=== PATIENT | female | born 1955 | race Caucasian/White ===

== ENCOUNTER 2019-06-05 13:35 | Emergency (ER) | payer MEDICARE, MEDICAID, SELFPAY ==
[2019-06-05 13:38] VITALS: BP 158/82; PULSE 100; RESP 24; TEMP 37; O2SAT 98; BMI 36.8
[2019-06-05 15:20] VITALS: BP 154/77; PULSE 87; RESP 22; O2SAT 96
--- NOTE | 2019-06-05 15:27 | W.ED.NAVMDI ---
Documented by User: Miranda Vernon 06/05/19 16:44 HPI - Nausea/Vomiting/Diarrhea General: Chief complaint: Nausea/Vomiting/Diarrhea Stated complaint: sob Time Seen by Provider: 06/05/19 15:16 Source: patient Mode of arrival: ambulatory History of Present Illness: HPI Narrative: Pt states that she has been unable to eat for 3 weeks due to nausea and vomiting. She states once she is able to swallow anything it immediately comes back up in a projectile vomit. She has had some diarrhea but only a few episodes. She is feeling weak from inability to eat. Notes a constant fullness. MD elicited complaint: nausea, vomiting, diarrhea and abdominal pain Associated nausea: Yes Location of pain: Epigastric Quality: cramping and stabbing Associated symtoms: Reports nausea Review of Systems General: Reports: 10 or more systems reviewed and unremarkable except in HPI and below Const: Reports: change in appetite Resp: Reports: shortness of breath GI: Reports: abdominal pain, nausea, vomiting, difficulty swallowing and feeling full early PFS ED PFSH: Social History Smoking and tobacco status: current every day smoker Physical Exam Const: COMMON NORMALS: no apparent distress, oriented x3, no limitations and alert GENERAL APPEARANCE: cooperative and comfortable ORIENTATION/CONSCIOUSNESS: Yes awake, Yes oriented to person, Yes oriented to place and Yes oriented to time HENMT: COMMON NORMALS: normocephalic, head/scalp atraumatic, external ears normal, EAC's normal, TM's normal bilaterally and external nose normal HEAD & SCALP: normal to inspection, normocephalic and atraumatic FACE & SINUS: normal facial exam, sinuses nontender and face symmetric NOSE: external nose normal, nares normal and no nasal discharge EXTERNAL EAR: Yes external ears normal EXTERNAL AUDITORY CANAL: EAC's normal TYMPANIC MEMBRANE: TM's normal bilaterally MOUTH: oral and palatal mucosa normal, lip normal and tongue normal THROAT: posterior oropharynx normal, tonsils normal and uvula midline Eye: COMMON NORMALS: PERRL, EOMs intact bilaterally and conjunctivae normal GENERAL EYE: normal appearance of both eyes and normal light reflex EYELID: eyelids normal CONJUNCTIVA: Yes conjunctivae normal PUPIL: Yes PERRL EOM: Yes EOM abnormal DIRECT OPHTHALMOSCOPY: Yes normal light reflex Neck/C-Spine: COMMON NORMALS: full ROM, no lymphadenopathy, supple, no meningeal signs, no JVD and thyroid normal GENERAL: Yes normal visual inspection THYROID: thyroid normal CERVICAL SPINE: Yes cervical ROM normal and Yes normal cervical lordosis Lymph: LYMPHATIC: no lymphadenopathy noted Chest: COMMONS NORMALS: inspection of chest normal and palpation of chest normal Resp: COMMON NORMALS: normal respiratory effort, no retractions and clear to auscultation bilaterally AUSCULTATION: clear to auscultation bilaterally Cardio: COMMON NORMALS: no JVD, regular rate, regular rhythm, S1 normal heart sound, S2 normal heart sound, no gallops, no clicks, no murmurs, no rub and peripheral pulses 2+ throughout RATE: regular rate RHYTHM: regular rhythm HEART SOUNDS: S1 normal and S2 normal PERIPHERAL PULSES: pulses 2+ throughout GI: COMMON NORMALS: normal to inspection, nondistended, normoactive bowel sounds INSPECTION: Yes normal to inspection PALPATION: Yes firm, Yes tender and Yes guarding : COMMON NORMALS: No no CVA tenderness and Yes external appearance normal BLADDER/KIDNEY EXAM: No no CVA tenderness Back/Pelvis: COMMON NORMALS: negative for no CVA tenderness Extremity: COMMON NORMALS: normal to inspection, full ROM, normal capillary refill, no joint enlargement, no clubbing, cyanosis or edema, no calf tenderness and no pedal edema GENERAL: Yes normal exam except as noted Neuro: COMMON NORMALS: oriented x3, moves all extremities, no focal motor deficits, no sensory deficits noted and gait normal SENSORIUM/ORIENTATION: Yes alert, Yes oriented to person, Yes oriented to place and Yes oriented to time MENINGEAL SIGNS: Yes no meningeal signs Psych: COMMON NORMALS: mental status grossly normal, thought process normal, cooperative, affect normal, speech normal and activity/motor behavior normal SPEECH: Yes normal speech THOUGHT PROCESS: normal thought process Skin: COMMON NORMALS: no rashes or lesions noted, no wounds and skin turgor normal GENERAL SKIN EXAM: no rashes or lesions noted and turgor normal Course ED course: Pt appears uncomfortable during examination but not toxic. Her abdomen is notably distended and is guarding of the epigastric region. Labs, IV meds, and imaging ordered. Awaiting results. Vital Signs: Vital signs: Vital Signs Temperature 98.6 F 06/05/19 13:38 Pulse Rate 94 06/05/19 18:21 Respiratory Rate 17 06/05/19 18:21 Blood Pressure 120/85 06/05/19 18:21 Pulse Oximetry 95 06/05/19 18:21 MDM - Nausea/Vomiting/Diarrhea Lab Data: Labs: Lab Results 06/05/19 06/05/19 06/05/19 Range/Units 15:22 15:22 17:34 WBC 7.4 (4.0-10.0) 10^3/ uL RBC 3.92 L (4.1-5.3) 10^6/u L Hgb 12.0 (11.5-15.3) g/dL Hct 36.2 L (37.0-47.0) % MCV 92.3 (81-99) fL MCH 30.6 (28.0-34.0) pg MCHC 33.1 (30.0-36.0) g/dL RDW 14.4 (12.1-15.1) % Plt Count 341 (130-400) 10^3/c mm MPV 9.0 (7.4-10.4) fL Neut % (Auto) 63.9 % Lymph % (Auto) 24.7 % [place] % (Auto) 10.2 % Eos % (Auto) 0.4 % Baso % (Auto) 0.4 % Neut # (Auto) 4.7 (1.8-7.7) 10^3/u L Lymph # (Auto) 1.8 (0.8-4.8) 10^3/u L [place] # (Auto) 0.8 (0.2-0.9) 10^3/u L Eos # (Auto) 0.0 (0.0-0.8) 10^3/u L Baso # (Auto) 0.0 (0.0-0.1) 10^3/u L Nucleated RBC % (a uto) 0 % Nucleated RBCs # 0.0 /100WBC Sodium 134 L (136-145) mmol/L Potassium 3.6 (3.5-5.1) mmol/L Chloride 97 L (98-107) mmol/L Carbon Dioxide 23 (22-29) mmol/L Anion Gap 17.6 (5-19) BUN 14 (8-23) mg/dL Creatinine 1.1 H (0.5-0.9) mg/dL GFR Calculation 49.8 L (90-130) mL/min Glucose 109 (65-115) mg/dL Calculated Osmolal ity 275 L (285-295) mOsm/k g Calcium 8.8 (8.5-10.5) mg/dL Total Bilirubin 0.4 (0.15-1.2) mg/dL AST 17 (0-32) U/L ALT 7 (0-33) U/L Alkaline Phosphata se 78 (35-105) IU/L Total Protein 6.3 L (6.6-8.7) g/dL Albumin 3.3 L (3.5-5.2) g/dL Globulin 3.0 (1.3-4.6) g/dL Urine Color Yellow (Yellow) Urine Appearance Clear (CLEAR) Urine pH 7 (5-7) Ur Specific Gravit y 1.000 L (1.005-1.030) Urine Protein Neg (Negative) Urine Glucose (UA) Norm (Normal) Urine Ketones Negative (Negative) Urine Blood 2+ H (Negative) Urine Nitrate Negative (Negative) Urine Bilirubin Neg (NEGATIVE) Urine Urobilinogen Norm (Negative) mg/dL Ur Leukocyte Kaylee ase Negative (Negative) Urine RBC 0-4 H (0-2) /hpf Urine WBC None (0-5) /hpf Ur Squamous Epith Cells 0-4 H (0-5) Urine Bacteria Trace (NONE) Discharge Plan Discharge Patient Disposition: Home, Self-Care Clinical Impression: Acid reflux Qualifiers: Esophagitis presence: with esophagitis Qualified Code(s): K21.0 - Gastro-esophageal reflux disease with esophagitis Condition: Stable Prescriptions: New Zofran 4 mg tablet 4 mg PO Q6H PRN (Reason: nausea and vomiting) Qty: 14 RF: 0 Zantac 150 mg tablet 150 mg PO DAILY Qty: 30 RF: 0 Protonix 40 mg tablet,delayed release (DR/EC) 40 mg PO DAILY 28 Days RF: 0 No Action tizanidine 4 mg tablet 2 - 4 mg PO BID RF: 0 Keflex 250 mg Capsule 500 mg PO TID RF: 0 hydrocodone-acetaminophen 10-325 mg tablet See Rx Instructions .ROUTE .COMPLEX RF: 0 Sola-York Original 325-1,916-1,000 mg Tablet, Effervescent 1 tab PO TID PRN (Reason: unknown) RF: 0 Silver Biotics 5 ml PO BID RF: 0 aspirin 325 mg Tablet 325 mg PO DAILY PRN (Reason: unknown) RF: 0 Discharge Orders: Discharge Order (Routine); Ordered 06/05/19 Ordered By: July Esquivel Referrals: Kashmir Lebron DO [Family Provider] - Discharge Diet: Clear Liquid Discharge Activity: Resume usual activity Activity Restrictions/Additional Instructions: Please follow up with Dr. Lebron to see if he would like you to follow up with GI. Depending on your insurance, you may be able to call to [facility] and schedule an appointment without a referral. Discharge Date/Time: 06/05/19 18:21 Sign Out Sign Out Data: Patient Sign Out occurred on 06/05/19 at 17:18. Patient's care was discussed, and care was transferred from to ELISEO Hartmann. Coding Level of Care Code ED Electronic Integrated Systems Mechanic for Chg Fwd Exam Comprehensive Documented by User: ELISEO Hartmann 06/05/19 22:06 HPI - Nausea/Vomiting/Diarrhea General: Chief complaint: Nausea/Vomiting/Diarrhea Stated complaint: sob Time Seen by Provider: 06/05/19 15:16 [facility] ED PFSH: Social History Smoking and tobacco status: current every day smoker Course Vital Signs: Vital signs: Vital Signs Temperature 98.6 F 06/05/19 13:38 Pulse Rate 94 06/05/19 18:21 Respiratory Rate 17 06/05/19 18:21 Blood Pressure 120/85 06/05/19 18:21 Pulse Oximetry 95 06/05/19 18:21 MDM - Nausea/Vomiting/Diarrhea MDM Narrative: Medical decision making narrative: Care assumed from CARL Villegas pending results of her CT scan. CT scan is unremarkable at this time. Note states that she is not able to eat or drink anything for 3 weeks however patient is able to hold down liquids and soft foods. Patient tells me she does have a longstanding history of GERD. She at one point was taking Zantac however due to the recall of this medication states she is no longer taking it and feels like her symptoms started after she stopped this medication. Ultimately based on her symptoms it sounds like she would benefit from a GI consultation/possible EGD. Patient states she is not a candidate for EGD as she was told she has some type of diverticuli in her esophagus that make scoping her impossible. Recommend she follow-up with Dr. Lebron for GI referral or based on her insurance may be able to call up to [facility] and get this referral on her own. I believe some manufacturers are still producing Zantac that has not been recalled so we will go ahead and write her prescription for this in hopes that pharmacy can fill it. We will also place her on Protonix and Zofran. Return to ED precautions given. Lab Data: Labs: Lab Results 06/05/19 06/05/19 06/05/19 Range/Units 15:22 15:22 17:34 WBC 7.4 (4.0-10.0) 10^3/ uL RBC 3.92 L (4.1-5.3) 10^6/u L Hgb 12.0 (11.5-15.3) g/dL Hct 36.2 L (37.0-47.0) % MCV 92.3 (81-99) fL MCH 30.6 (28.0-34.0) pg MCHC 33.1 (30.0-36.0) g/dL RDW 14.4 (12.1-15.1) % Plt Count 341 (130-400) 10^3/c mm MPV 9.0 (7.4-10.4) fL Neut % (Auto) 63.9 % Lymph % (Auto) 24.7 % [place] % (Auto) 10.2 % Eos % (Auto) 0.4 % Baso % (Auto) 0.4 % Neut # (Auto) 4.7 (1.8-7.7) 10^3/u L Lymph # (Auto) 1.8 (0.8-4.8) 10^3/u L [place] # (Auto) 0.8 (0.2-0.9) 10^3/u L Eos # (Auto) 0.0 (0.0-0.8) 10^3/u L Baso # (Auto) 0.0 (0.0-0.1) 10^3/u L Nucleated RBC % (a uto) 0 % Nucleated RBCs # 0.0 /100WBC Sodium 134 L (136-145) mmol/L Potassium 3.6 (3.5-5.1) mmol/L Chloride 97 L (98-107) mmol/L Carbon Dioxide 23 (22-29) mmol/L Anion Gap 17.6 (5-19) BUN 14 (8-23) mg/dL Creatinine 1.1 H (0.5-0.9) mg/dL GFR Calculation 49.8 L (90-130) mL/min Glucose 109 (65-115) mg/dL Calculated Osmolal ity 275 L (285-295) mOsm/k g Calcium 8.8 (8.5-10.5) mg/dL Total Bilirubin 0.4 (0.15-1.2) mg/dL AST 17 (0-32) U/L ALT 7 (0-33) U/L Alkaline Phosphata se 78 (35-105) IU/L Total Protein 6.3 L (6.6-8.7) g/dL Albumin 3.3 L (3.5-5.2) g/dL Globulin 3.0 (1.3-4.6) g/dL Urine Color Yellow (Yellow) Urine Appearance Clear (CLEAR) Urine pH 7 (5-7) Ur Specific Gravit y 1.000 L (1.005-1.030) Urine Protein Neg (Negative) Urine Glucose (UA) Norm (Normal) Urine Ketones Negative (Negative) Urine Blood 2+ H (Negative) Urine Nitrate Negative (Negative) Urine Bilirubin Neg (NEGATIVE) Urine Urobilinogen Norm (Negative) mg/dL Ur Leukocyte Kaylee ase Negative (Negative) Urine RBC 0-4 H (0-2) /hpf Urine WBC None (0-5) /hpf Ur Squamous Epith Cells 0-4 H (0-5) Urine Bacteria Trace (NONE) Imaging Data^: CT Abd/Pel: Radiologist's impression: [address] [address] [address] Scan Report Signed Patient: Marele Vanessa Unit #: [id number] : 1955 [id number] Age/Sex: 63 / F ADM Date: 06/05/19 Loc: ER Room/Bed: Attending Dr: Ordering Provider/Ordering MD: Miranda Vernon NP Date of Service: 06/05/19 Procedure(s): CT abdomen pelvis w con* [id number] Accession Number(s): [id number] Report Number: [id number] PROCEDURE INFORMATION: Exam: CT Abdomen And Pelvis With Contrast Exam date and time: 06/05/2019 4:31 PM Age: 63 years old Clinical indication: Abdominal pain; Epigastric; Prior surgery; Surgery type: Gb, appy, tubal, hysto; Additional info: Nv/epigastric pain TECHNIQUE: Imaging protocol: Computed tomography of the abdomen and pelvis with intravenous contrast. Total DLP: 1806.03 mGy-cm Radiation optimization: All CT scans at this facility use at least one of these dose optimization techniques: automated exposure control; mA and/or kV adjustment per patient size (includes targeted exams where dose is matched to clinical indication); or iterative reconstruction. Contrast material: VISI 320; Contrast volume: 95 ml; Contrast route: IV; COMPARISON: No relevant prior studies available. FINDINGS: Lungs: Limited assessment lung bases without visible evidence of active cardiopulmonary process. Liver: Mild hepatomegaly. Gallbladder and bile ducts: Status post cholecystectomy. Maximum diameter of the common bile duct lumen 10 mm. No visible significant intra or extrahepatic biliary ectasia. No visible choledocholithiasis. Pancreas: Pancreas unremarkable. No pancreatic ductal ectasia visible. Spleen: Spleen unremarkable. No splenomegaly. Adrenals: Adrenal glands unremarkable. Kidneys and ureters: Tiny nonobstructing calyceal nephrolithiasis foci inferior pole left kidney measuring 3 mm. No hydronephrosis or perinephric fluid. No visible ureterolithiasis. No visible bladder stone. Stomach and bowel: Mild diverticulosis coli without evidence for diverticulitis. No evidence for adynamic or reactive ileus. Appendix: Status post appendectomy. Intraperitoneal space: See Reproductive finding. Vasculature: The abdominal aorta is nonaneurysmal. Mild arterial sclerotic disease. Lymph nodes: No visible evidence of mesenteritis/panniculitis or mesenteric lymphadenitis/lymphadenopathy. Bladder: See Kidneys and ureters finding. Reproductive: Status post hysterectomy. No free fluid the pelvis identified. Bones/joints: Early degenerative disease and degenerative disc disease L5/S1 with early vacuum disc phenomenon. Facet arthrosis. Soft tissues: Heavy body habitus. CT/CT abdomen pelvis w con* [id number] IMPRESSION: 1. Currently no visible evidence for acute abdominal or pelvic pathologic process. 2. Tiny nonobstructing calyceal nephrolithiasis foci inferior pole left kidney approximately 3 mm. 3. Nonurgent/nonemergent, chronic, and postoperative findings discussed in text above. Radiation Dose CTDIVOL = (mGy): DLP = 1806.03 (mGy-cm) Dictated By: Manpreet Gonzalez Signed By: Manpreet Gonzalez Signed Date/Time: 06/05/191733 DD/ 32 Discharge Plan Discharge Patient Disposition: Home, Self-Care Clinical Impression: Acid reflux Qualifiers: Esophagitis presence: with esophagitis Qualified Code(s): K21.0 - Gastro-esophageal reflux disease with esophagitis Condition: Stable Prescriptions: New Zofran 4 mg tablet 4 mg PO Q6H PRN (Reason: nausea and vomiting) Qty: 14 RF: 0 Zantac 150 mg tablet 150 mg PO DAILY Qty: 30 RF: 0 Protonix 40 mg tablet,delayed release (DR/EC) 40 mg PO DAILY 28 Days RF: 0 No Action tizanidine 4 mg tablet 2 - 4 mg PO BID RF: 0 Keflex 250 mg Capsule 500 mg PO TID RF: 0 hydrocodone-acetaminophen 10-325 mg tablet See Rx Instructions .ROUTE .COMPLEX RF: 0 Sola-[place] Original 325-1,916-1,000 mg Tablet, Effervescent 1 tab PO TID PRN (Reason: unknown) RF: 0 Silver Biotics 5 ml PO BID RF: 0 aspirin 325 mg Tablet 325 mg PO DAILY PRN (Reason: unknown) RF: 0 Discharge Orders: Discharge Order (Routine); Ordered 06/05/19 Ordered By: July Esquivel Referrals: Kashmir Lebron DO [Family Provider] - Discharge Diet: Clear Liquid Discharge Activity: Resume usual activity Activity Restrictions/Additional Instructions: Please follow up with Dr. Lebron to see if he would like you to follow up with GI. Depending on your insurance, you may be able to call to [facility] and schedule an appointment without a referral. Discharge Date/Time: 06/05/19 18:21 Sign Out Sign Out Data: Patient Sign Out occurred on 06/05/19 at 17:18. Patient's care was discussed, and care was transferred from to ELISEO Hartmann. Coding Level of Care Code ED Electronic Integrated Systems Mechanic for Chg Fwd Exam Comprehensive
--- NOTE | 2019-06-05 15:56 | CTR_ITS ---
PROCEDURE INFORMATION: Exam: CT Abdomen And Pelvis With Contrast Exam date and time: 06/05/2019 4:31 PM Age: 63 years old Clinical indication: Abdominal pain; Epigastric; Prior surgery; Surgery type: Gb, appy, tubal, hysto; Additional info: Nv/epigastric pain TECHNIQUE: Imaging protocol: Computed tomography of the abdomen and pelvis with intravenous contrast. Total DLP: 1806.03 mGy-cm Radiation optimization: All CT scans at this facility use at least one of these dose optimization techniques: automated exposure control; mA and/or kV adjustment per patient size (includes targeted exams where dose is matched to clinical indication); or iterative reconstruction. Contrast material: VISI 320; Contrast volume: 95 ml; Contrast route: IV; COMPARISON: No relevant prior studies available. FINDINGS: Lungs: Limited assessment lung bases without visible evidence of active cardiopulmonary process. Liver: Mild hepatomegaly. Gallbladder and bile ducts: Status post cholecystectomy. Maximum diameter of the common bile duct lumen 10 mm. No visible significant intra or extrahepatic biliary ectasia. No visible choledocholithiasis. Pancreas: Pancreas unremarkable. No pancreatic ductal ectasia visible. Spleen: Spleen unremarkable. No splenomegaly. Adrenals: Adrenal glands unremarkable. Kidneys and ureters: Tiny nonobstructing calyceal nephrolithiasis foci inferior pole left kidney measuring 3 mm. No hydronephrosis or perinephric fluid. No visible ureterolithiasis. No visible bladder stone. Stomach and bowel: Mild diverticulosis coli without evidence for diverticulitis. No evidence for adynamic or reactive ileus. Appendix: Status post appendectomy. Intraperitoneal space: See Reproductive finding. Vasculature: The abdominal aorta is nonaneurysmal. Mild arterial sclerotic disease. Lymph nodes: No visible evidence of mesenteritis/panniculitis or mesenteric lymphadenitis/lymphadenopathy. Bladder: See Kidneys and ureters finding. Reproductive: Status post hysterectomy. No free fluid the pelvis identified. Bones/joints: Early degenerative disease and degenerative disc disease L5/S1 with early vacuum disc phenomenon. Facet arthrosis. Soft tissues: Heavy body habitus. CT/CT abdomen pelvis w con* [id number] IMPRESSION: 1. Currently no visible evidence for acute abdominal or pelvic pathologic process. 2. Tiny nonobstructing calyceal nephrolithiasis foci inferior pole left kidney approximately 3 mm. 3. Nonurgent/nonemergent, chronic, and postoperative findings discussed in text above. Radiation Dose CTDIVOL = (mGy): DLP = 1806.03 (mGy-cm)
[2019-06-05 16:07] LABS: Basophils % 0.4 %; Eosinophils % 0.4 %; Hematocrit 36.2 % (37.0-47.0); Lymphocytes # 1.8 10^3/uL (0.8-4.8); Lymphocytes % 24.7 %; Mean Corpuscular HGB Conc 33.1 g/dL (30.0-36.0); Mean Corpuscular Hemoglobin 30.6 pg (28.0-34.0); Mean Corpuscular Volume 92.3 fL (81-99); Monocytes # 0.8 10^3/uL (0.2-0.9); Monocytes % 10.2 %; Neutrophils # 4.7 10^3/uL (1.8-7.7); Neutrophils % 63.9 %; Nucleated Red Blood Cells % 0 %; Platelet Count 341 10^3/cmm (130-400); Red Blood Count 3.92 10^6/uL (4.1-5.3); Red Cell Distribution Width 14.4 % (12.1-15.1); White Blood Count 7.4 10^3/uL (4.0-10.0)
[2019-06-05] MEDS: sodium chloride 0.9% 500 ML 999 ML IV (16:08)
[2019-06-05] MEDS: pantoprazole 40 mg SDV IVP (16:08)
[2019-06-05] MEDS: ondansetron 2 mg/ML SDV 2 mL 4 MG IVP (16:09)
[2019-06-05 16:17] LABS: Alanine Aminotransferase 7 U/L (0-33); Albumin Level 3.3 g/dL (3.5-5.2); Alkaline Phosphatase 78 IU/L (35-105); Anion Gap 17.6 (5-19); Aspartate Amino Transferase 17 U/L (0-32); Blood Urea Nitrogen 14 mg/dL (8-23); Calcium 8.8 mg/dL (8.5-10.5); Carbon Dioxide 23 mmol/L (22-29); Chloride 97 mmol/L (98-107); Glomerular Filtration Rate 49.8 mL/min (90-130); Glucose 109 mg/dL (65-115); Osmolality Calculated 275 mOsm/kg (285-295); Potassium 3.6 mmol/L (3.5-5.1); Sodium 134 mmol/L (136-145); Total Bilirubin 0.4 mg/dL (0.15-1.2); Total Protein 6.3 g/dL (6.6-8.7)
[2019-06-05] MEDS: iodixanol 320 mg/mL 100mL Btl IV (16:50)
[2019-06-05 18:02] LABS: Add Urine Microscopic? YES; Bilirubin Urine Neg (NEGATIVE); Blood Urine 2+ (Negative); Glucose Urine UA Norm (Normal); Ketones Urine Negative (Negative); Leukocyte Esterase Urine Negative (Negative); Nitrate Urine Negative (Negative); Protein Urine Neg (Negative); Urine Appearance Clear (CLEAR); Urine Color Yellow (Yellow); Urobilinogen Urine Norm (Negative); pH Urine 7 (5-7)
[2019-06-05 18:08] LABS: Add Urine Culture? No; Bacteria Urine TRACE; RBC Urine 0-4 /hpf (0-2); Squamous Epithelial Cell Urine 0-4 (0-5)
[2019-06-05 18:21] VITALS: BP 120/85; PULSE 94; RESP 17; O2SAT 95
== END 2019-06-05 18:21 | disposition home or self-care (01) ==
PROVIDERS: Nurse Practitioner Family; Emergency Provider Physician Assistant; Family Provider Internal Medicine
DX: K21.0 Gastro-esophageal reflux disease with esophagitis (principal); F17.210 Nicotine dependence, cigarettes, uncomplicated; N20.0 Calculus of kidney
CPT/HCPCS: 12345; 74177; 80053; 81001; 85025; 96360; 96361; 96374; 96375; 99282; 99283; C9113; J2405; J7040; Q9967

== ENCOUNTER 2019-06-12 13:38 | Inpatient (IN) | payer MEDICARE, MEDICAID, SELFPAY ==
[2019-06-12 13:43] VITALS: BP 162/122; PULSE 94; RESP 18; TEMP 37.1; O2SAT 96; BMI 34.3
--- NOTE | 2019-06-12 13:51 | ED_ITS ---
Entered by Antonia Atwood, acting as scribe for Sixto Bowling DO HPI - SOB/Dyspnea General: Chief Complaint: Shortness of Breath/Dyspnea Stated Complaint: SOB Time Seen by Provider: 06/12/19 13:47 Source: patient Mode of arrival: ambulatory Limitations: no limitations History of Present Illness: MD elicited complaint: shortness of breath and cough (last night) Onset (ago): week(s) (3 weeks ago) Context: recent illness Timing: constant and progressively worsening Severity: moderate Exacerbating factors: exertion, coughing and deep breaths Relieving factors: nothing Associated symptoms: Reports cough Treatment prior to arrival: none PFSH ED PFSH: Medical History History of TIA (transient ischemic attack) HTN (hypertension) Social History Smoking and tobacco status: current every day smoker Physical Exam Const: COMMON NORMALS: no apparent distress, average body habitus, oriented x3, no limitations, healthy appearing, alert and well nourished HENMT: COMMON NORMALS: normocephalic, head/scalp atraumatic, hearing grossly normal bilaterally, external ears normal, EAC's normal, TM's normal bilaterally, external nose normal, nasal mucous membranes and turbinates normal, moist oral mucous membranes, oropharynx normal, dentition normal and gingiva normal HEAD & SCALP: normocephalic and atraumatic NOSE: external nose normal and nasal mucous membranes and turbinates normal EXTERNAL EAR: Yes external ears normal EXTERNAL AUDITORY CANAL: EAC's normal TYMPANIC MEMBRANE: TM's normal bilaterally Eye: COMMON NORMALS: PERRL, EOMs intact bilaterally, conjunctivae normal, no scleral icterus, no papilledema, normal visual benitez by confrontation and fundi normal bilaterally CONJUNCTIVA: Yes conjunctivae normal PUPIL: Yes PERRL DIRECT OPHTHALMOSCOPY: Yes no papilledema and Yes fundi normal bilaterally Neck/C-Spine: COMMON NORMALS: full ROM, no lymphadenopathy, supple, no meningeal signs, no JVD, thyroid normal and no carotid bruits THYROID: thyroid normal Chest: COMMONS NORMALS: inspection of chest normal and palpation of chest normal Cardio: COMMON NORMALS: no JVD, regular rate, regular rhythm, S1 normal heart sound, S2 normal heart sound, no gallops, no clicks, no murmurs, no rub and peripheral pulses 2+ throughout RATE: regular rate RHYTHM: regular rhythm HEART SOUNDS: S1 normal and S2 normal PERIPHERAL PULSES: pulses 2+ throughout GI: COMMON NORMALS: normal to inspection, nondistended, normoactive bowel sounds, soft to palpation, non-tender, no hepatosplenomegaly, no masses and no bruits PALPATION: Yes soft and Yes no hepatosplenomegaly : COMMON NORMALS: Yes no CVA tenderness and Yes external appearance normal BLADDER/KIDNEY EXAM: Yes no CVA tenderness Back/Pelvis: COMMON NORMALS: no CVA tenderness, thoracic and lumbar spine normal to inspection, no thoracic nor lumbar tenderness, thoraco-lumbar ROM normal and straight leg raise negative bilaterally Extremity: COMMON NORMALS: normal to inspection, full ROM, normal capillary refill, no joint enlargement, no clubbing, cyanosis or edema, no calf tenderness and no pedal edema Neuro: COMMON NORMALS: oriented x3 SENSORIUM/ORIENTATION: Yes alert MENINGEAL SIGNS: Yes no meningeal signs Skin: COMMON NORMALS: no rashes or lesions noted, no wounds, skin turgor normal, no jaundice, no petechiae and no mottling GENERAL SKIN EXAM: no rashes or lesions noted and turgor normal Course Vital Signs: Vital signs: Vital Signs Temperature 98.7 F 06/12/19 13:43 Pulse Rate 94 06/12/19 13:43 Respiratory Rate 18 06/12/19 13:43 Blood Pressure 162/122 06/12/19 13:43 Pulse Oximetry 96 06/12/19 13:43 MDM - SOB/Dyspnea Lab Data: Labs: Lab Results 06/12/19 06/12/19 06/12/19 Range/Units 14:25 14:25 14:43 WBC 7.9 (4.0-10.0) 10^3/ uL RBC 3.47 L (4.1-5.3) 10^6/u L Hgb 10.5 L (11.5-15.3) g/dL Hct 33.4 L (37.0-47.0) % MCV 96.3 (81-99) fL MCH 30.3 (28.0-34.0) pg MCHC 31.4 (30.0-36.0) g/dL RDW 15.5 H (12.1-15.1) % Plt Count 287 (130-400) 10^3/c mm MPV 9.1 (7.4-10.4) fL Neut % (Auto) 74.7 % Lymph % (Auto) 15.2 % Letcher % (Auto) 8.5 % Eos % (Auto) 0.9 % Baso % (Auto) 0.3 % Neut # (Auto) 5.9 (1.8-7.7) 10^3/u L Lymph # (Auto) 1.2 (0.8-4.8) 10^3/u L Letcher # (Auto) 0.7 (0.2-0.9) 10^3/u L Eos # (Auto) 0.1 (0.0-0.8) 10^3/u L Baso # (Auto) 0.0 (0.0-0.1) 10^3/u L Nucleated RBC % (a uto) 0 % Nucleated RBCs # 0.0 /100WBC Sodium 136 (136-145) mmol/L Potassium 4.4 (3.5-5.1) mmol/L Chloride 102 (98-107) mmol/L Carbon Dioxide 21 L (22-29) mmol/L Anion Gap 17.4 (5-19) BUN 11 (8-23) mg/dL Creatinine 0.9 (0.5-0.9) mg/dL GFR Calculation 62.8 L (90-130) mL/min Glucose 99 (65-115) mg/dL Calculated Osmolal ity 278 L (285-295) mOsm/k g Calcium 9.1 (8.5-10.5) mg/dL Total Bilirubin 0.5 (0.15-1.2) mg/dL AST 18 (0-32) U/L ALT 9 (0-33) U/L Alkaline Phosphata se 86 (35-105) IU/L NT-Pro-B Natriuret Pep 2251 H (0-125) pg/mL Total Protein 6.7 (6.6-8.7) g/dL Albumin 4.0 (3.5-5.2) g/dL Globulin 2.7 (1.3-4.6) g/dL Influenza Type A A g Negative (Negative) POC Influenza B Ag Negative (Negative) Discharge Plan Discharge Patient Disposition: Admitted As Inpatient Clinical Impression: Congestive heart failure Qualifiers: Heart failure type: unspecified Heart failure chronicity: acute on chronic Qualified Code(s): I50.9 - Heart failure, unspecified Condition: Fair Referrals: Kashmir Lebron DO [Family Provider] - Coding Level of Care Code ED Employment Director for Chg Fwd Exam Comprehensive The documentation recorded by the Rai castrejon Bridget Annette, accurately reflects the service I personally performed and the decisions made by Dash rios Donald P, DO Jun 12, 2019 13:38
--- NOTE | 2019-06-12 13:57 | XR_ITS ---
WS: [id number] Portable AP upright chest, 06/12/2019 Clinical Data: dyspnea Comparison: PA and lateral chest, 08/02/2018. Findings: The heart is enlarged and the pulmonary vascularity is increased. There may be small bilate ral effusions. The aortic arch and descending aorta are tortuous. No pneumonia or pneumothorax is see n. XR/XR chest 1V portable [id number] Impression: Moderate congestive heart failure.
[2019-06-12 15:03] LABS: Alanine Aminotransferase 9 U/L (0-33); Alkaline Phosphatase 86 IU/L (35-105); Anion Gap 17.4 (5-19); Aspartate Amino Transferase 18 U/L (0-32); Blood Urea Nitrogen 11 mg/dL (8-23); Calcium 9.1 mg/dL (8.5-10.5); Carbon Dioxide 21 mmol/L (22-29); Chloride 102 mmol/L (98-107); Globulin 2.7 g/dL (1.3-4.6); Glomerular Filtration Rate 62.8 mL/min (90-130); Glucose 99 mg/dL (65-115); NT Pro B Type Natriuretic Pept 2251 pg/mL (0-125); Osmolality Calculated 278 mOsm/kg (285-295); Potassium 4.4 mmol/L (3.5-5.1); Sodium 136 mmol/L (136-145); Total Bilirubin 0.5 mg/dL (0.15-1.2); Total Protein 6.7 g/dL (6.6-8.7)
[2019-06-12 15:17] LABS: Influenza A by IFA Negative (Negative); Influenza B by IFA Negative (Negative)
[2019-06-12 15:23] LABS: Basophils % 0.3 %; Eosinophils # 0.1 10^3/uL (0.0-0.8); Eosinophils % 0.9 %; Hematocrit 33.4 % (37.0-47.0); Hemoglobin 10.5 g/dL (11.5-15.3); Lymphocytes # 1.2 10^3/uL (0.8-4.8); Lymphocytes % 15.2 %; Mean Corpuscular HGB Conc 31.4 g/dL (30.0-36.0); Mean Corpuscular Hemoglobin 30.3 pg (28.0-34.0); Mean Corpuscular Volume 96.3 fL (81-99); Mean Platelet Volume 9.1 fL (7.4-10.4); Monocytes # 0.7 10^3/uL (0.2-0.9); Monocytes % 8.5 %; Neutrophils # 5.9 10^3/uL (1.8-7.7); Neutrophils % 74.7 %; Nucleated Red Blood Cells % 0 %; Platelet Count 287 10^3/cmm (130-400); Red Blood Count 3.47 10^6/uL (4.1-5.3); Red Cell Distribution Width 15.5 % (12.1-15.1); White Blood Count 7.9 10^3/uL (4.0-10.0)
[2019-06-12] MEDS: FUROsemide 10 mg/mL SDV 10mL 80 MG IVP (16:01)
[2019-06-12 16:33] LABS: Bilirubin Urine Neg (NEGATIVE); Blood Urine Neg (Negative); Glucose Urine UA Norm (Normal); Ketones Urine Negative (Negative); Leukocyte Esterase Urine Negative (Negative); Nitrate Urine Negative (Negative); Protein Urine Neg (Negative); Specific Gravity, Urine 1.015 (1.005-1.030); Sulfosalicylic Acid Urine Negative; Urine Appearance Clear (CLEAR); Urine Color Straw (Yellow)
[2019-06-12 16:34] LABS: Urobilinogen Urine Norm (Negative)
[2019-06-12] MEDS: ipratropium-albuterol 3 mL Neb INHALATION (16:36)
[2019-06-12 16:39] VITALS: PULSE 108; RESP 24; O2SAT 98
[2019-06-12 16:43] VITALS: PULSE 108; RESP 24; O2SAT 98
--- NOTE | 2019-06-12 17:31 | P.HP_ITS ---
Providers/Chief Complaint Admitting Physician: Renae Wong MD Primary Care Provider: Dr. Lebron Chief Complaint: Worsening SOB History of Present Illness Marlee Vanessa is a 63 year old female with PMHx of Chronic back pain, GERD, Chronic diastolic CHF (not aware of diagnosis previously), Chronic smoker, presents from home for evaluation of worsening shortness of breath over the past several days. She reports a recent GI related illness, had an ER visit on 06/04, was diagnosed with esophagitis and prescribed Protonix which patient states has been very helpful in managing her symptoms. She has had ongoing issues with shortness of breath particularly with exertion though she has noticed that she is having increased shortness of breath with minimal exertion which includes going to the bathroom, inability to lay down, some lower extremity swelling. She has anxiety at baseline and whenever she has an episode of worsening shortness of breath this increases her anxiety and further worsens her shortness of breath. She is not oxygen dependent at baseline and is not actually aware of her history of CHF. There is an echo that was done in July 2018 which is an ejection fraction of 65% with grade 1 diastolic dysfunction. She is not on any diuretics chronically. She has been a long-term smoker for over 40 years. Denies any fever/chills, chest pain though has had chest tightness, syncope or presyncope, recent travel, sick contacts. Influenza screen is negative, white c ount is normal at 7.9, hemoglobin is 10.5, chemistry is within normal limits, BNP is 2251, chest x-ray shows findings consistent with fluid overload. She has received an 80 mg dose of IV Lasix in addition to IV steroids and nebulizer treatment. She is being admitted for further diuresis and close monitoring of her hemodynamic and respiratory status. Review of Systems Const: Reports: change in appetite (decreased appetite) and fatigue; Denies: fever or chills Eyes: Denies: change in vision ENMT: Reports: other (ongoing dysphagia) Card: Reports: edema (bilateral UEs, LEs), swelling of feet/ankles, pre- syncope, shortness of breath on exertion, shortness of breath when lying down and other (chest tightness); Denies: chest pain or lightheadedness Resp: Denies: shortness of breath, productive cough or non-productive cough GI: Reports: bloating; Denies: abdominal pain, nausea, vomiting, vomiting blood or blood in stool : Denies: difficulty urinating, painful urination or urinary frequency Musc: Reports: back pain (chronic) Skin/Breast: Denies: rash Neuro: Denies: numbness in extremities or weakness in extremities Psych: Reports: anxiety Medications/Allergies Allergies Allergy/AdvReac Type Severity Reaction Status Date / Time Penicillins Allergy ALGY-Hives Verified 06/05/19 13:45 PFSH Acute PFSH: Medical History CKD (chronic kidney disease) stage 2, GFR 60-89 ml/min History of TIA (transient ischemic attack) HTN (hypertension) Surgical History H/O: hysterectomy History of cholecystectomy Family History (Updated 06/12/19 @ 19:31 by Renae Wong MD) Mother CAD (coronary artery disease) Social History (Updated 06/12/19 @ 19:32 by Renae Wong MD) Smoking and tobacco status: current every day smoker cigarettes Packs smoked per day: 1 Years cigarettes smoked: 40 Alcohol intake: never Substance/Drug Use: never Lives independently: Yes Vitals/I&O/Wt Last Vital Signs Temp 98.7 F 06/12/19 13:43 Pulse 108 H 06/12/19 16:43 Resp 24 H 06/12/19 16:43 BP 162/122 06/12/19 13:43 Pulse Ox 98 06/12/19 16:43 Weight last 48 hrs Weight 90.718 kg Physical Exam Const: COMMON NORMALS: no apparent distress and oriented x3 GENERAL APPEARANCE: cooperative and anxious; not in distress NUTRITIONAL APPEARANCE: obese morbidly obese ORIENTA TION/CONSCIOUSNESS: Yes awake HENMT: COMMON NORMALS: normocephalic, head/scalp atraumatic, hearing grossly normal bilaterally and moist oral mucous membranes HEAD & SCALP: normocephal ic and atraumatic Eye: COMMON NORMALS: PERRL, EOMs intact bilaterally and conjunctivae normal CONJUNCTIVA: Yes conjunctivae normal PUPIL: Yes PERRL Neck/C-Spine: COMMON NORMALS: full ROM GENERAL: Yes normal visual inspection and Yes trachea midline Resp: COMMON NORMALS: normal respiratory effort, no retractions and no use of accessory muscles EFFORT & INSPECTION: Yes able to speak in complete sentences, Yes symmetric chest movement and No tachypneic AUSCULTATION: crackles and diminished lung sounds OTHER: -on 3 L NC, 95% Cardio: COMMON NORMALS: regular rate, regular rhythm, S1 normal heart sound, S2 normal heart sound and no murmurs RATE: regular rate RHYTHM: regular rh ythm HEART SOUNDS: S1 normal and S2 normal GI: COMMON NORMALS: normal to inspection, nondistended, normoactive bowel so unds, soft to palpation and non-tender INSPECTION: Yes central obesity PALPATION: Yes soft Extremity: COMMON NORMALS: normal to inspection and full ROM; negative for no pedal edema NARRATIVE EXTREMITY EXAM: -1+ pitting edema of bilateral LEs Neuro: COMMON NORMALS: oriented x3, moves all extremities, no focal motor deficits, no sensory deficits noted and gait normal Psych: COMMON NORMALS: mental status grossly normal, thought process normal, cooperative and speech normal SPEECH: Yes normal speech MOOD & AFFECT: Yes anxious THOUGHT PROCESS: normal thought process Skin: COMMON NORMALS: no rashes or lesions noted, no jaundice, no petechiae and no mottling GENERAL SKIN EXAM: no rashes or lesions noted Data : 06/12/19 14:25 06/12/19 14:25 Micro: Microbiology 06/12/19 14:25 Blood Culture - Preliminary Blood SPECIMEN COLLECTED 06/12/19 14:10 Blood Culture - Preliminary Blood SPECIMEN COLLECTED A&P Assessment and plan (1) Congestive heart failure: -acute exacerbation of chronic diastolic CHF as evidenced by worsening SOB, LE edema, BNP elevation (2251), evidence of fluid overload on imaging -received 80 mg of IV lasix in ED, continue IV diuresis -telemetry monitoring -monitor vital signs -daily weights, monitor Is & Os -monitor renal function, lytes -Echo (07/2018): EF=65%, G1DD, no RWMA; negative nuclear stress testing in 12/2016 Status: Acute Qualifiers: Heart failure chronicity: acute on chronic Heart failure type: diastolic Qualified Code(s): I50.33 - Acute on chronic diastolic (congestive) heart failure Code(s): I50.9 - Heart failure, unspecified (2) CKD (chronic kidney disease) stage 2, GFR 60-89 ml/min: -baseline Cr wnl -monitor renal function with diuresis Status: Acute Code(s): N18.2 - Chronic kidney disease, stage 2 (mild) Additional A&P Information -Chronic smoker; nicotine replacement therapy -Morbid obesity: BMI-35 kg/m2 -GERD, reported hx of Zenker's diverticulum, chronic dysphagia -Acute macrocytic anemia; monitor H/H -Chronic back pain; on opiates -Anxiety; Ativan PRN -GI ppx with PPI -DVT ppx with Lovenox -Dispo: home -Code status: FULL code Attestations Medical Necessity Statement*: Marlee Vanessa's hospital stay will require greater than 2 midnights for management of acute CHF exacerbation, needs IV diuresis. Time Spent in Patient Care: Greater than 35 minutes (>than 50% of time spent in counselling and/or direct pt care on unit) . Coding Level of Care Code Acute Drivers' Cash Clerk for Adama Rosado Diagnoses Congestive heart failure I50.33 Heart failure chronicity: acute on chronic Heart failure type: diastolic CKD (chronic kidney disease) stage 2, GFR 60-89 ml/min N18.2
[2019-06-12 17:41] LABS: Add Urine Culture? No; Bacteria Urine TRACE; Squamous Epithelial Cell Urine 0-4 (0-5); WBC Urine 0-4 /hpf (0-5)
[2019-06-12 18:54] VITALS: BP 180/83; PULSE 78; RESP 16; O2SAT 95
[2019-06-12 20:15] VITALS: BP 156/84; PULSE 92; RESP 20; TEMP 37.4; O2SAT 90
[2019-06-12] MEDS: nicotine 14 mg Patch 1 PATCH TRANSDERMA (20:49)
[2019-06-12] MEDS: enoxaparin 40 mg/0.4 mL Syringe SUBCUT (20:51)
[2019-06-12] MEDS: metoprolol tartrate 25 mg Tablet PO (20:54)
[2019-06-12] MEDS: FUROsemide 10 mg/mL SDV 4mL 40 MG IVP (20:58)
[2019-06-12 22:59] VITALS: PULSE 78; RESP 20; O2SAT 91
[2019-06-13] VITALS (7 sets, daily range): BP systolic 106–182; BP diastolic 45–80; PULSE 64–91; RESP 17–20; TEMP 36.9–37.2; O2SAT 91–97
[2019-06-13] MEDS: HYDROcodone-acetaminophen 5-325 mg Tablet 1 TAB PO ×2 (03:56→12:14)
[2019-06-13 05:53] LABS: Hematocrit 31.6 % (37.0-47.0); Hemoglobin 10.2 g/dL (11.5-15.3); Lymphocytes % 16.4 %; Mean Corpuscular HGB Conc 32.3 g/dL (30.0-36.0); Mean Corpuscular Hemoglobin 30.6 pg (28.0-34.0); Mean Corpuscular Volume 94.9 fL (81-99); Mean Platelet Volume 8.7 fL (7.4-10.4); Monocytes # 0.2 10^3/uL (0.2-0.9); Monocytes % 4.2 %; Neutrophils # 4.6 10^3/uL (1.8-7.7); Neutrophils % 78.9 %; Nucleated Red Blood Cells % 0 %; Platelet Count 294 10^3/cmm (130-400); Red Blood Count 3.33 10^6/uL (4.1-5.3); Red Cell Distribution Width 15.1 % (12.1-15.1); White Blood Count 5.8 10^3/uL (4.0-10.0)
[2019-06-13 06:06] LABS: Anion Gap 18.3 (5-19); Blood Urea Nitrogen 16 mg/dL (8-23); Calcium 9.4 mg/dL (8.5-10.5); Carbon Dioxide 23 mmol/L (22-29); Chloride 97 mmol/L (98-107); Glomerular Filtration Rate 45.1 mL/min (90-130); Glucose 138 mg/dL (65-115); Magnesium 2.6 mg/dL (1.7-2.3); Osmolality Calculated 277 mOsm/kg (285-295); Potassium 4.3 mmol/L (3.5-5.1); Sodium 134 mmol/L (136-145)
[2019-06-13 06:18] LABS: Thyroid Stimulating Hormone 3.08 uIU/mL (0.27-4.20)
[2019-06-13 06:40] LABS: Estmated Average Glucose 105; Hemoglobin A1C 5.3 % (4.0-6.0)
[2019-06-13] MEDS: pantoprazole DR 40 mg Tablet PO (09:09)
[2019-06-13] MEDS: aspirin 81 mg EC Tablet PO (09:10)
[2019-06-13] MEDS: nicotine 14 mg Patch 1 PATCH TRANSDERMA (09:10)
[2019-06-13] MEDS: FUROsemide 10 mg/mL SDV 4mL 40 MG IVP (09:10)
[2019-06-13] MEDS: metoprolol tartrate 25 mg Tablet PO (09:10)
--- NOTE | 2019-06-13 10:00 | PC.CHAP ---
Pastoral Care Encounter/Spiritual Assessment Type of Contact [] Declined night assistant visit [] Patient/Family/Request visit [] Outpatient visit [] Follow-up visit [] Physician referral [] Code/Alert [x] Routine visit [] Staff referral [] Actively dying [] Patient sleeping [] Family support [] [] Out of room [] Palliative care [] [] Receiving care in room [] Pre-surgical visit [] Trauma [] Long length of stay [] ICU visit [] Other: Relational/Emotional Strength [x] Patient feels connected with others/family/visitors/staff [] Distress [] Loneliness/isolation [] Abandonment Spirituality of Patient [x] Person of [place] [x] Attends Christianity of their [place] [] Believes in Prayer [] Reads Bible or Muslim materials [] There are Spiritual issues to be addressed Auto Dismantler Interventions [x] Prayer [] Active listening [] Non-anxious presence [] Spiritual/emotional support [] Crisis/trauma care [] Spiritual counseling [] Bereavement support [] Provided bereavement packet [] Provided Bible/devotional materials [] Provided toy/stuffed animal, coloring book to patient or family member [] Provided Communion [] Anointing/[place] [] Salvation [] Completed spiritual assessment [] Other: Impact on Illness or Injury [] Angry [] Fearful [] Anxious [] Often cries [] Exhaustion [] Unable to work [] Unable to attend anabaptist [] Unable to walk/stand [] Unable to read [] Unable to drive [] Unable to eat/drink [] Unable to sleep [] Unable to be with family [] Patient intubated [] Other: Summary patient wants to go home Time spent with patient 10 min
--- NOTE | 2019-06-13 11:08 | PC.RESP ---
Patient given Smoking Cessation information.
--- NOTE | 2019-06-13 15:08 | P.DS_ITS ---
Discharge Providers Date of Admission: 06/12/19 17:30 Date of Discharge: June 13, 2019 Attending Provider at Admission: Renae Wong MD Attending Provider at Discharge: Renae Wong MD Diagnoses at Discharge Discharge Diagnosis (1) Congestive heart failure: Status: Acute Problem details: -acute exacerbation of chronic diastolic CHF as evidenced by worsening SOB, LE edema, BNP elevation (2251), evidence of fluid overload on imaging -received 80 mg of IV lasix in ED, continue IV diuresis -telemetry monitoring -monitor vital signs -daily weights, monitor Is & Os -monitor renal function, lytes -Echo (07/2018): EF=65%, G1DD, no RWMA; negative nuclear stress testing in 12/2016 Qualifiers: Heart failure chronicity: acute on chronic Heart failure type: diastolic Qualified Code(s): I50.33 - Acute on chronic diastolic (congestive) heart failure (2) CKD (chronic kidney disease) stage 2, GFR 60-89 ml/min: Status: Chronic Problem details: -baseline Cr wnl -monitor renal function with diuresis Other Information Additional DC diagnoses/information: -Chronic smoker; nicotine replacement therapy -Morbid obesity: BMI-35 kg/m2 -GERD, reported hx of Zenker's diverticulum, chronic dysphagia -Acute macrocytic anemia; monitor H/H -Chronic back pain; on opiates -Anxiety; Ativan PRN Reason for Visit Reason for Visit: Reason For Visit: Worsening SOB Hospital Course Hospital Course: Patient was admitted to the medical surgical floor and started on IV diuresis for treatment of acute CHF exacerbation. She had had an echo done in July 2018 showing an ejection fraction of 65% with grade 1 diastolic dysfunction. She responded very well to diuretics and is clinically compensated currently. She has had intermittent hypertension which she states is her baseline but has otherwise been hemodynamically stable and has not required oxygen since yesterday. She has been ambulating with no dyspnea noted, has been voiding independently without difficulty. She would like to go home today and is counseled on need to continue to be compliant on her medications which will include oral Lasix. She will need to follow-up with her primary care physician within 1 week. She reports having been on oral antihypertensives but due to tendency towards hypotension and was taken off of these. She is unsure what she was on in the past. She has been tolerating oral intake without difficulty. She is counseled on need to seek medical attention immediately should her symptoms recur. On initial assessment in the ER given degree of her symptoms, impression was that she would require inpatient admission but as she has improved much faster than anticipated she will be discharged home today. We discussed need for smoking cessation which patient states she is currently in the process of cutting down on. Discharge Summary: -Patient to follow-up with her primary care physician within 1 week Physical Exam Const: COMMON NORMALS: no apparent distress, oriented x3 and alert GENERAL APPEARANCE: cooperative and comfortable; not in distress NUTRITIONAL APPEARANCE: obese morbidly obese ORIENTATION/CONSCIOUSNESS: Yes awake HENMT: COMMON NORMALS: normocephalic, head/scalp atraumatic, hearing grossly normal bilaterally and moist oral mucous membranes HEAD & SCALP: normocephalic and atraumatic Eye: COMMON NORMALS: PERRL, EOMs intact bilaterally and conjunctivae normal CONJUNCTIVA: Yes conjunctivae normal PUPIL: Yes PERRL Neck/C-Spine: COMMON NORMALS: full ROM GENERAL: Yes normal visual inspection and Yes trachea midline Resp: COMMON NORMALS: normal respiratory effort, no retractions and no use of accessory muscles EFFORT & INSPECTION: Yes able to speak in complete sentences, Yes symmetric chest movement and No tachypneic AUSCULTATION: diminished lung sounds OTHER: -on RA Cardio: COMMON NORMALS: regular rate, regular rhythm, S1 normal heart sound, S2 normal heart sound and no murmurs RATE: regular rate RHYTHM: regular rhythm HEART SOUNDS: S1 normal and S2 normal GI: COMMON NORMALS: normal to inspection, nondistended, normoactive bowel sounds, soft to palpation and non-tender INSPECTION: Yes central obesity PALPATION: Yes soft Extremity: COMMON NORMALS: normal to inspection and full ROM; negative for no pedal edema NARRATIVE EXTREMITY EXAM: -trace pitting edema of bilateral LEs Neuro: COMMON NORMALS: oriented x3, moves all extremities, no focal motor deficits, no sensory deficits noted and gait normal SENSORIUM/ORIENTATION: Yes alert Psych: COMMON NORMALS: mental status grossly normal, thought process normal, cooperative, affect normal and speech normal SPEECH: Yes normal speech THOUGHT PROCESS: normal thought process Skin: COMMON NORMALS: no rashes or lesions noted, no jaundice, no petechiae and no mottling GENERAL SKIN EXAM: no rashes or lesions noted Discharge Data Data Completed and Pending: Completed Studies During Hospitalization Category Date Time Status XR chest 1V carmine ble [id number] Urgent Exams 06/12/19 13:57 Completed Pending at discharge Category Date Time Status Blood Culture Sta t Lab 06/12/19 14:25 Results Sputum Culture an d Gram Stain Stat Lab 06/12/19 13:58 Uncollected Labs from last 24 hours 06/13/19 06/13/19 06/13/19 05:30 05:30 05:30 WBC RBC Hgb Hct MCV MCH MCHC RDW Plt Count MPV Neut % (Auto) Lymph % (Auto) [place] % (Auto) Eos % (Auto) Baso % (Auto) Neut # (Auto) Lymph # (Auto) [place] # (Auto) Eos # (Auto) Baso # (Auto) Nucleated RBC % (a uto) Nucleated RBCs # Sodium 134 L Potassium 4.3 Chloride 97 L Carbon Dioxide 23 Anion Gap 18.3 BUN 16 Creatinine 1.2 H GFR Calculation 45.1 L Glucose 138 H Estimat Average Gl ucose 105 Hemoglobin A1c 5.3 Calculated Osmolal ity 277 L Calcium 9.4 Magnesium 2.6 H TSH 3.08 Urine Color Urine Appearance Urine pH Ur Specific Gravit y Urine Protein Urine Glucose (UA) Urine Ketones Urine Blood Urine Nitrate Urine Bilirubin Prot Sulfosalicyli c Acd Urine Urobilinogen Ur Leukocyte Kaylee ase Urine RBC Urine WBC Ur Squamous Epith Cells Urine Bacteria Influenza Type A A g POC Influenza B Ag 06/13/19 06/12/19 06/12/19 05:30 15:36 14:43 WBC 5.8 RBC 3.33 L Hgb 10.2 L Hct 31.6 L MCV 94.9 MCH 30.6 MCHC 32.3 RDW 15.1 Plt Count 294 MPV 8.7 Neut % (Auto) 78.9 Lymph % (Auto) 16.4 [place] % (Auto) 4.2 Eos % (Auto) 0.0 Baso % (Auto) 0.0 Neut # (Auto) 4.6 Lymph # (Auto) 1.0 [place] # (Auto) 0.2 Eos # (Auto) 0.0 Baso # (Auto) 0.0 Nucleated RBC % (a uto) 0 Nucleated RBCs # 0.0 Sodium Potassium Chloride Carbon Dioxide Anion Gap BUN Creatinine GFR Calculation Glucose Estimat Average Gl ucose Hemoglobin A1c Calculated Osmolal ity Calcium Magnesium TSH Urine Color Straw Urine Appearance Clear Urine pH 8.0 H Ur Specific Gravit y 1.015 Urine Protein Neg Urine Glucose (UA) Norm Urine Ketones Negative Urine Blood Neg Urine Nitrate Negative Urine Bilirubin Neg Prot Sulfosalicyli c Acd Negative Urine Urobilinogen Norm Ur Leukocyte Kaylee ase Negative Urine RBC None Urine WBC 0-4 H Ur Squamous Epith Cells 0-4 H Urine Bacteria Trace Influenza Type A A g Negative POC Influenza B Ag Negative 06/12/19 14:25 WBC 7.9 RBC 3.47 L Hgb 10.5 L Hct 33.4 L MCV 96.3 MCH 30.3 MCHC 31.4 RDW 15.5 H Plt Count 287 MPV 9.1 Neut % (Auto) 74.7 Lymph % (Auto) 15.2 [place] % (Auto) 8.5 Eos % (Auto) 0.9 Baso % (Auto) 0.3 Neut # (Auto) 5.9 Lymph # (Auto) 1.2 [place] # (Auto) 0.7 Eos # (Auto) 0.1 Baso # (Auto) 0.0 Nucleated RBC % (a uto) 0 Nucleated RBCs # 0.0 Sodium Potassium Chloride Carbon Dioxide Anion Gap BUN Creatinine GFR Calculation Glucose Estimat Average Gl ucose Hemoglobin A1c Calculated Osmolal ity Calcium Magnesium TSH Urine Color Urine Appearance Urine pH Ur Specific Gravit y Urine Protein Urine Glucose (UA) Urine Ketones Urine Blood Urine Nitrate Urine Bilirubin Prot Sulfosalicyli c Acd Urine Urobilinogen Ur Leukocyte Kaylee ase Urine RBC Urine WBC Ur Squamous Epith Cells Urine Bacteria Influenza Type A A g POC Influenza B Ag Vitals: Last Vital Signs Temp 98.8 F 06/13/19 11:48 Pulse 84 06/13/19 11:48 Resp 18 06/13/19 11:48 BP 170/76 06/13/19 11:48 Pulse Ox 94 06/13/19 11:48 Discharge Plan Discharge Patient Disposition: Home, Self-Care Condition: Fair Prescriptions: New metoprolol tartrate 25 mg Tablet 25 mg PO BID 30 Days Qty: 60 RF: 0 furosemide 40 mg tablet 40 mg PO DAILY 30 Days Qty: 30 RF: 0 Continued tizanidine 4 mg tablet 2 - 4 mg PO BID RF: 0 hydrocodone-acetaminophen 10-325 mg tablet See Rx Instructions .ROUTE .COMPLEX RF: 0 [place] Original 325-1,916-1,000 mg Tablet, Effervescent 1 tab PO TID PRN (Reason: unknown) RF: 0 aspirin 325 mg Tablet 325 mg PO DAILY PRN (Reason: unknown) RF: 0 pantoprazole [Protonix] 40 mg tablet,delayed release (DR/EC) 40 mg PO DAILY 28 Days RF: 0 Discontinued ranitidine HCl [Zantac] 150 mg tablet 150 mg PO DAILY Qty: 30 RF: 0 Discharge Orders: Discharge Order (Routine); Ordered 06/13/19 Ordered By: Renae Wong Referrals: Kashmir Lebron DO [Family Provider] - 4-7 days (Post hospital discharge follow up. Noted to have acute diastolic CHF exacerbation, on Lasix. ) Discharge Diet: Cardiac Discharge Activity: Resume usual activity Discharge Attestations Time Spent in Discharge Care*: greater than 30 min Specific Discharge Activities: Specific discharge activities: educating patient, discussing with employment case manager/social workers/dc planners and evaluating patient/reviewing data Status at Discharge: Cognitive status at discharge: cognitively intact , Functional status at discharge: independent ambulation Overall status at discharge: patient is back to baseline Quality Metrics Clinical Quality Measures During this hospital stay, did patient experience: None Coding Level of Care Code Acute Security Controls Assessor for Adama Rosado Diagnoses Congestive heart failure I50.33 Heart failure chronicity: acute on chronic Heart failure type: diastolic CKD (chronic kidney disease) stage 2, GFR 60-89 ml/min N18.2
[2019-06-13] MEDS: amlodipine 5 mg Tablet 2.5 MG PO (15:48)
== END 2019-06-13 16:25 | disposition home or self-care (01) | DRG 291 ==
LOC: ER 15:43 → MEDSURG 18:19
PROVIDERS: Admitting Provider Family Medicine; Emergency Provider Family Medicine; Family Provider Internal Medicine; Visit Provider Family Medicine
DX: I13.0 Hypertensive heart and chronic kidney disease with heart failure and stage 1 through stage 4 chronic kidney disease, or unspecified chronic kidney disease (principal); I50.33 Acute on chronic diastolic (congestive) heart failure; N18.2 Chronic kidney disease, stage 2 (mild); E66.01 Morbid (severe) obesity due to excess calories; F41.9 Anxiety disorder, unspecified; M54.9 Dorsalgia, unspecified; G89.29 Other chronic pain; F45.42 Pain disorder with related psychological factors; K21.9 Gastro-esophageal reflux disease without esophagitis; F17.210 Nicotine dependence, cigarettes, uncomplicated; Z68.35 Body mass index [BMI] 35.0-35.9, adult; Z79.84 Long term (current) use of oral hypoglycemic drugs; Z79.83 Long term (current) use of bisphosphonates; Z79.899 Other long term (current) drug therapy
CPT/HCPCS: 12345; 36415; 71045; 80048; 80053; 81001; 83036; 83735; 83880; 84443; 85025; 87040; 87804; 94640; 96372; 96374; 96375; 99283; J1650; J1940; J2930

== ENCOUNTER 2020-05-20 13:26 | Emergency (ER) | payer MEDICARE, MEDICAID, SELFPAY ==
[2020-05-20] VITALS (7 sets, daily range): BP systolic 88–110; BP diastolic 55–64; PULSE 69–88; RESP 15–20; TEMP 36.6; O2SAT 96–99; BMI 28.5
--- NOTE | 2020-05-20 15:15 | XRR_ITS ---
PROCEDURE INFORMATION: Exam: XR Chest Exam date and time: 05/20/2020 3:21 PM Age: 64 years old Clinical indication: Cough and dyspnea; Additional info: Dyspnea/cough TECHNIQUE: Imaging protocol: XR of the chest Views: 1 view. Total images: 1 COMPARISON: CR XR chest 1V portable [id number] 06/12/2019 2:50 PM FINDINGS: Lungs: No visible active interstitial or alveolar airspace disease. Pleural spaces: Unremarkable. No pleural effusion. No pneumothorax. Heart/Mediastinum: Cardiac structures and configuration with mild arteriosclerosis. Bones/joints: Unremarkable for age. XR/XR chest 1V portable [id number] IMPRESSION: Nonacute.
--- NOTE | 2020-05-20 15:18 | W.ED.GENADLT ---
Documented by User: Nic Wolfe DO 05/24/20 06:58 HPI - General Adult General: Chief complaint: Weakness Stated complaint: NAUSEA, HEART PALPITATIONS Time Seen by Provider: 05/20/20 14:59 History of Present Illness: HPI narrative: 64-year-old female presents emergency room with complaint of generally not feeling well week difficulty swallowing. She has had this intermittently for the last year she has had trouble with some anchors diverticulum as well. No fever sweats or chills. Her primary complaint is feeling weak sores in the mouth. She a lot of reflux as well was thought to be due to her congestive heart failure primary care doctor and started on Zofran and Protonix for this. she is still taking her lasi but has not been taking her metorpolol per the daughter. Onset (ago): day(s) Associated symptoms: Reports decreased appetite, weakness and other (dysphagia); Deny chest pain, confusion, cough, diaphoresis, dyspnea, fevers/chills, headache(s), malaise, nausea, rash, palpitations, seizures, short of breath, syncope or vomiting Treatments prior to arrival: none Review of Systems Const: Denies: malaise or diaphoresis ENMT: Denies: ear or mastoid pain, nasal discharge or nasal congestion Card: Denies: chest pain, palpitations or syncope Resp: Denies: dyspnea GI: Denies: nausea or vomiting : Denies: flank pain, difficulty voiding, dysuria, urinary frequency or urinary urgency Skin/Breast: Denies: rash Neuro: Denies: headache(s) or confusion PFS ED PFSH: Medical History CKD (chronic kidney disease) stage 2, GFR 60-89 ml/min -baseline Cr wnl -monitor renal function with diuresis History of TIA (transient ischemic attack) HTN (hypertension) Surgical History H/O: hysterectomy History of cholecystectomy Family History Mother CAD (coronary artery disease) Social History Smoking and tobacco status: current every day smoker cigarettes Packs smoked per day: 1 Years cigarettes smoked: 40 Alcohol intake: never Lives independently: Yes Physical Exam Const: GENERAL APPEARANCE: cooperative and comfortable ORIENTATION/CONSCIOUSNESS: Yes awake, Yes oriented to person, Yes oriented to place and Yes oriented to time HENMT: COMMON NORMALS: normocephalic, atraumatic and hearing grossly normal bilaterally HEAD & SCALP: normocephalic and atraumatic Eye: COMMON NORMALS: Equal, round and reactive pupils present, EOMs intact bilaterally, conjunctivae normal and no scleral icterus CONJUNCTIVA: Yes conjunctivae normal PUPIL: Yes Equal, round and reactive pupils present Neck/C-Spine: COMMON NORMALS: no JVD Resp: COMMON NORMALS: normal respiratory effort, No retractions, No use of accessory muscles and clear to auscultation bilaterally AUSCULTATION: clear to auscultation bilaterally Cardio: COMMON NORMALS: no JVD, regular rate, regular rhythm and No murmurs present (Cardio) RATE: regular rate RHYTHM: regular rhythm GI: COMMON NORMALS: Soft to palpation and No hepatosplenomegaly present AUSCULTATION: Yes normoactive bowel sounds PALPATION: Yes Soft to palpation, No Tenderness to palpation present (GI), No Guarding due to palpation present (GI) and Yes No hepatosplenomegaly present Neuro: SENSORIUM/ORIENTATION: Yes oriented to person, Yes oriented to place and Yes oriented to time Course Vital Signs: Vital signs: Vital Signs Temperature 97.9 F 05/20/20 13:44 Pulse Rate 76 05/20/20 20:11 Respiratory Rate 18 05/20/20 20:11 Blood Pressure 102/64 05/20/20 20:11 Pulse Oximetry 98 05/20/20 20:11 MDM - General Adult MDM Narrative: Medical decision making narrative: Patient states she is feeling much better. Her blood pressures been low but she does have a MAP of greater than 65. We had discussed going home with her after getting magnesium and potassium supplements. Her daughter came in and was quite concerned reevaluate her and her going to head CT as well as a CT of the neck and give her 500 cc bolus. Reviewed with her that her hemoglobin hematocrit were fine her BUN and creatinine were in the normal ranges her BUN is actually low there is no sign of any dehydration. Care turned over to Dr. Lemus at change of shift. Lab Data: Labs: Lab Results 05/20/20 05/20/20 05/20/20 Range/Units 15:10 15:10 15:55 WBC Cancelled 11.6 H Corrected WBC Cancelled RBC Cancelled 3.66 L Hgb Cancelled 11.7 Hct Cancelled 35.5 L MCV Cancelled 97.0 MCH Cancelled 32.0 MCHC Cancelled 33.0 RDW Cancelled 15.7 H Plt Count Cancelled 291 MPV Cancelled 9.6 Gran % Cancelled Neut % (Auto) Cancelled 63.3 Lymph % (Auto) Cancelled 28.6 [place] % (Auto) Cancelled 7.2 Eos % (Auto) Cancelled 0.4 Baso % (Auto) Cancelled 0.3 Neut # (Auto) Cancelled 7.35 Lymph # (Auto) Cancelled 3.3 [place] # (Auto) Cancelled 0.8 Eos # (Auto) Cancelled 0.1 Baso # (Auto) Cancelled 0.0 Absolute Gran (aut o) Cancelled Nucleated RBC % (a uto) Cancelled 0 Nucleated RBCs # Cancelled 0.0 Sodium 136 (136-145) mmol/L Potassium 3.1 L (3.5-5.1) mmol/L Chloride 89 L (98-107) mmol/L Carbon Dioxide 30 H (22-29) mmol/L Anion Gap 20.1 H (5-19) BUN 10 (8-23) mg/dL Creatinine 1.2 H (0.5-0.9) mg/dL GFR Calculation 44.9 L (90-130) mL/min Glucose 91 (65-115) mg/dL Calculated Osmolal ity 281 L (285-295) mOsm/k g Calcium 7.9 L (8.5-10.5) mg/dL Magnesium 1.4 L (1.7-2.3) mg/dL Total Bilirubin 0.6 (0.15-1.2) mg/dL AST 38 H (0-32) U/L ALT 15 (0-33) U/L Alkaline Phosphata se 110 H (35-105) IU/L Creatine Kinase 87 (26-192) U/L NT-Pro-B Natriuret Pep 1125 H (0-125) pg/mL Total Protein 6.4 L (6.6-8.7) g/dL Albumin 2.8 L (3.5-5.2) g/dL Globulin 3.6 (1.3-4.6) g/dL Lipase 5 L (13-60) U/L Urine Color (Yellow) Urine Appearance (CLEAR) Urine pH (5-7) Ur Specific Gravit y (1.005-1.030) Urine Protein (Negative) Urine Glucose (UA) (Normal) Urine Ketones (Negative) Urine Blood (Negative) Urine Nitrate (Negative) Urine Bilirubin (Negative) Urine Urobilinogen (Negative) mg/dL Ur Leukocyte Kaylee ase (Negative) Urine RBC (0-2) /hpf Urine WBC (0-5) /hpf Ur Squamous Epith Cells (0-5) /hpf Amorphous Sediment Urine Bacteria (NONE) /hpf Hyaline Casts /lpf Urine Mucus /hpf 05/20/20 Range/Units 16:40 WBC Corrected WBC RBC Hgb Hct MCV MCH MCHC RDW Plt Count MPV Gran % Neut % (Auto) Lymph % (Auto) [place] % (Auto) Eos % (Auto) Baso % (Auto) Neut # (Auto) Lymph # (Auto) [place] # (Auto) Eos # (Auto) Baso # (Auto) Absolute Gran (aut o) Nucleated RBC % (a uto) Nucleated RBCs # Sodium (136-145) mmol/L Potassium (3.5-5.1) mmol/L Chloride (98-107) mmol/L Carbon Dioxide (22-29) mmol/L Anion Gap (5-19) BUN (8-23) mg/dL Creatinine (0.5-0.9) mg/dL GFR Calculation (90-130) mL/min Glucose (65-115) mg/dL Calculated Osmolal ity (285-295) mOsm/k g Calcium (8.5-10.5) mg/dL Magnesium (1.7-2.3) mg/dL Total Bilirubin (0.15-1.2) mg/dL AST (0-32) U/L ALT (0-33) U/L Alkaline Phosphata se (35-105) IU/L Creatine Kinase (26-192) U/L NT-Pro-B Natriuret Pep (0-125) pg/mL Total Protein (6.6-8.7) g/dL Albumin (3.5-5.2) g/dL Globulin (1.3-4.6) g/dL Lipase (13-60) U/L Urine Color Dark yellow (Yellow) Urine Appearance Sl hazy (CLEAR) Urine pH 5 (5-7) Ur Specific Gravit y 1.020 (1.005-1.030) Urine Protein Neg (Negative) Urine Glucose (UA) Norm (Normal) Urine Ketones Negative (Negative) Urine Blood Neg (Negative) Urine Nitrate Negative (Negative) Urine Bilirubin 1+ H (Negative) Urine Urobilinogen 4 H (Negative) mg/dL Ur Leukocyte Kaylee ase Negative (Negative) Urine RBC None (0-2) /hpf Urine WBC 0-4 H (0-5) /hpf Ur Squamous Epith Cells 0-4 H (0-5) /hpf Amorphous Sediment Not Reportable Urine Bacteria 1+ H (NONE) /hpf Hyaline Casts 5-10 H /lpf Urine Mucus 4+ /hpf Discharge Plan Discharge Patient Disposition: Home Clinical Impression: CHF (congestive heart failure), Hypokalemia, Hypomagnesemia, Zenker diverticulum Condition: Stable Prescriptions: New nystatin 100,000 unit/mL suspension 4 ml buccal QID 7 Days Qty: 112 RF: 0 No Action furosemide 40 mg tablet 40 mg PO DAILY RF: 0 ondansetron HCl 4 mg tablet 4 mg PO Q6H PRN (Reason: Nausea And Vomiting) RF: 0 pantoprazole 40 mg tablet,delayed release (DR/EC) 40 mg PO BID@08,16 RF: 0 Benadryl 25 mg Capsule 50 - 75 mg PO BEDTIME RF: 0 metoprolol succinate 25 mg tablet extended release 24 hr 25 mg PO DAILY PRN (Reason: HASNT TAKEN IN 7-10 DAYS- PT STATES DOENST NEED IT) RF: 0 ProAir HFA 90 mcg/actuation Hfa Aerosol Inhaler 2 puff INHALATION QID PRN (Reason: Shortness Of Breath) RF: 0 potassium gluconate 595 mg (99 mg) Tablet 595 mg PO DAILY PRN (Reason: UNKNOWN) RF: 0 Acidophilus Probiotic 100 million cell-10 mg Capsule 1 cap PO TID RF: 0 Narcan 4 mg/actuation spray,non-aerosol See Rx Instructions .ROUTE .COMPLEX RF: 0 tizanidine 4 mg tablet 2 - 4 mg PO BID RF: 0 hydrocodone-acetaminophen 10-325 mg tablet See Rx Instructions .ROUTE .COMPLEX RF: 0 Sola-Valentines Original 325-1,916-1,000 mg Tablet, Effervescent 1 tab PO PRN RF: 0 aspirin 325 mg Tablet 325 mg PO BEDTIME RF: 0 Discharge Orders: Discharge ED (Routine); Ordered 05/20/20 Ordered By: Geni Lemus Referrals: Kenrick العراقي MD [Physician] - 1-3 days Kashmir Lebron DO [Primary Care Provider] - Discharge Diet: Advance as tolerated Discharge Activity: Resume usual activity Patient Instructions: Weakness (ED) Coding Level of Care Code ED Track Inspector for Chg Fwd Exam Detailed Documented by User: Geni Lemus MD 05/20/20 20:25 HPI - General Adult General: Chief complaint: Weakness Stated complaint: NAUSEA, HEART PALPITATIONS Time Seen by Provider: 05/20/20 14:59 PFSH ED PFSH: Medical History CKD (chronic kidney disease) stage 2, GFR 60-89 ml/min -baseline Cr wnl -monitor renal function with diuresis History of TIA (transient ischemic attack) HTN (hypertension) Surgical History H/O: hysterectomy History of cholecystectomy Family History Mother CAD (coronary artery disease) Social History Smoking and tobacco status: current every day smoker cigarettes Packs smoked per day: 1 Years cigarettes smoked: 40 Alcohol intake: never Lives independently: Yes Course Vital Signs: Vital signs: Vital Signs Temperature 97.9 F 05/20/20 13:44 Pulse Rate 76 05/20/20 20:11 Respiratory Rate 18 05/20/20 20:11 Blood Pressure 102/64 05/20/20 20:11 Pulse Oximetry 98 05/20/20 20:11 MDM - General Adult MDM Narrative: Medical decision making narrative: Patient presents here with difficulty swallowing likely from her chronic Zenker's diverticulum. Patient otherwise is well-appearing here. I did inform her of her stenosis seen on her CT as well. We will get her follow-up with ENT. I did offer her admission but she states she feels improved and would like to go home. Her vital signs here are normal and she is stable for discharge. Lab Data: Labs: Lab Results 05/20/20 05/20/20 05/20/20 Range/Units 15:10 15:10 15:55 WBC Cancelled 11.6 H Corrected WBC Cancelled RBC Cancelled 3.66 L Hgb Cancelled 11.7 Hct Cancelled 35.5 L MCV Cancelled 97.0 MCH Cancelled 32.0 MCHC Cancelled 33.0 RDW Cancelled 15.7 H Plt Count Cancelled 291 MPV Cancelled 9.6 Gran % Cancelled Neut % (Auto) Cancelled 63.3 Lymph % (Auto) Cancelled 28.6 [place] % (Auto) Cancelled 7.2 Eos % (Auto) Cancelled 0.4 Baso % (Auto) Cancelled 0.3 Neut # (Auto) Cancelled 7.35 Lymph # (Auto) Cancelled 3.3 [place] # (Auto) Cancelled 0.8 Eos # (Auto) Cancelled 0.1 Baso # (Auto) Cancelled 0.0 Absolute Gran (aut o) Cancelled Nucleated RBC % (a uto) Cancelled 0 Nucleated RBCs # Cancelled 0.0 Sodium 136 (136-145) mmol/L Potassium 3.1 L (3.5-5.1) mmol/L Chloride 89 L (98-107) mmol/L Carbon Dioxide 30 H (22-29) mmol/L Anion Gap 20.1 H (5-19) BUN 10 (8-23) mg/dL Creatinine 1.2 H (0.5-0.9) mg/dL GFR Calculation 44.9 L (90-130) mL/min Glucose 91 (65-115) mg/dL Calculated Osmolal ity 281 L (285-295) mOsm/k g Calcium 7.9 L (8.5-10.5) mg/dL Magnesium 1.4 L (1.7-2.3) mg/dL Total Bilirubin 0.6 (0.15-1.2) mg/dL AST 38 H (0-32) U/L ALT 15 (0-33) U/L Alkaline Phosphata se 110 H (35-105) IU/L Creatine Kinase 87 (26-192) U/L NT-Pro-B Natriuret Pep 1125 H (0-125) pg/mL Total Protein 6.4 L (6.6-8.7) g/dL Albumin 2.8 L (3.5-5.2) g/dL Globulin 3.6 (1.3-4.6) g/dL Lipase 5 L (13-60) U/L Urine Color (Yellow) Urine Appearance (CLEAR) Urine pH (5-7) Ur Specific Gravit y (1.005-1.030) Urine Protein (Negative) Urine Glucose (UA) (Normal) Urine Ketones (Negative) Urine Blood (Negative) Urine Nitrate (Negative) Urine Bilirubin (Negative) Urine Urobilinogen (Negative) mg/dL Ur Leukocyte Kaylee ase (Negative) Urine RBC (0-2) /hpf Urine WBC (0-5) /hpf Ur Squamous Epith Cells (0-5) /hpf Amorphous Sediment Urine Bacteria (NONE) /hpf Hyaline Casts /lpf Urine Mucus /hpf 05/20/20 Range/Units 16:40 WBC Corrected WBC RBC Hgb Hct MCV MCH MCHC RDW Plt Count MPV Gran % Neut % (Auto) Lymph % (Auto) [place] % (Auto) Eos % (Auto) Baso % (Auto) Neut # (Auto) Lymph # (Auto) [place] # (Auto) Eos # (Auto) Baso # (Auto) Absolute Gran (aut o) Nucleated RBC % (a uto) Nucleated RBCs # Sodium (136-145) mmol/L Potassium (3.5-5.1) mmol/L Chloride (98-107) mmol/L Carbon Dioxide (22-29) mmol/L Anion Gap (5-19) BUN (8-23) mg/dL Creatinine (0.5-0.9) mg/dL GFR Calculation (90-130) mL/min Glucose (65-115) mg/dL Calculated Osmolal ity (285-295) mOsm/k g Calcium (8.5-10.5) mg/dL Magnesium (1.7-2.3) mg/dL Total Bilirubin (0.15-1.2) mg/dL AST (0-32) U/L ALT (0-33) U/L Alkaline Phosphata se (35-105) IU/L Creatine Kinase (26-192) U/L NT-Pro-B Natriuret Pep (0-125) pg/mL Total Protein (6.6-8.7) g/dL Albumin (3.5-5.2) g/dL Globulin (1.3-4.6) g/dL Lipase (13-60) U/L Urine Color Dark yellow (Yellow) Urine Appearance Sl hazy (CLEAR) Urine pH 5 (5-7) Ur Specific Gravit y 1.020 (1.005-1.030) Urine Protein Neg (Negative) Urine Glucose (UA) Norm (Normal) Urine Ketones Negative (Negative) Urine Blood Neg (Negative) Urine Nitrate Negative (Negative) Urine Bilirubin 1+ H (Negative) Urine Urobilinogen 4 H (Negative) mg/dL Ur Leukocyte Kaylee ase Negative (Negative) Urine RBC None (0-2) /hpf Urine WBC 0-4 H (0-5) /hpf Ur Squamous Epith Cells 0-4 H (0-5) /hpf Amorphous Sediment Not Reportable Urine Bacteria 1+ H (NONE) /hpf Hyaline Casts 5-10 H /lpf Urine Mucus 4+ /hpf Imaging Data^: CT Head: Radiologist's impression: [address] [place], [place] [address], [place] [address] CT Scan Report Signed Patient: Marlee Vanessa Unit #: [id number] : 1955 Age/Sex: 64 / F ADM Date: 05/20/20 Loc: ER Room/Bed: Attending Dr: Ordering Provider/Ordering MD: Nic Wolfe DO Date of Service: 05/20/20 Procedure(s): CT head wo con* [id number] Accession Number(s): [id number] Report Number: [id number] PROCEDURE INFORMATION: Exam: CT Head Without Contrast Exam date and time: 05/20/2020 6:31 PM Age: 64 years old Clinical indication: Dizziness; Additional info: Dysphagia TECHNIQUE: Imaging protocol: Computed tomography of the head without contrast. Total images: 187 Radiation optimization: All CT scans at this facility use at least one of these dose optimization techniques: automated exposure control; mA and/or kV adjustment per patient size (includes targeted exams where dose is matched to clinical indication); or iterative reconstruction. COMPARISON: CT head wo con* [id number] 08/02/2018 1:02 PM RADIATION DOSE METRICS: Total DLP (mGy-cm): 743.55 FINDINGS: Brain: No evidence of active or acute intracranial pathologic process, hemorrhage, or trauma. Mild small vessel ischemic disease with senile periventricular leukomalacia. No mass effect. No midline shift. No significant interval change. Cerebral ventricles: No ventriculomegaly. Bones/joints: Unremarkable. No acute fracture. Paranasal sinuses: Visualized sinuses are unremarkable. No fluid levels. Mastoid air cells: Visualized mastoid air cells are well aerated. Soft tissues: Unremarkable. CT/CT head wo con* [id number] IMPRESSION: No evidence of active or acute intracranial pathologic process, hemorrhage, or trauma. Other CT: Radiologist's impression: [facility] [address] [address] Scan Report Signed with Addenda Patient: Marlee Vanessa Unit #: [id number] : 1955 Age/Sex: 64 / F ADM Date: 05/20/20 Loc: ER Room/Bed: Attending Dr: Ordering Provider/Ordering MD: Nic Wolfe DO Date of Service: 05/20/20 Procedure(s): CT neck w con* [id number] Accession Number(s): [id number] Report Number: [id number]/CT neck w con* [id number] THIS REPORT CONTAINS FINDINGS THAT MAY BE CRITICAL TO PATIENT CARE. The findings were verbally communicated via telephone conference with Dr. Lemus at 7:15 PM HYDROMETEOROLOGICAL TECHNICIAN on 05/20/2020. The findings were acknowledged and understood. Radiation Dose CTDIVOL = (mGy): DLP = 645.23 (mGy-cm) Addendum Dictated By: Manpreet Gonzalez Addendum Signed By: Manpreet Gonzalez Signed Date/Time: 05/20/20 192 6 Addendum Cosigned By: PROCEDURE INFORMATION: Exam: CT Neck With Contrast Exam date and time: 05/20/2020 6:31 PM Age: 64 years old Clinical indication: Dysphagia / difficulty swallowing; Additional info: Dyspahgia/hx zenkers diverticuli TECHNIQUE: Imaging protocol: Computed tomography images of the neck with intravenous contrast. Total images: 344 Radiation optimization: All CT scans at this facility use at least one of these dose optimization techniques: automated exposure control; mA and/or kV adjustment per patient size (includes targeted exams where dose is matched to clinical indication); or iterative reconstruction. Contrast material: VISI 320; Contrast volume: 95 ml; Contrast route: INTRAVENOUS (IV); COMPARISON: US ROR carotid duplex BI 08/04/2018 10:30 AM RADIATION DOSE METRICS: Total DLP (mGy-cm): 645.23 FINDINGS: Nasopharynx: Unremarkable. Oropharynx: Unremarkable. No significant tonsillar enlargement. Hypopharynx: Unremarkable. Larynx: Unremarkable. Normal epiglottis. Retropharyngeal space: Unremarkable. Submandibular/Parotid glands: Normal. Glands are normal in size. Thyroid: Normal. No enlarged or calcified nodules. Lymph nodes: Marginally prominent middle mediastinal lymph nodes within the field of view. Doubt of clinical significance. Trachea: Visualized trachea is unremarkable. Lungs: Calcified granulomas of antecedent disease. No visible active interstitial or alveolar airspace disease within the field of view. Bones/joints: No visible acute osseous abnormality. Degenerative disease and degenerative disc disease C5/C6 with spondylosis deformans. Facet arthrosis. Mild scoliotic curvature. Osteopenia. Vasculature: Examination reveals a short-segment critical stenosis of between 80 and 90% proximal right internal carotid artery. Bovine aortic arch which is a normal anatomical variant. Soft tissues: Unremarkable for age. No significant soft tissue swelling. Other findings: Large Zenker's diverticulum measuring approximately 35 mm x 23 mm x 33 mm. The diverticulum contains ingested material as well very dense material potential barium. CT/CT neck w con* [id number] IMPRESSION: 1. Large Zenker's diverticulum measuring approximately 35 mm x 23 mm x 33 mm. The diverticulum contains ingested material as well very dense material potential barium. 2. Examination reveals a short-segment critical stenosis of between 80 and 90% proximal right internal carotid artery. Discharge Plan Discharge Patient Disposition: Home Clinical Impression: CHF (congestive heart failure), Hypokalemia, Hypomagnesemia, Zenker diverticulum Condition: Stable Prescriptions: New nystatin 100,000 unit/mL suspension 4 ml buccal QID 7 Days Qty: 112 RF: 0 No Action furosemide 40 mg tablet 40 mg PO DAILY RF: 0 ondansetron HCl 4 mg tablet 4 mg PO Q6H PRN (Reason: Nausea And Vomiting) RF: 0 pantoprazole 40 mg tablet,delayed release (DR/EC) 40 mg PO BID@08,16 RF: 0 Benadryl 25 mg Capsule 50 - 75 mg PO BEDTIME RF: 0 metoprolol succinate 25 mg tablet extended release 24 hr 25 mg PO DAILY PRN (Reason: HASNT TAKEN IN 7-10 DAYS- PT STATES DOENST NEED IT) RF: 0 ProAir HFA 90 mcg/actuation Hfa Aerosol Inhaler 2 puff INHALATION QID PRN (Reason: Shortness Of Breath) RF: 0 potassium gluconate 595 mg (99 mg) Tablet 595 mg PO DAILY PRN (Reason: UNKNOWN) RF: 0 Acidophilus Probiotic 100 million cell-10 mg Capsule 1 cap PO TID RF: 0 Narcan 4 mg/actuation spray,non-aerosol See Rx Instructions .ROUTE .COMPLEX RF: 0 tizanidine 4 mg tablet 2 - 4 mg PO BID RF: 0 hydrocodone-acetaminophen 10-325 mg tablet See Rx Instructions .ROUTE .COMPLEX RF: 0 Sola-Valentines Original 325-1,916-1,000 mg Tablet, Effervescent 1 tab PO PRN RF: 0 aspirin 325 mg Tablet 325 mg PO BEDTIME RF: 0 Discharge Orders: Discharge ED (Routine); Ordered 05/20/20 Ordered By: Geni Lemus Referrals: Kenrick العراقي MD [Physician] - 1-3 days Kashmir Lebron DO [Primary Care Provider] - Discharge Diet: Advance as tolerated Discharge Activity: Resume usual activity Patient Instructions: Weakness (ED) Coding Level of Care Code ED Track Inspector for g Fwd Exam Detailed
[2020-05-20 15:53] LABS: Alanine Aminotransferase 15 U/L (0-33); Albumin Level 2.8 g/dL (3.5-5.2); Alkaline Phosphatase 110 IU/L (35-105); Blood Urea Nitrogen 10 mg/dL (8-23); Calcium 7.9 mg/dL (8.5-10.5); Carbon Dioxide 30 mmol/L (22-29); Chloride 89 mmol/L (98-107); Creatine Phosphokinase 87 U/L (26-192); Globulin 3.6 g/dL (1.3-4.6); Glomerular Filtration Rate 44.9 mL/min (90-130); Glucose 91 mg/dL (65-115); Lipase 5 U/L (13-60); Magnesium 1.4 mg/dL (1.7-2.3); NT Pro B Type Natriuretic Pept 1125 pg/mL (0-125); Osmolality Calculated 281 mOsm/kg (285-295); Sodium 136 mmol/L (136-145); Total Bilirubin 0.6 mg/dL (0.15-1.2); Total Protein 6.4 g/dL (6.6-8.7)
[2020-05-20 16:00] LABS: Basophils % 0.3 %; Eosinophils # 0.1 10^3/uL (0.0-0.8); Eosinophils % 0.4 %; Hematocrit 35.5 % (37.0-47.0); Hemoglobin 11.7 g/dL (11.5-15.3); Lymphocytes # 3.3 10^3/uL (0.8-4.8); Lymphocytes % 28.6 %; Mean Platelet Volume 9.6 fL (7.4-10.4); Monocytes # 0.8 10^3/uL (0.2-0.9); Monocytes % 7.2 %; Neutrophils # 7.35 10^3/uL (1.8-7.7); Neutrophils % 63.3 %; Nucleated Red Blood Cells % 0 %; Platelet Count 291 10^3/cmm (130-400); Red Blood Count 3.66 10^6/uL (4.1-5.3); Red Cell Distribution Width 15.7 % (12.1-15.1); White Blood Count 11.6 10^3/uL (4.0-10.0)
[2020-05-20 16:05] LABS: Anion Gap 20.1 (5-19); Aspartate Amino Transferase 38 U/L (0-32); Potassium 3.1 mmol/L (3.5-5.1)
[2020-05-20 17:14] LABS: Add Urine Microscopic? YES; Bilirubin Urine 1+ (Negative); Blood Urine Neg (Negative); Glucose Urine UA Norm (Normal); Ketones Urine Negative (Negative); Leukocyte Esterase Urine Negative (Negative); Nitrate Urine Negative (Negative); Protein Urine Neg (Negative); Urine Appearance SL Hazy (CLEAR); Urine Color Dark Yellow (Yellow); Urobilinogen Urine 4 mg/dL (Negative); pH Urine 5 (5-7)
[2020-05-20 17:20] LABS: Add Urine Culture? No; Bacteria Urine 1+ /hpf; Mucus Urine 4+ /hpf; Squamous Epithelial Cell Urine 0-4 /hpf (0-5); WBC Urine 0-4 /hpf (0-5)
[2020-05-20] MEDS: magnesium sulfate premix 2 GM/50 ML PIGGYBACK IV (17:48)
--- NOTE | 2020-05-20 17:54 | CTR_ITS ---
PROCEDURE INFORMATION: Exam: CT Neck With Contrast Exam date and time: 05/20/2020 6:31 PM Age: 64 years old Clinical indication: Dysphagia / difficulty swallowing; Additional info: Dyspahgia/hx zenkers diverticuli TECHNIQUE: Imaging protocol: Computed tomography images of the neck with intravenous contrast. Total images: 344 Radiation optimization: All CT scans at this facility use at least one of these dose optimization techniques: automated exposure control; mA and/or kV adjustment per patient size (includes targeted exams where dose is matched to clinical indication); or iterative reconstruction. Contrast material: VISI 320; Contrast volume: 95 ml; Contrast route: INTRAVENOUS (IV); COMPARISON: US ROR carotid duplex BI 08/04/2018 10:30 AM RADIATION DOSE METRICS: Total DLP (mGy-cm): 645.23 FINDINGS: Nasopharynx: Unremarkable. Oropharynx: Unremarkable. No significant tonsillar enlargement. Hypopharynx: Unremarkable. Larynx: Unremarkable. Normal epiglottis. Retropharyngeal space: Unremarkable. Submandibular/Parotid glands: Normal. Glands are normal in size. Thyroid: Normal. No enlarged or calcified nodules. Lymph nodes: Marginally prominent middle mediastinal lymph nodes within the field of view. Doubt of clinical significance. Trachea: Visualized trachea is unremarkable. Lungs: Calcified granulomas of antecedent disease. No visible active interstitial or alveolar airspace disease within the field of view. Bones/joints: No visible acute osseous abnormality. Degenerative disease and degenerative disc disease C5/C6 with spondylosis deformans. Facet arthrosis. Mild scoliotic curvature. Osteopenia. Vasculature: Examination reveals a short-segment critical stenosis of between 80 and 90% proximal right internal carotid artery. Bovine aortic arch which is a normal anatomical variant. Soft tissues: Unremarkable for age. No significant soft tissue swelling. Other findings: Large Zenker's diverticulum measuring approximately 35 mm x 23 mm x 33 mm. The diverticulum contains ingested material as well very dense material potential barium. CT/CT neck w con* [id number] IMPRESSION: 1. Large Zenker's diverticulum measuring approximately 35 mm x 23 mm x 33 mm. The diverticulum contains ingested material as well very dense material potential barium. 2. Examination reveals a short-segment critical stenosis of between 80 and 90% proximal right internal carotid artery. Radiation Dose CTDIVOL = (mGy): DLP = 645.23 (mGy-cm)
--- NOTE | 2020-05-20 17:54 | CTR_ITS ---
PROCEDURE INFORMATION: Exam: CT Head Without Contrast Exam date and time: 05/20/2020 6:31 PM Age: 64 years old Clinical indication: Dizziness; Additional info: Dysphagia TECHNIQUE: Imaging protocol: Computed tomography of the head without contrast. Total images: 187 Radiation optimization: All CT scans at this facility use at least one of these dose optimization techniques: automated exposure control; mA and/or kV adjustment per patient size (includes targeted exams where dose is matched to clinical indication); or iterative reconstruction. COMPARISON: CT head wo con* [id number] 08/02/2018 1:02 PM RADIATION DOSE METRICS: Total DLP (mGy-cm): 743.55 FINDINGS: Brain: No evidence of active or acute intracranial pathologic process, hemorrhage, or trauma. Mild small vessel ischemic disease with senile periventricular leukomalacia. No mass effect. No midline shift. No significant interval change. Cerebral ventricles: No ventriculomegaly. Bones/joints: Unremarkable. No acute fracture. Paranasal sinuses: Visualized sinuses are unremarkable. No fluid levels. Mastoid air cells: Visualized mastoid air cells are well aerated. Soft tissues: Unremarkable. CT/CT head wo con* [id number] IMPRESSION: No evidence of active or acute intracranial pathologic process, hemorrhage, or trauma. Radiation Dose CTDIVOL = (mGy): DLP = 743.55 (mGy-cm)
[2020-05-20] MEDS: potassium chloride oral liq 20 mEq/15 mL UDC 40 MEQ PO (18:04)
[2020-05-20] MEDS: iodixanol 320 mg/mL 100mL Btl IV (18:34)
[2020-05-20] MEDS: sodium chloride 0.9% 500 ML 999 ML IV (19:10)
--- NOTE | 2020-05-21 12:10 | DCPLANNER ---
care transition manager had message to schedule a follow up appointment for patient with ENT at [facility]. Case manger emailed patients information to both Julissa and Sonia at [facility]. Patients information will be printed and reviewed. Clinic will call patient with appointment information.
--- NOTE | 2020-05-22 12:45 | DCPLANNER ---
Patient has a follow up appointment scheduled for Saturday, May 23, 2020 at 1:[address] العراقي. Clinic will call patient with appointment information.
--- NOTE | 2020-06-05 14:14 | DCPLANNER ---
Patient had a follow up appointment scheduled for 05.23.[address] Jaramillo at [facility] E[facility] clinic - patient did attend appointment.
== END 2020-05-20 20:13 | disposition home or self-care (01) ==
PROVIDERS: Family Medicine; Emergency Provider Emergency Medicine; PCP Internal Medicine
DX: I12.9 Hypertensive chronic kidney disease with stage 1 through stage 4 chronic kidney disease, or unspecified chronic kidney disease (principal); N18.2 Chronic kidney disease, stage 2 (mild); Z86.73 Personal history of transient ischemic attack (TIA), and cerebral infarction without residual deficits; F17.210 Nicotine dependence, cigarettes, uncomplicated
CPT/HCPCS: 70450; 70491; 71045; 80053; 81001; 82550; 83690; 83735; 83880; 85025; 87210; 96365; 99284; J3475; J7040; Q9967

== ENCOUNTER → 2020-05-27 14:34 | Outpatient (BNVA) | payer MEDICARE, MEDICAID, SELFPAY | PROVIDERS: PCP Internal Medicine; Visit Provider Internal Medicine Cardiovascular Disease | DX: I11.0 Hypertensive heart disease with heart failure; I50.32 Chronic diastolic (congestive) heart failure; E86.0 Dehydration; F17.200 Nicotine dependence, unspecified, uncomplicated | CPT/HCPCS: 80048 ==

== ENCOUNTER 2020-05-29 18:29 | Inpatient (IN) | payer MEDICARE, MEDICAID, SELFPAY ==
[2020-05-29 18:36] VITALS: BP 98/58; PULSE 64; RESP 16; TEMP 36.6; O2SAT 94; BMI 28.5
--- NOTE | 2020-05-29 19:27 | PC.NURSE ---
Nurse at bedside obtaining IV and labs. Patient blood glucose is 112, nurse was informed.
[2020-05-29 19:29] LABS: Glucose Point of Care 112 mg/dL (70-110)
[2020-05-29 19:36] VITALS: BP 108/52; PULSE 64; RESP 22; O2SAT 96
--- NOTE | 2020-05-29 19:43 | PC.PHAR ---
PT STATES SHE TAKES CARE OF HER OWN MEDICATIONS-PT STATES DR.KHAN PEARSON LASIX AND METOPROLOL -PT STATES SHE HAD ALREADY STOP TAKING THE METOPROLOL BEFORE THE DR PEARSON-PT STATES SHE HASNT STARTED THE RX WRITTEN ON 05/28/20 FOR HER KCL 40MEQ ON DAY ONE AND 20 MEQ ON DAY 2 REPEAT LABS IN 4 DAYS-PT STATES SHE TOOK 2 TABS OF THE KCL OTC ON 05/28/20
--- NOTE | 2020-05-29 19:53 | W.ED.GENADLT ---
HPI - General Adult General: Chief complaint: General Medical Stated complaint: weakness Time Seen by Provider: 05/29/20 19:29 Source: patient and old records reviewed Mode of arrival: ambulatory History of Present Illness: HPI narrative: 64-year-old female with progressive weakness, difficulty ambulating, and decreased p.o. intake over the past 2 weeks. She has had a Zenker's diverticulum for many years, but recently it has gotten worse and is interfering with her ability to eat and drink. She says she is only able to drink small amounts of liquids at a time, is not able to eat solids or even soft foods. She went to see ENT last week, and was referred to [facility] in [place] for further evaluation and treatment. She was seen by her tax adjuster 2 days ago for orthostatic dizziness and presyncopal symptoms. She was found to be hypotensive, so her diuretic and beta-luana were discontinued. She still has dizziness and weakness on standing, but it is slightly improved. She describes paresthesias in her legs and hands, inability to stand on her legs due to generalized weakness. No bowel or bladder incontinence. No nausea, vomiting or diarrhea. No fever. No cough or shortness of breath. No chest pain. occasionally gets sharp pains in her epigastrium and right upper quadrant. Onset (ago): day(s) Associated symptoms: Reports malaise; Deny chest pain, dyspnea, nausea, rash or vomiting Review of Systems General: Reports: 10 or more systems reviewed and unremarkable except in HPI and below Const: Reports: fatigue and malaise; Denies: fever(s) or chills Eyes: Denies: change in vision, blurry vision or blind spots ENMT: Denies: hoarseness Card: Denies: chest pain, palpitations or irregular heart rhythm Resp: Denies: dyspnea, productive cough, non-productive cough, wheezing or stridor GI: Reports: abdominal pain and bloating; Denies: nausea, vomiting, hematemesis or constipation : Denies: difficulty voiding, dysuria or urinary frequency Musc: Reports: back pain Skin/Breast: Denies: rash or pruritus [facility] ED PFSH: Medical History CKD (chronic kidney disease) stage 2, GFR 60-89 ml/min -baseline Cr wnl -monitor renal function with diuresis History of TIA (transient ischemic attack) HTN (hypertension) Surgical History H/O: hysterectomy History of cholecystectomy Family History (Updated 05/30/20 @ 00:34 by Jairon Scott MD) Mother CAD (coronary artery disease) Mother Diabetes Father Diabetes Social History Smoking and tobacco status: current every day smoker cigarettes Packs smoked per day: 1 Years cigarettes smoked: 40 Alcohol intake: never Lives independently: Yes Physical Exam Const: COMMON NORMALS: patient oriented x3 GENERAL APPEARANCE: cooperative, lethargic, ill appearing and frail appearing; not in distress and not diaphoretic ORIENTATION/CONSCIOUSNESS: Yes lethargic HENMT: COMMON NORMALS: normocephalic and atraumatic HEAD & SCALP: normocephalic and atraumatic MOUTH: moist mucous membranes abnormal Details: cracked and parched Eye: COMMON NORMALS: Equal, round and reactive pupils present, EOMs intact bilaterally, conjunctivae normal and no scleral icterus ALIGNMENT: Yes alignment normal PERIORBITAL: periorbital findings normal CONJUNCTIVA: Yes conjunctivae normal PUPIL: Yes Equal, round and reactive pupils present Neck/C-Spine: COMMON NORMALS: full ROM and no lymphadenopathy Chest: COMMONS NORMALS: normal inspection of the chest and normal palpation of entire chest wall CHEST: Yes abnormal inspection of the chest Resp: COMMON NORMALS: normal respiratory effort, No use of accessory muscles and clear to auscultation bilaterally EFFORT & INSPECTION: Yes able to speak in complete sentences, No tachypneic and No respiratory distress AUSCULTATION: clear to auscultation bilaterally Cardio: COMMON NORMALS: regular rate, regular rhythm, S1 normal heart sound present and S2 normal heart sound present RATE: regular rate RHYTHM: regular rhythm HEART SOUNDS: S1 normal heart sound present and S2 normal heart sound present GI: COMMON NORMALS: Soft to palpation PALPATION: Yes Soft to palpation and Yes Tenderness to palpation present (GI) Details: LUQ and RUQ Neuro: COMMON NORMALS: patient oriented x3 SENSORIUM/ORIENTATION: Yes lethargic SPEECH: speech normal GAIT: Yes Unable to assess gait MOTOR EXAM: Other motor observations present (generalized weakness ) Skin: COMMON NORMALS: no rashes or lesions noted and no wounds GENERAL SKIN EXAM: no rashes or lesions noted and turgor decreased Course Vital Signs: Vital signs: Vital Signs Temperature 97.9 F 05/29/20 18:36 Pulse Rate 80 05/30/20 00:30 Respiratory Rate 23 H 05/30/20 00:30 Blood Pressure 101/56 05/30/20 00:30 Pulse Oximetry 100 05/30/20 00:30 MDM - General Adult MDM Narrative: Medical decision making narrative: 64-year-old female with Zenker's diverticulum, acutely dehydrated and malnourished due to difficulty eating and drinking over the past few weeks. Has been referred to Dr. Carrillo at [facility] in [place], waiting for outpatient appointment. She is lethargic and dehydrated, with generalized weakness. No focal neurologic deficits. Critical hypokalemia,K 2.4. EKG; sinus rhythm, rate 64, NJ 158, QRS 90, QTc 48. Flattened T waves, positive U waves in V1-V5, consistent with severe hypokalemia. Mag normal. IV fluid resuscitation, IV and p.o. potassium replacement. Blood pressure responded to fluid bolus. Spoke with Dr. Scott, ENT at [facility] in [place]. He recommended fluid and electrolyte resuscitation, and follow-up in clinic with Dr. Carrillo at the [facility] to schedule repair. Emergent repair is rarely indicated in the situations, he did not recommend placing an NG tube unless there was a particular need for enteric route. Lactic acid 5.5, with diffuse abdominal tenderness: CT abdomen pelvis; no acute process. CT chest to visualize the entire diverticulum and evaluate for compression of the adjacent esophagus: UA - acute urinary tract infection; Rocephin 1 g IV started. Discussed the case with , hospitalist, who will come see the patient in the ED. The patient has had a referral placed by her PCP to Dr. Carrillo, and can call [phone] first thing tomorrow morning to request next available appointment. Repeat EKG at 0026 ; partial resolution of T wave abnormalities and V1 - V5 compared to initial EKG. Differential Diagnosis: Differential Diagnosis: SHAILESH, hypokalemia, sepsis, myopathy, myositis, starvation, dehydration, ARF Medical Records: Attestation: I reviewed the patient's medical records. Lab Data: Labs: Lab Results 05/29/20 05/29/20 05/29/20 Range/Units 19:26 21:12 21:12 WBC 8.4 (4.0-10.0) 10^3/ uL RBC 3.39 L (4.1-5.3) 10^6/u L Hgb 11.0 L (11.5-15.3) g/dL Hct 33.1 L (37.0-47.0) % MCV 97.6 (81-99) fL MCH 32.4 (28.0-34.0) pg MCHC 33.2 (30.0-36.0) g/dL RDW 16.0 H (12.1-15.1) % Plt Count 267 (130-400) 10^3/c mm MPV 9.7 (7.4-10.4) fL Neut % (Auto) 60.5 % Lymph % (Auto) 27.3 % [place] % (Auto) 11.2 % Eos % (Auto) 0.6 % Baso % (Auto) 0.2 % Neut # (Auto) 5.09 (1.8-7.7) 10^3/u L Lymph # (Auto) 2.3 (0.8-4.8) 10^3/u L [place] # (Auto) 0.9 (0.2-0.9) 10^3/u L Eos # (Auto) 0.1 (0.0-0.8) 10^3/u L Baso # (Auto) 0.0 (0.0-0.1) 10^3/u L Nucleated RBC % (a uto) 0.2 % Nucleated RBCs # 0.0 /100WBC PT 16.40 H (12.1-14.9) SECO NDS INR 1.28 H (0.8-1.2) Sodium (136-145) mmol/L Potassium (3.5-5.1) mmol/L Chloride (98-107) mmol/L Carbon Dioxide (22-29) mmol/L Anion Gap (5-19) BUN (8-23) mg/dL Creatinine (0.5-0.9) mg/dL GFR Calculation (90-130) mL/min Glucose (65-115) mg/dL POC Glucose 112 H (70-110) mg/dL Calculated Osmolal ity (285-295) mOsm/k g Lactate (0.5-2.2) mmol/L Calcium (8.5-10.5) mg/dL Magnesium (1.7-2.3) mg/dL Total Bilirubin (0.15-1.2) mg/dL AST (0-32) U/L ALT (0-33) U/L Alkaline Phosphata se (35-105) IU/L Creatine Kinase (26-192) U/L C-Reactive Protein (0.0-4.9) mg/L Total Protein (6.6-8.7) g/dL Albumin (3.5-5.2) g/dL Globulin (1.3-4.6) g/dL Urine Color (Yellow) Urine Appearance (CLEAR) Urine pH (5-7) Ur Specific Gravit y (1.005-1.030) Urine Protein (Negative) Urine Glucose (UA) (Normal) Urine Ketones (Negative) Urine Blood (Negative) Urine Nitrate (Negative) Urine Bilirubin (Negative) Urine Urobilinogen (Negative) mg/dL Ur Leukocyte Kaylee ase (Negative) Urine RBC (0-2) /hpf Urine WBC (0-5) /hpf Ur Squamous Epith Cells (0-5) /hpf Amorphous Sediment Urine Bacteria (NONE) /hpf 05/29/20 05/29/20 05/29/20 Range/Units 21:12 21:12 23:00 WBC (4.0-10.0) 10^3/ uL RBC (4.1-5.3) 10^6/u L Hgb (11.5-15.3) g/dL Hct (37.0-47.0) % MCV (81-99) fL MCH (28.0-34.0) pg MCHC (30.0-36.0) g/dL RDW (12.1-15.1) % Plt Count (130-400) 10^3/c mm MPV (7.4-10.4) fL Neut % (Auto) % Lymph % (Auto) % [place] % (Auto) % Eos % (Auto) % Baso % (Auto) % Neut # (Auto) (1.8-7.7) 10^3/u L Lymph # (Auto) (0.8-4.8) 10^3/u L [place] # (Auto) (0.2-0.9) 10^3/u L Eos # (Auto) (0.0-0.8) 10^3/u L Baso # (Auto) (0.0-0.1) 10^3/u L Nucleated RBC % (a uto) % Nucleated RBCs # /100WBC PT (12.1-14.9) SECO NDS INR (0.8-1.2) Sodium 133 L (136-145) mmol/L Potassium 2.4 L* (3.5-5.1) mmol/L Chloride 95 L (98-107) mmol/L Carbon Dioxide 21 L (22-29) mmol/L Anion Gap 19.4 H (5-19) BUN 18 (8-23) mg/dL Creatinine 1.5 H (0.5-0.9) mg/dL GFR Calculation 34.7 L (90-130) mL/min Glucose 82 (65-115) mg/dL POC Glucose (70-110) mg/dL Calculated Osmolal ity 277 L (285-295) mOsm/k g Lactate 5.5 H* (0.5-2.2) mmol/L Calcium 7.8 L (8.5-10.5) mg/dL Magnesium 1.9 (1.7-2.3) mg/dL Total Bilirubin 0.6 (0.15-1.2) mg/dL AST 34 H (0-32) U/L ALT 17 (0-33) U/L Alkaline Phosphata se 104 (35-105) IU/L Creatine Kinase 73 (26-192) U/L C-Reactive Protein 0.3 (0.0-4.9) mg/L Total Protein 6.5 L (6.6-8.7) g/dL Albumin 2.6 L (3.5-5.2) g/dL Globulin 3.9 (1.3-4.6) g/dL Urine Color Yellow (Yellow) Urine Appearance Clear (CLEAR) Urine pH 5 (5-7) Ur Specific Gravit y 1.000 L (1.005-1.030) Urine Protein Neg (Negative) Urine Glucose (UA) Norm (Normal) Urine Ketones Negative (Negative) Urine Blood Neg (Negative) Urine Nitrate Positive H (Negative) Urine Bilirubin Neg (Negative) Urine Urobilinogen Norm (Negative) mg/dL Ur Leukocyte Kaylee ase 2+ H (Negative) Urine RBC 0-4 H (0-2) /hpf Urine WBC 15-25 H (0-5) /hpf Ur Squamous Epith Cells 0-4 H (0-5) /hpf Amorphous Sediment Not Reportable Urine Bacteria 2+ H (NONE) /hpf Discharge Plan Discharge Patient Disposition: Admitted As Inpatient Clinical Impression: Hypokalemia, inadequate intake, Acute dehydration, Malnutrition compromising bodily function, Muscle weakness (generalized), Acute UTI, Decreased oral intake, Zenker's (hypopharyngeal) diverticulum Condition: Stable Coding Level of Care Code ED Middleware Solutions Architect for Chg Fwd Exam Comprehensive
[2020-05-29 20:00] VITALS: BP 91/45; PULSE 71; RESP 17; O2SAT 99
[2020-05-29 21:17] LABS: Basophils % 0.2 %; Eosinophils # 0.1 10^3/uL (0.0-0.8); Eosinophils % 0.6 %; Hematocrit 33.1 % (37.0-47.0); Lymphocytes # 2.3 10^3/uL (0.8-4.8); Lymphocytes % 27.3 %; Mean Corpuscular HGB Conc 33.2 g/dL (30.0-36.0); Mean Corpuscular Hemoglobin 32.4 pg (28.0-34.0); Mean Corpuscular Volume 97.6 fL (81-99); Mean Platelet Volume 9.7 fL (7.4-10.4); Monocytes # 0.9 10^3/uL (0.2-0.9); Monocytes % 11.2 %; Neutrophils # 5.09 10^3/uL (1.8-7.7); Neutrophils % 60.5 %; Nucleated Red Blood Cells % 0.2 %; Platelet Count 267 10^3/cmm (130-400); Red Blood Count 3.39 10^6/uL (4.1-5.3); White Blood Count 8.4 10^3/uL (4.0-10.0)
[2020-05-29] MEDS: lactated ringers 1,000 ML 999 ML IV (21:20)
[2020-05-29 21:38] LABS: INR 1.28 (0.8-1.2)
[2020-05-29 21:47] LABS: Alanine Aminotransferase 17 U/L (0-33); Albumin Level 2.6 g/dL (3.5-5.2); Alkaline Phosphatase 104 IU/L (35-105); Anion Gap 19.4 (5-19); Aspartate Amino Transferase 34 U/L (0-32); Blood Urea Nitrogen 18 mg/dL (8-23); Calcium 7.8 mg/dL (8.5-10.5); Carbon Dioxide 21 mmol/L (22-29); Chloride 95 mmol/L (98-107); Creatine Phosphokinase 73 U/L (26-192); Globulin 3.9 g/dL (1.3-4.6); Glomerular Filtration Rate 34.7 mL/min (90-130); Glucose 82 mg/dL (65-115); Magnesium 1.9 mg/dL (1.7-2.3); Osmolality Calculated 277 mOsm/kg (285-295); Sodium 133 mmol/L (136-145); Total Bilirubin 0.6 mg/dL (0.15-1.2); Total Protein 6.5 g/dL (6.6-8.7)
[2020-05-29 22:00] VITALS: BP 128/78; PULSE 77; RESP 25; O2SAT 94
[2020-05-29 22:02] LABS: Lactate (Lactic Acid level) 5.5 mmol/L (0.5-2.2)
[2020-05-29 22:03] LABS: Potassium 2.4 mmol/L (3.5-5.1)
--- NOTE | 2020-05-29 22:14 | CTR_ITS ---
PROCEDURE INFORMATION: Exam: CT Abdomen And Pelvis With Contrast Exam date and time: 05/29/2020 10:20 PM Age: 64 years old Clinical indication: Abdominal tenderness and bloating and nausea and vomiting; Abdominal pain; Prior surgery; Surgery type: Hyst, gb, appy, tubal; Additional info: Abdominal pain, lactic acidemia, TECHNIQUE: Imaging protocol: Computed tomography of the abdomen and pelvis with contrast. Radiation optimization: All CT scans at this facility use at least one of these dose optimization techniques: automated exposure control; mA and/or kV adjustment per patient size (includes targeted exams where dose is matched to clinical indication); or iterative reconstruction. Contrast material: VISI 320; Contrast volume: 95 ml; Contrast route: INTRAVENOUS (IV); COMPARISON: CT abdomen pelvis w con* [id number] 06/05/2019 4:48 PM RADIATION DOSE METRICS: Total DLP (mGy-cm): 1573.39 FINDINGS: Lungs: The visualized lung bases are clear. Mediastinal space: Small hiatal hernia. Liver: Hepatomegaly and significant hepatic steatosis. Gallbladder and bile ducts: Status post cholecystectomy. No biliary dilatation. Pancreas: No evidence of mass. No ductal dilation. Spleen: No splenomegaly or mass. Adrenal glands: Normal. Kidneys and ureters: A 2 mm inferior left renal stone. No hydronephrosis. Stomach and bowel: Few sigmoid colon diverticula. No signs of acute diverticulitis. No focal bowel wall thickening or mass. Appendix: Prior appendectomy noted. Intraperitoneal space: No free air. No free fluid or evidence of abscess. Vasculature: No concerning abnormalities. Lymph nodes: No lymphadenopathy. Urinary bladder: Normal CT appearance. Reproductive: Status post hysterectomy. Bones/joints: No acute abnormality. Soft tissues: Within normal limits. CT/CT abdomen pelvis w con* [id number] IMPRESSION: 1. Small hiatal hernia. 2. Small left renal stone. 3. Mild diverticulosis. Radiation Dose CTDIVOL = (mGy): DLP = 1573.39 (mGy-cm)
[2020-05-29] MEDS: iodixanol 320 mg/mL 100mL Btl IV (22:27)
[2020-05-29] MEDS: lidocaine 1% 5 ML in potassium chloride premix 100 ML 25 ML IV (22:39)
[2020-05-29] MEDS: potassium chloride oral liq 20 mEq/15 mL UDC 40 MEQ PO (22:39)
[2020-05-29] MEDS: sodium chloride 0.9% 1,000 ML 999 ML IV (22:39)
--- NOTE | 2020-05-29 22:39 | CTR_ITS ---
PROCEDURE INFORMATION: Exam: CT Chest Without Contrast; Diagnostic Exam date and time: 05/29/2020 10:42 PM Age: 64 years old Clinical indication: Tachypnea; Prior surgery; Surgery type: Gb; Patient HX: Tachycardic; Additional info: Zenker's diverticulum, dysphagia, esophageal obstruction TECHNIQUE: Imaging protocol: Diagnostic computed tomography of the chest without contrast. Radiation optimization: All CT scans at this facility use at least one of these dose optimization techniques: automated exposure control; mA and/or kV adjustment per patient size (includes targeted exams where dose is matched to clinical indication); or iterative reconstruction. COMPARISON: CR XR chest 1V portable [id number] 05/20/2020 3:24 PM RADIATION DOSE METRICS: Total DLP (mGy-cm): 789.61 FINDINGS: Lungs: No acute pulmonary abnormalities. Trace scattered scarring. Pleural spaces: Unremarkable. No pneumothorax. No pleural effusion. Heart: Unremarkable. No cardiomegaly. No pericardial effusion. Aorta: Scattered calcifications. No aortic aneurysm. Lymph nodes: Unremarkable. No enlarged lymph nodes. Liver: Significant hepatic steatosis. Bones/joints: Unremarkable. No acute fracture. Soft tissues: Unremarkable. CT/CT chest con [id number] IMPRESSION: No acute abnormalities identified. Radiation Dose CTDIVOL = (mGy): DLP = 789.61 (mGy-cm)
[2020-05-29 22:52] LABS: C Reactive Protein 0.3 mg/L (0.0-4.9)
[2020-05-29 23:00] VITALS: BP 120/53; PULSE 73; RESP 16; O2SAT 96
[2020-05-29 23:20] LABS: Bilirubin Urine Neg (Negative); Blood Urine Neg (Negative); Glucose Urine UA Norm (Normal); Ketones Urine Negative (Negative); Leukocyte Esterase Urine 2+ (Negative); Nitrate Urine Positive (Negative); Protein Urine Neg (Negative); Urine Appearance Clear (CLEAR); Urine Color Yellow (Yellow); Urobilinogen Urine Norm (Negative); pH Urine 5 (5-7)
[2020-05-29 23:21] LABS: Add Urine Microscopic? YES; Bacteria Urine 2+ /hpf; RBC Urine 0-4 /hpf (0-2); Squamous Epithelial Cell Urine 0-4 /hpf (0-5); WBC Urine 15-25 /hpf (0-5)
[2020-05-29 23:22] LABS: Add Urine Culture? Yes
--- NOTE | 2020-05-29 23:59 | ECG_ITS ---
[facility] Test Date: 2020-05-30 Pat Name: Marlee Vanessa Department: Room: 250 Gender: Female Band Maker: : 1955 Requested By: Tiff Du Order Number: [id number] Reading MD: HATTIE BOND Measurements Intervals [place] Rate: 74 P: 54 PA: 158 QRS: 63 QRSD: 89 T: 66 QT: 416 QTc: 462 Interpretive Statements SINUS RHYTHM NONSPECIFIC T-WAVE ABNORMALITY Compared to ECG 05/29/2020 19:19:07 Possible ischemia no longer present T-wave abnormality still present Electronically Signed On 05-30-2020 19:24:49 DUCT MAKER by HATTIE BOND [email or web address]
[2020-05-30] VITALS (11 sets, daily range): BP systolic 92–121; BP diastolic 54–66; PULSE 68–116; RESP 16–23; TEMP 36.4–37.1; O2SAT 91–100
[2020-05-30] MEDS: cefTRIAXone 1,000 MG in sodium chloride 0.9% (plus) 50 ML 100 MG IV (00:23)
[2020-05-30] MEDS: nicotine 14 mg Patch 1 PATCH TRANSDERMA (00:23)
--- NOTE | 2020-05-30 00:30 | PM.HP ---
Providers/Chief Complaint Primary Care Provider: Kashmir Lebron DO Chief Complaint: STROKE LIKE SYMP. History of Present Illness Marlee Vanessa is a 64 year old female with a past medical history of CVA, TIA, CKD, hypertension, Zenker's diverticulum, diastolic CHF, who presents to [facility] due to complaints of generalized weakness, inability to ambulate due to weakness, lightheadedness, dizziness, malaise, nausea, vomiting. Patient tells me that she is recently been diagnosed with a Zenker's diverticulum, she has been having nausea, vomiting, halitosis, for the last year. Her appetite has been decreasing, she has been having increased generalized fatigue, weakness, dizziness when changing position. She tells me that in the last 2 weeks, she has become wheelchair dependent, no focal neurologic deficits, no facial droop, she tells me that her vision is blurry, her daughter at one point thought she might of had slurring of her speech but it is just because she has a daughter dry mouth she feels, she tells me that she feels weak all over, but primarily in her legs, she actually has to stay in a hotel currently as her house is not wheelchair accessible. She saw ENT, they recommended assessment at [facility] for surgical evaluation for Zenker's diverticulum. Patient appointment has not been made yet. Patient has had a few ER visits for nausea, vomiting, dehydration, has received fluids. She denies any dysuria, any hematuria. No history of nephrolithiasis. Review of Systems Const: Reports: fatigue and malaise; Denies: fever(s) or chills Eyes: Reports: blurry vision; Denies: change in vision ENMT: Denies: nasal congestion Card: Reports: lightheadedness and pre-syncope; Denies: chest pain, palpitations, edema or syncope Resp: Denies: dyspnea, productive cough, non-productive cough or wheezing GI: Reports: nausea and vomiting; Denies: abdominal pain, hematemesis, diarrhea, constipation, hematochezia or melena : Denies: flank pain, dysuria or urinary frequency Musc: Denies: neck pain or back pain Skin/Breast: Denies: rash Neuro: Reports: dizziness; Denies: headache(s) or vertigo Psych: Denies: anxiety or depression Endo: Denies: polyuria or polydipsia Medications/Allergies Home Medications Medication Instructions Recorded Confirmed Last Taken Type Sola-Hurst Original 1 tab PO PRN 06/05/19 05/29/20 06/05/19 History aspirin 325 mg PO BEDTIME 06/05/19 05/29/20 05/28/20 History hydrocodone-acetaminophen See Rx Instructions .ROUTE .COMPLEX 06/05/19 05/29/20 05/29/20 18:00 History tizanidine 2 - 4 mg PO BID 06/05/19 05/29/20 05/20/20 History acidophilus-pectin, citrus 1 cap PO TID 05/20/20 05/29/20 05/27/20 History [Acidophilus Probiotic] albuterol sulfate [ProAir HFA] 2 puff INHALATION QID PRN 05/20/20 05/29/20 Unknown History diphenhydramine HCl [Benadryl] 50 - 75 mg PO BEDTIME 05/20/20 05/29/20 05/28/20 History naloxone [Narcan] See Rx Instructions .ROUTE .COMPLEX 05/20/20 05/29/20 Unknown History ondansetron HCl 4 mg PO Q6H PRN 05/20/20 05/29/20 05/29/20 16:00 History pantoprazole 40 mg PO BID@08,16 05/20/20 05/29/20 05/29/20 History nystatin See Rx Instructions .ROUTE .COMPLEX 05/29/20 05/29/20 05/29/20 16:00 History potassium chloride See Rx Instructions .ROUTE .COMPLEX 05/29/20 05/29/20 05/28/20 History Allergies Allergy/AdvReac Type Severity Reaction Status Date / Time Penicillins Allergy ALGY-Hives Verified 05/29/20 19:43 PFSH Acute PFSH: Medical History CKD (chronic kidney disease) stage 2, GFR 60-89 ml/min -baseline Cr wnl -monitor renal function with diuresis History of TIA (transient ischemic attack) HTN (hypertension) Surgical History H/O: hysterectomy History of cholecystectomy Family History (Updated 05/30/20 @ 00:34 by Jairon Scott MD) Mother CAD (coronary artery disease) Mother Diabetes Father Diabetes Social History Smoking and tobacco status: current every day smoker cigarettes Packs smoked per day: 1 Years cigarettes smoked: 40 Alcohol intake: never Lives independently: Yes Vitals/I&O/Wt Last Vital Signs Temp 97.9 F 05/29/20 18:36 Pulse 73 05/29/20 23:00 Resp 16 05/29/20 23:00 BP 120/53 05/29/20 23:00 Pulse Ox 96 05/29/20 23:00 05/29/20 05/29/20 05/30/20 14:59 22:59 06:59 Intake Total 1000 / 1000 Balance 1000 / 1000 Weight last 48 hrs Weight 73.028 kg Physical Exam Const: COMMON NORMALS: no acute distress and patient oriented x3 GENERAL APPEARANCE: cooperative and comfortable HENMT: COMMON NORMALS: normocephalic HEAD & SCALP: normocephalic Eye: COMMON NORMALS: Equal, round and reactive pupils present and EOMs intact bilaterally GENERAL EYE: appearance normal, both eyes and all related structures PUPIL: Yes Equal, round and reactive pupils present Neck/C-Spine: COMMON NORMALS: full ROM, no lymphadenopathy, no JVD and Thyroid normal THYROID: Thyroid normal Lymph: LYMPHATIC: no lymphadenopathy noted Resp: COMMON NORMALS: normal respiratory effort, No retractions, No use of accessory muscles and clear to auscultation bilaterally AUSCULTATION: clear to auscultation bilaterally Cardio: COMMON NORMALS: no JVD, regular rate, regular rhythm, S1 normal heart sound present, S2 normal heart sound present, No gallops present (Cardio), No clicks present (Cardio) and No murmurs present (Cardio) RATE: regular rate RHYTHM: regular rhythm HEART SOUNDS: S1 normal heart sound present and S2 normal heart sound present GI: COMMON NORMALS: Normal to inspection, nondistended, normoactive bowel sounds present, Soft to palpation, non-tender and No hepatosplenomegaly present PALPATION: Yes Soft to palpation and Yes No hepatosplenomegaly present Extremity: COMMON NORMALS: normal to inspection, full ROM and no pedal edema Neuro: COMMON NORMALS: patient oriented x3, CN's II-XII intact bilaterally, moves all extremities and no focal motor deficits Psych: COMMON NORMALS: mental status grossly normal, Normal thought process present and cooperative THOUGHT PROCESS: Normal thought process present Data : 05/29/20 21:12 05/29/20 21:12 A&P Assessment and plan (1) Dehydration: -Likely secondary to Zenker's diverticulum -With hyponatremia, hypokalemia, hypochloremia, lactic acidosis -Has received 80 mEq of potassium -Continue IV fluids -Encourage p.o. intake, clear liquid diet for now -She has an appointment for ENT evaluation at [facility], they were contacted by ER physician, no urgent need for surgery as rarely is urgent surgery required Status: Acute (2) Stenosis of right internal carotid artery: -Patient has 80 to 90% stenosis of short segment proximal right internal carotid artery -She has had CVAs in the past, TIAs in the past -Is on aspirin, start statin -We will order a carotid artery ultrasound -She will require surgical evaluation for right internal carotid, before proceeding to surgery for the Zenker's diverticulum, would discuss with cardiothoracic surgery tomorrow morning Status: Acute (3) HTN (hypertension): Status: Acute (4) Hypokalemia: Status: Acute (5) Elevated lactic acid level: Secondary to dehydration Status: Acute (6) Acute kidney injury: Receiving IV hydration, monitor creatinine levels Status: Acute (7) Cystitis: Has evidence of UTI, CT of the abdomen does show a 2 mm left kidney stone without obstructive uropathy, no hydronephrosis, continue Rocephin follow urine cultures, blood cultures Status: Acute Attestations Medical Necessity Statement*: Patient requires hospitalization, outpatient with observation, for severe dehydration secondary Zenker's diverticulum, with hyponatremia, hypokalemia, hypochloremia, lactic acidosis, cystitis, right internal carotid artery stenosis Coding Level of Care Code Acute Order Entry Technician for [facility] Fwd Diagnoses Dehydration E86.0 Stenosis of right internal carotid artery I65.21 HTN (hypertension) I10 Hypokalemia E87.6 Elevated lactic acid level R79.89 Acute kidney injury N17.9 Cystitis N30.90
--- NOTE | 2020-05-30 01:32 | USCV_ITS ---
Otf Marlee Age: 64 Gender: F : 1955 Exam Date: 05/30/2020 06:11 Ordering Phys: Jairon Scott MD Technologist: Dipti Pedersen [place] [facility] [place]: CAROTID STENOSIS Risk Factors: Previous Vascular Surgery: Right Brachial BP: / Left Brachial BP: / Right Left Velocity (cm/s) Spectral Plaque Velocity (cm/s) Spectral Plaque Syst/Diast Broadening Syst/Diast Broadening 119.10/22.10 Prox CCA 170.30/ 27.80 104.70/15.40 Mid CCA 125.80/ 23.30 92.60/ 13.20 Distal CCA 95.90 / 15.40 71.50/ 17.90 Prox ICA 67.30 / 19.20 111.70/31.60 Mid ICA 69.50 / 14.30 118.30/30.20 Distal ICA 127.20/ 27.50 180.20 ECA 123.60 0.99 ICA/CCA 0.75 Antegrade Vertebral Antegrade 69.50/ 13.20 cm/s 84.80/ 16.00 cm/s Tri Subclavian Tri 237.0 282.0 0 0 CONCLUSIONS Right ICA stenosis <50%. Left ICA stenosis <50%. Normal antegrade Doppler flow noted in the right vertebral artery. Normal antegrade Doppler flow noted in the left vertebral artery. Dangelo Donis MD (Electronically Signed) Final Date: 30 May 2020 08:51 S
[2020-05-30] MEDS: sodium chlor 0.9% + KCl 20 mEq 20 MEQ/1,000 ML BAG 100 MEQ IV (02:11)
[2020-05-30] MEDS: HYDROcodone-acetaminophen 10-325 mg Tablet PO ×3 (02:11→20:12)
[2020-05-30] MEDS: atorvastatin 40 mg Tablet 80 MG PO (02:12)
[2020-05-30] MEDS: enoxaparin 40 mg/0.4 mL Syringe SUBCUT (02:12)
[2020-05-30 02:30] LABS: INR 1.32 (0.8-1.2)
[2020-05-30 02:45] LABS: Thyroid Stimulating Hormone 16.11 uIU/mL (0.27-4.20)
[2020-05-30] MEDS: ondansetron 2 mg/ML SDV 2 mL 4 MG IVP ×2 (08:08→16:54)
[2020-05-30] MEDS: pantoprazole DR 40 mg Tablet PO (08:08)
[2020-05-30] MEDS: magnesium oxide 400 mg tablet PO ×2 (08:08→17:22)
[2020-05-30] MEDS: potassium chloride ER 20 mEq Tablet PO (08:08)
[2020-05-30] MEDS: sodium chlor 0.9% + KCl 40 mEq 40 MEQ/1,000 ML BAG 75 MEQ IV (12:42)
--- NOTE | 2020-05-30 13:41 | PM.PN ---
Subjective Subjective: Interval history: Patient was seen and examined this morning, patient is able to tolerate liquid diet, she is endorsing vomiting and regurgitation of food to solid diet, she has an appointment with ENT [facility] She has history of TIA CVA 2 days carotid Doppler showing less than 50% stenosis of ICA bilaterally Vitals/I&O/Wt Last Vital Signs Temp 98.2 F 05/30/20 11:28 Pulse 102 H 05/30/20 11:28 Resp 18 05/30/20 11:28 BP 100/63 05/30/20 11:28 Pulse Ox 100 05/30/20 11:28 05/29/20 05/30/20 05/30/20 22:59 06:59 14:59 Intake Total 1000 / 1000 1155 / 2155 1480 / 1480 Output Total 200 / 200 Balance 1000 / 1000 955 / 1955 1480 / 1480 Weight last 48 hrs Weight 73.028 kg Physical Exam Narrative: EXAM NARRATIVE: Very pleasant elderly female Looks dehydrated Was able to tolerate liquid diet S1, S2 sinus rhythm no murmur appreciated No carotid bruit appreciated No active neurological deficits No abdominal tenderness Lower extremity no edema gangrene ulcer Awake alert oriented x3 GCS 15, No acute respiratory distress audible wheezing or rhonchi Saturating well on room air with normal hemodynamics Normal saline with potassium supplementation running at the bedside Data : 05/29/20 21:12 05/29/20 21:12 Micro: Microbiology 05/30/20 01:52 Blood Culture - Preliminary Blood SPECIMEN COLLECTED 05/30/20 01:52 Blood Culture - Preliminary Blood SPECIMEN COLLECTED A&P Assessment and plan (1) Dehydration: Status: Acute (2) Hypokalemia: Status: Acute (3) Acute kidney injury: Status: Acute (4) Cystitis: Status: Acute (5) Dysphagia: Status: Acute Additional A&P Information Severe dehydration secondary to recurrent vomiting Patient has increased diverticulum Has an appointment with ENT surgeon at [facility] They were notified at the time of admission however did not recommend urgent intervention Currently patient is on IV fluids tolerating liquid diet We will monitor lactic acid hydrate her with IV fluids, Zofran will not be very helpful considering her anatomical cause of regurgitation and vomiting Hypokalemia Potassium repleted currently getting potassium supplemented fluid Magnesium 1.9, repleted Cystitis: Continue ceftriaxone she is afebrile no signs of sepsis Carotid stenosis with history of TIA and CVA I would continue her antiplatelet therapy along statins however carotid Doppler revealed less than 50% stenosis of ICA bilaterally I do not believe she will need any urgent intervention for that at this point Full code Clear liquid diet DVT prophylaxis Heparin If her electrolytes are better tomorrow we will plan her discharge Attestations Medical Necessity Statement*: Currently requiring IV fluids for dehydration and severe electrolyte abnormality planning discharge tomorrow Time Spent in Patient Care: (>than 50% of time spent in counselling and/or direct pt care on unit). 30mins Coding Level of Care Code Acute Aerial Photograph Interpreter for Chg Fwd Diagnoses Dehydration E86.0 Hypokalemia E87.6 Acute kidney injury N17.9 Cystitis N30.90 Dysphagia R13.10
--- NOTE | 2020-05-30 14:19 | PC.CHAP ---
Pastoral Care Encounter/Spiritual Assessment Type of Contact [] Declined customer greeter visit [] Patient/Family/Request visit [] Outpatient visit [] Follow-up visit [] Physician referral [] Code/Alert [xx] Routine visit [] Staff referral [] Actively dying [] Patient sleeping [] Family support [] [] Out of room [] Palliative care [] [] Receiving care in room [] Pre-surgical visit [] Trauma [] Long length of stay [] ICU visit [] Other: Relational/Emotional Strength [xx] Patient feels connected with others/family/visitors/staff [] Distress [] Loneliness/isolation [] Abandonment Spirituality of Patient [xx] Person of [place] [xx] Attends Mormon of their [place] [xx] Believes in Prayer [xx] Reads Bible or Yazdanism materials [] There are Spiritual issues to be addressed Triage Nurse Interventions [xx] Prayer [xx] Active listening [xx] Non-anxious presence [] Spiritual/emotional support [] Crisis/trauma care [] Spiritual counseling [] Bereavement support [] Provided bereavement packet [] Provided Bible/devotional materials [] Provided toy/stuffed animal, coloring book to patient or family member [] Provided Communion [] Anointing/[place] [] Salvation [xx] Completed spiritual assessment [] Other: Impact on Illness or Injury [] Angry [] Fearful [] Anxious [] Often cries [] Exhaustion [] Unable to work [] Unable to attend scientology [] Unable to walk/stand [] Unable to read [] Unable to drive [] Unable to eat/drink [] Unable to sleep [] Unable to be with family [] Patient intubated [] Other: Summary Patient concerned about here grandchildren and how they will respond to patient's debilitation. Triage Nurse prayed accordingly. Patient asked customer greeter to get nurse to stop machine's bussing. Triage Nurse complied. Time spent with patient 5 minutes
[2020-05-30] MEDS: aspirin 325 mg Tablet PO (20:07)
[2020-05-31] VITALS (55 sets, daily range): BP systolic 42–138; BP diastolic 33–87; PULSE 104–160; RESP 18–40; TEMP 36.4–36.6; O2SAT 93–100
[2020-05-31] MEDS: HYDROcodone-acetaminophen 10-325 mg Tablet PO (03:18)
[2020-05-31] MEDS: cefTRIAXone 1,000 MG in sodium chloride 0.9% (plus) 50 ML 100 MG IV (03:19)
[2020-05-31] MEDS: enoxaparin 40 mg/0.4 mL Syringe SUBCUT (03:19)
[2020-05-31] MEDS: ondansetron 2 mg/ML SDV 2 mL 4 MG IVP (03:39)
[2020-05-31] MEDS: LORazepam 2 mg/mL INJ 1 mL 1 MG IVP (04:04)
--- NOTE | 2020-05-31 05:14 | CTR_ITS ---
PROCEDURE INFORMATION: Exam: CT Head Without Contrast Exam date and time: 05/31/2020 5:26 AM Age: 64 years old Clinical indication: Injury or trauma; Fall; Blunt trauma (contusions or hematomas); Consciousness not specified TECHNIQUE: Imaging protocol: Computed tomography of the head without contrast. Radiation optimization: All CT scans at this facility use at least one of these dose optimization techniques: automated exposure control; mA and/or kV adjustment per patient size (includes targeted exams where dose is matched to clinical indication); or iterative reconstruction. COMPARISON: CT head wo con* [id number] 05/20/2020 6:45 PM RADIATION DOSE METRICS: Total DLP (mGy-cm): 808.52 FINDINGS: Brain: There is moderate chronic atrophy. The ventricles and sulci are prominent. There is patchy decreased white matter density indicating chronic small vessel white matter ischemia. No intracranial hemorrhage, edema or other acute abnormalities are seen in the brain. Cerebral ventricles: The ventricles are prominent secondary to chronic atrophy. Bones/joints: Unremarkable. No acute fracture. Paranasal sinuses: Visualized sinuses are unremarkable. No fluid levels. Mastoid air cells: Visualized mastoid air cells are well aerated. Soft tissues: Unremarkable. CT/CT head wo con* [id number] IMPRESSION: No acute intracranial abnormality. Radiation Dose CTDIVOL = (mGy): DLP = 808.52 (mGy-cm)
[2020-05-31 05:24] LABS: Arterial Blood Gas Hematocrit 31.8 % (37-47); Base Excess ABG -24.7 mmol/L (-2.0-2.0); Blood Gas Operator Identificat HARKR; Blood Gas Sample Site Brachial, right; Blood Gas Sample Type Arterial; HCO3 ABG 3.4 mmol/L (22-26); Oxygen Device NC
[2020-05-31] MEDS: lactated ringers 1,000 ML 999 ML IV (05:41)
[2020-05-31] MEDS: sodium bicarbonate 8.4% 1 mEq/mL 50mL Syr 100 MEQ IVP (05:42)
--- NOTE | 2020-05-31 06:03 | ECG_ITS ---
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 Measurements Intervals [place] Rate: 123 P: 47 AL: 126 QRS: 50 QRSD: 89 T: 45 QT: 356 QTc: 511 Interpretive Statements SINUS TACHYCARDIA LOW QRS VOLTAGE IN PRECORDIAL LEADS [QRS DEFLECTION < 1.0 mV IN CHEST LEADS] ABNORMAL RHYTHM ECG Compared to ECG 05/30/2020 00:26:03 Low QRS voltage now present Sinus rhythm no longer present T-wave abnormality no longer present Electronically Signed On 05-31-2020 19:37:02 MAINTENANCE OPERATOR by Barbara Villeda M.D. [id number]
[2020-05-31] MEDS: levothyroxine 100 mcg SDV 50 MCG IVP (06:14)
--- NOTE | 2020-05-31 06:29 | PC.NURSE ---
Received patient from 2nd floor with nurse at bedside. Patient noted to be tachypnic, very drowsy responding to pain and does nod head when name called. Customer Success Specialist to room attempting to draw labs. Dr. Scott to room, notified that axillary temp is 94.7 and warm blankets placed on patient. Blood pressure 109/61, Heart rate 125.
--- NOTE | 2020-05-31 06:40 | PM.EVENT ---
Event Note Event Note: At roughly 4:30 AM this morning, patient was complaining of some shortness of breath, and abdominal pain, nurses thought she might have been anxious, so she was given a milligram of Ativan, subsequently after patient was found on the floor, she was brought back to bed, before all this patient was following commands, alert and oriented, now she does not follow commands, she is spontaneously moving the upper and lower extremities, she is normotensive, she has sinus tachycardia, heart rate in the 120s, her respiratory rate is between 20-30, her temp is 97.9, she is saturating in the high 90s on 2 L, pupils are equal round reactive to light, her IV went bad, and nurses had to obtain 2 IVs, she is fairly restless ABG shows a pH of 7, bicarb, 3, PO2 is 117 on 2 L, patient has evidence of metabolic acidosis, etiology is unclear at this point, nurses multiple times have been try to obtain blood work, but it was difficult, eventually we were able to obtain blood work In the meantime I have given her 2 A of bicarb, started her on LR bolus, she has been moved down to the ICU, I have expanded her antibiotic coverage for Primaxin Etiology is lactic acidosis versus diabetic ketoacidosis, her lactic acid level yesterday was 5.5, presumably secondary to dehydration and UTI and sepsis, her blood sugar on admission was 112, her A1c a year ago was 5.3, her anion gap yesterday was as high as 21.5. Her TSH is 16.1, I have repeated this time, started her on levothyroxine 50 mcg daily, will keep an eye on her repeat TSH CPK and further markers for possible myxedema coma Given her fall, and alteration of mentation, she not on any blood thinners except aspirin, she is being taken down to CT right now I reexamined patient had a roughly 630 in the ICU, she does not follow commands, she is spontaneously moving the upper extremities, moving her head, she does not open her eyes to commands, pupils are equal round reactive to light, she does have mottling of the bilateral lower extremities, bluish discoloration of bilateral lower extremities, heart rates in the 120s sinus tachycardia, blood pressures are 120s over 80s, she is found to be hypothermic, she was placed in restraints as she is very agitated, she is being taken over to CT I have ordered extensive blood work including a troponin series, EKGs, will have EM physician evaluate etiology of her acidosis, currently she possibly could be exhibiting [place] respiration, certainly Ativan could be playing a role in her alteration of mentation, but on her ABG her PO2's were quite high, and PCO2 was was low
--- NOTE | 2020-05-31 06:41 | PC.NURSE ---
Patient complained of abd pain at approximately 0330 PRN hydrocodone administered. Patient laying in bed with increased respirations appearing to anxious and restless. Physician notified of current patient status, 1mg of Ativan IVP ordered. Patient at time of administration of Ativan alert and oriented. Approximately 30 minutes after administration of Ativan, patient found in floor with altered mental status with only a bruise to left hip. Physician contacted, ordered ABG, head CT w/o contrast, abdomen/pelvis CT w/o contrast. Physician to floor to see patient. 1L LR bolus ordered. 2 amps of bicarb x1. Stat ekg. placed patient in 4 point soft restraints per physician order due to patient flailing and not following commands. orders received to transfer patient to ICU report called. Patient transferred to ICU 1 with all personal belonging. Family to be contacted.
[2020-05-31 06:43] LABS: Basophils # 0.1 10^3/uL (0.0-0.1); Basophils % 0.3 %; Hematocrit 33.3 % (37.0-47.0); Hemoglobin 9.9 g/dL (11.5-15.3); Lymphocytes # 1.1 10^3/uL (0.8-4.8); Lymphocytes % 5.7 %; Mean Corpuscular HGB Conc 29.7 g/dL (30.0-36.0); Mean Corpuscular Hemoglobin 33.2 pg (28.0-34.0); Mean Corpuscular Volume 111.7 fL (81-99); Mean Platelet Volume 10.4 fL (7.4-10.4); Monocytes # 1.9 10^3/uL (0.2-0.9); Monocytes % 9.8 %; Neutrophils # 16.36 10^3/uL (1.8-7.7); Neutrophils % 82.8 %; Nucleated Red Blood Cells # 0.2 /100WBC; Nucleated Red Blood Cells % 0.9 %; Platelet Count 316 10^3/cmm (130-400); Red Blood Count 2.98 10^6/uL (4.1-5.3); Red Cell Distribution Width 17.3 % (12.1-15.1); White Blood Count 19.8 10^3/uL (4.0-10.0)
--- NOTE | 2020-05-31 06:47 | XRR_ITS ---
PROCEDURE INFORMATION: Exam: XR Chest Exam date and time: 05/31/2020 8:03 AM Age: 64 years old Clinical indication: Shortness of breath; Additional info: AMS TECHNIQUE: Imaging protocol: XR of the chest Views: 1 view. COMPARISON: CT chest con [id number] 05/29/2020 11:18 PM FINDINGS: Lungs: Unremarkable. No consolidation. Pleural spaces: Unremarkable. No pleural effusion. No pneumothorax. Heart/Mediastinum: The cardiac silhouette is enlarged but unchanged. Bones/joints: Unremarkable. XR/XR chest 1V portable [id number] IMPRESSION: Cardiomegaly. No acute abnormality.
--- NOTE | 2020-05-31 06:49 | USCV_ITS ---
Marlee Vanessa Age: 64 Gender: F : 1955 Exam Date: 05/31/2020 12:41 Ordering Phys: Jairon Scott MD Technologist: Deepa Linder [place] [facility] [place]ication: Sinus tachycardia BP: 116 / 74 HR: 109 Rhythm: Sinus tachycardia Technical Quality: Technically difficult study MEASUREMENTS (Male / Female) Normal Values 2D ECHO LV Diastolic Diameter PLAX 3.3 cm 4.2 - 5.9 / 3.9 - 5.3 cm LV Systolic Diameter PLAX 2.7 cm IVS Diastolic Thickness 1.5 cm 0.6 - 1.0 / 0.6 - 0.9 cm IVS Systolic Thickness 1.3 cm LVPW Diastolic Thickness 1.1 cm 0.6 - 1.0 / 0.6 - 0.9 cm LVPW Systolic Thickness 1.2 cm LV Ejection Fraction 2D Teich 36.1 % M-MODE LV Diastolic Diameter MM 6.8 cm 4.2 - 5.9 / 3.9 - 5.3 cm LV Systolic Diameter MM 4.7 cm LV Ejection Fraction MM Teich 55.9 % IVS Diastolic Thickness MM 1.0 cm 0.6 - 1.0 / 0.6 - 0.9 cm IVS Systolic Thickness MM 1.4 cm LVPW Diastolic Thickness MM 1.1 cm 0.6 - 1.0 / 0.6 - 0.9 cm LVPW Systolic Thickness MM 1.0 cm FINDINGS Left Ventricle Possibly normal LV size and ejection fraction. No gross wall motion normalities noted. The patient was found to be tachycardic during the study. Right Ventricle Possibly of normal size and ejection fraction. Right Atrium Possibly of normal size. Left Atrium Mildly increased left atrial size. Mitral Valve Trace mitral valve regurgitation. Aortic Valve No gross abnormalities noted Tricuspid Valve Not visualized well Pulmonic Valve Not visualized well Pericardium No pericardial effusion. Aorta Normal aortic annulus size. CONCLUSIONS Possibly normal LV size and ejection fraction. No gross wall motion normalities noted. The patient was found to be tachycardic during the study. Mildly increased left atrial size. Trace mitral valve regurgitation. There is no pericardial effusion. Technically difficult study because of the poor ultrasonic window. Comparison with the previous study is difficult because of the poor ultrasonic window Dr Barbara Villeda MD FACC (Electronically Signed) Final Date: 31 May 2020 18:41 S
[2020-05-31 06:58] LABS: Ketone (Acetest) Serum Negative (Negative)
[2020-05-31 07:13] LABS: Troponin(5th) Baseline 150 ng/L (0-10)
--- NOTE | 2020-05-31 07:34 | PC.NURSE ---
Patients person to notify was attempted to be reached via listed number post fall, call went straight to voice mail which was full.
[2020-05-31 07:41] LABS: Ammonia 59 umol/L (11-51)
[2020-05-31 07:43] LABS: Lactate (Lactic Acid level) 19.5 mmol/L (0.5-2.2)
[2020-05-31 08:09] LABS: Urine Creatinine 125 mg/dL (28-217); Urine Random Sodium 48 mmol/L
[2020-05-31 08:23] LABS: Glucose Point of Care 158 mg/dL (70-110)
[2020-05-31] MEDS: sodium chlor 0.9% + KCl 40 mEq 40 MEQ/1,000 ML BAG 75 MEQ IV (08:38)
--- NOTE | 2020-05-31 08:39 | ECG_ITS ---
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 Measurements Intervals [place] Rate: 116 P: 59 VT: 168 QRS: 54 QRSD: 90 T: 56 QT: 358 QTc: 498 Interpretive Statements SINUS TACHYCARDIA ABNORMAL RHYTHM ECG Compared to ECG 05/31/2020 06:40:51 No significant changes Electronically Signed On 05-31-2020 19:42:23 SAFETY LAMP KEEPER by Barbara Villeda M.D. [email or web address] [email or web address] – the [id number]
[2020-05-31] MEDS: enoxaparin 30 mg/0.3 mL Syringe SUBCUT (08:44)
[2020-05-31] MEDS: sodium bicarbonate 8.4% 1 mEq/mL 50mL Syr 50 MEQ IVP (08:57)
[2020-05-31] MEDS: sodium chloride 0.9% 1,000 ML 999 ML IV (08:58)
[2020-05-31 09:05] LABS: ABG PCO2 11.7 mmHg (35-45); ABG PH Result 7.07 (7.35-7.45)
[2020-05-31 09:54] LABS: Glucose Point of Care 135 mg/dL (70-110)
[2020-05-31 10:03] LABS: ABG PH Result 7.35 (7.35-7.45); Arterial Blood Gas Hematocrit 32.5 % (37-47); Base Excess ABG -14.6 mmol/L (-2.0-2.0); Blood Gas Allen Test Pos; Blood Gas Sample Site Brachial, right; Blood Gas Sample Type Arterial; HCO3 ABG 8.8 mmol/L (22-26); PO2 ABG 94.8 mmHg (80.0-100.0)
[2020-05-31 10:04] LABS: Oxygen Device ROOM AIR
--- NOTE | 2020-05-31 10:06 | PC.NURSE ---
0755 Reported critical lab results to Dr. Scott. 0820 Dr. Light at bedside. Reported critical lab results. [address] Light for 1L NS bolus, 1 amp of Bicarb, and to hold PO meds. Reviewed vital signs. 0922 Reported increasing wheezing and coarse lung sounds. Clarified order for NS bolus. Ok to give bolus at 250 ml/hr. Clarified oral KCL replacement without current potassium level. Orders to give. [address] Light that patient was unable to wake up enough to safely swallow oral KCL, which was not given. 0935 Spoke to patient's daughter to update her on status. [address] Light that patient's heart rate has been maintaining 140-160 bpm. Orders to check blood sugar. Reported blood sugar results.
--- NOTE | 2020-05-31 10:27 | PC.NURSE ---
0839 Dr. Light at bedside. Observed patient's breathing pattern, states she will be hyperventilating d/t acidosis. Observed mottled and pale skin.
[2020-05-31 10:28] LABS: D Dimer <= 0.27 ug/mIFEU (0-0.59)
--- NOTE | 2020-05-31 10:38 | P.PN_ITS ---
Subjective Subjective: Interval history: Overnight events noted, this morning patient was seen in the ICU, she was tachypneic due to metabolic acidosis, x-ray did not reveal any consolidation or pneumonia, patient was complaining of dysuria yesterday I believe her sepsis is secondary to UTI, she has stayed afebrile, hemoglobin stable Patient is not complaining of active chest pain, she was able to tell me her name, name of city in the hospital Her concentration seemed very poor I had to repeat question 2-3 times to get an answer, her answers were appropriate to my question Then she told me that this morning she started having panic attack when she was trying to get up from bed and she had no strength to get up at all and fell on the ground Vitals/I&O/Wt Last Vital Signs Temp 97.5 F L 05/31/20 07:00 Pulse 143 H 05/31/20 10:30 Resp 31 H 05/31/20 10:30 BP 106/69 05/31/20 10:30 Pulse Ox 100 05/31/20 10:30 05/30/20 05/31/20 05/31/20 22:59 06:59 14:59 Intake Total 1000 / 2480 102.5 / 102.5 Output Total 450 / 450 Balance 1000 / 2480 -347.5 / -347.5 Weight last 48 hrs Weight 73.028 kg Physical Exam Narrative: EXAM NARRATIVE: Patient was in supine position when I saw her tachypneic respirate 33 Extremely dry buccal mucous membranes, I gave her grape juice and then interviewed her She was able to tell me a little bit of above-mentioned interval history Was not complaining of active chest pain, S1, S2 sinus tachycardia heart rate in 130s Extremely dry severely dehydrated S1, S2 sinus tachycardia no signs of heart failure Tachypnea however has rhonchi which are resonating from upper airway No active signs of fluid overload Her complexion is pale today Poor concentration, fluctuant mentation, no active signs of stroke She is edentulous Answers my questions appropriately however requiring repetition No joint swelling No carotid bruit EOMI, PERRL Urinary Catheter Management^: Villegas: Cath Placed During This Visit: yes Urinary Catheter Date of Insertion: 05/31/20 Urinary Catheter Time of Insertion: 07:13 Data : 05/31/20 06:35 05/29/20 21:12 Micro: Microbiology 05/30/20 01:52 Blood Culture - Preliminary Blood NEGATIVE TO DATE 05/30/20 01:52 Blood Culture - Preliminary Blood NEGATIVE TO DATE A&P Assessment and plan (1) Sepsis: Status: Acute (2) Acute kidney injury: Status: Acute (3) Cystitis: Status: Acute (4) Hypokalemia: Status: Acute (5) Dehydration: Status: Acute (6) Dysphagia: Status: Acute (7) High anion gap metabolic acidosis: Status: Acute (8) NSTEMI (non-ST elevated myocardial infarction): Status: Acute Additional A&P Information Sepsis with metabolic encephalopathy Transfer to ICU 05/31/2020 Sepsis secondary to UTI Worsening leukocytosis, lactic acidemia and currently in sinus tachycardia I am giving her 1 L normal saline bolus and keeping her on normal saline with po tassium supplemented fluids Her antibiotics has been escalated to Primaxin her blood cultures are sterile Urine culture report is pending, lab will report 18 to 24 hours after initial sample No signs of consolidation on portable chest No active signs of cellulitis Severe dehydration with lactic acidemia Secondary to recurrent vomiting and poor p.o. intake due to Zenker's diverticulum Continue fluid resuscitation Has an appointment with ENT at [facility] currently she is unstable to be transferred NSTEMI Nonspecific EKG changes however troponin greater than 100 patient is not complaining of active chest pain has history of grade 1 diastolic function Cardiology consulted we will keep her on ACS protocol with aspirin Plavix and therapeutic dose of Lovenox if her creatinine is worsening will switch to heparin Requested echo for any wall motion abnormality High anion gap metabolic acidosis due to lactic acidemia This seems secondary to dehydration and underlying sepsis I will give her another amp of bicarb and replenish her electrolytes For severe hypokalemia she is getting potassium supplemented fluids I will also give her oral liquid 40 mEq to avoid electrolyte imbalance with bicarb usage I repeat ABG showing improvement of pH, patient is compensating well for her metabolic acidosis, closely monitor for impending respiratory failure Full code Clear liquid diet Therapeutic dose of Lovenox for NSTEMI DVT prophylaxis not indicated Once she is stable I will initiate her transfer to [facility] if family is agreeable, will touch base with family today Attestations Medical Necessity Statement*: Continue ICU management for sepsis, NSTEMI, worsening lactic acidemia and metabolic acidosis Time Spent in Patient Care: 35mins Coding Level of Care Code 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
--- NOTE | 2020-05-31 10:48 | PM.CONSULT ---
Providers/Reason For Consult Consulting Physican/Specialty*: Dr. Quintero, cardiothoracic surgery Reason for Consult*: Incidental finding of right internal carotid artery stenosis Attending Physician: Faustino Light MD Primary Care Provider: Kashmir Lebron DO History of Present Illness History of Present Illness Marlee Vanessa is a 64 year old female who was admitted as an inpatient on May 29 at the presenting to the emergency department with complaints of generalized weakness, lightheadedness, dizziness, malaise, along with nausea vomiting. She has a previous known diagnosis of Zenker's diverticulum we noticed her appetite has been decreasing. Because of progressive weakness she is not able to independently ambulate for about 2 weeks but no focal neurologic issues were of concern. 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 An appointment has not been made as of yet. She has had prior ER visits for nausea and vomiting and dehydration issues. She also has a prior history for chronic kidney disease stage II and a prior history for TIA though the specifics of this are unknown. Initial evaluation was consistent for dehydration with noted hyponatremia and hypokalemia and a lactic acidosis. The CT scan of the neck as part of continued evaluation revealed an incidental what was described as a 80 to 90% stenosis of the proximal right ICA. She currently is on aspirin and statins were initiated. Since admission to the floor was felt that she needed more aggressive monitoring hydration therefore she been transferred to the ICU. She remains only modestly conversive, with some tachypnea and tachycardia up to 140 bpm. She is receiving careful hydration presently. She received potassium supplementation. She has no focal neurologic signs but generalized confusion and weakness. I have personally reviewed the CT scan of the neck which was performed with contrast revealing the described stenosis. I have asked our radiology department to perform a 3D reconstruction of this study for further delineation of the carotid pathology. Of note, carotid duplex study was performed yesterday as part of continued evaluation and reveals no substantial segmental velocity increase on the right side which would be consistent with the CTA findings. Therefore, we have just congruent findings of her carotid disease comparing between the CT of the neck and the carotid duplex study. It should be noted that the CT with contrast of the neck was not a formal CTA. Other studies included chest x-ray which revealed cardiomegaly. CT scan of the chest was essentially unremarkable. CT of the abdomen and pelvis noted small hiatal hernia with mild diverticulosis and small left renal stone. CT of the head revealed no acute process. During my visit with her today in the ICU with nursing staff, she is really unable to answer any questions, though does arouse with communication and with physical stimuli. She does move all extremities spontaneously and face appears to be symmetrical. Initial medicine impression is that she has dehydration lactic acidosis. Serum glucose levels were in the low 100 range. She is also noted to have a UTI which we feel is complicating her clinical picture. Review of Systems General: Reports: ROS unobtainable due to medical condition (I have reviewed the ROS from her admission.) Meds/Allergies Home Medications and Allergies Home Medications Medication Instructions Recorded Confirmed Last Taken Type Sola-Jessica Original 1 tab PO PRN 06/05/19 05/29/20 06/05/19 History aspirin 325 mg PO BEDTIME 06/05/19 05/29/20 05/28/20 History hydrocodone-acetaminophen See Rx Instructions .ROUTE .COMPLEX 06/05/19 05/29/20 05/29/20 18:00 History tizanidine 2 - 4 mg PO BID 06/05/19 05/29/20 05/20/20 History acidophilus-pectin, citrus 1 cap PO TID 05/20/20 05/29/20 05/27/20 History [Acidophilus Probiotic] albuterol sulfate [ProAir HFA] 2 puff INHALATION QID PRN 05/20/20 05/29/20 Unknown History diphenhydramine HCl [Benadryl] 50 - 75 mg PO BEDTIME 05/20/20 05/29/20 05/28/20 History naloxone [Narcan] See Rx Instructions .ROUTE .COMPLEX 05/20/20 05/29/20 Unknown History ondansetron HCl 4 mg PO Q6H PRN 05/20/20 05/29/20 05/29/20 16:00 History pantoprazole 40 mg PO BID@08,16 05/20/20 05/29/20 05/29/20 History nystatin See Rx Instructions .ROUTE .COMPLEX 05/29/20 05/29/20 05/29/20 16:00 History potassium chloride See Rx Instructions .ROUTE .COMPLEX 05/29/20 05/29/2021 History Allergies Allergy/AdvReac Type Severity Reaction Status Date / Time Penicillins Allergy ALGY-Hives Verified 05/29/20 19:43 Current Medications Current Medications Generic Name Dose Route Start Last Admin Trade Name Freq PRN Reason Stop Dose Admin Hydrocodone Bitart/Acetaminophen 1 - 2 tab 05/30/20 01:32 05/31/20 03:18 Hydrocodone-Acetaminophen 10-325 Mg Tablet PO 2 tab Q6H PRN Administration PAIN Aspirin 325 mg 05/30/20 21:00 05/30/20 20:07 Aspirin 325 Mg Tablet PO 325 mg BEDTIME SHIVA Administration Atorvastatin Calcium 80 mg 05/30/20 01:32 05/31/20 03:34 Atorvastatin 40 Mg Tablet PO Not Given Q24H SHIVA Clopidogrel Bisulfate 75 mg 05/31/20 09:00 05/31/20 10:04 Clopidogrel 75 Mg Tablet PO Not Given DAILY SHIVA Potassium Chloride/Sodium Chloride 40 meq in 1,000 mls @ 100 mls/hr 05/30/20 08:00 05/31/20 10:06 Sodium Chlor 0.9% + Kcl 40 Meq IV Not Given .Q10H SHIVA Imipenem/Cilastatin Sodium 250 100 mls @ 200 mls/hr 05/31/20 07:00 05/31/20 08:35 mg/ Sodium Chloride IV Infused Q6H SHIVA Infusion Protocol Levothyroxine Sodium 50 mcg 05/31/20 05:30 05/31/20 06:14 Levothyroxine 100 Mcg Sdv IVP 50 mcg Q24H SHIVA Administration Metoprolol Succinate 12.5 mg 05/31/20 09:00 05/31/20 10:05 Metoprolol Succinate Er (24 Hr) 25 Mg Tablet PO Not Given DAILY SHIVA Ondansetron HCl 4 mg 05/30/20 01:32 05/31/20 03:39 Ondansetron 2 Mg/Ml Sdv 2 Ml IVP 4 mg Q8H PRN Administration vomiting, or N/V if npo Pantoprazole Sodium 40 mg 05/31/20 09:00 05/31/20 10:[address] 40 Mg Tablet PO Not Given DAILY SHIVA PFSH Acute PFSH: Medical History CKD (chronic kidney disease) stage 2, GFR 60-89 ml/min -baseline Cr wnl -monitor renal function with diuresis Diastolic CHF History of TIA (transient ischemic attack) HTN (hypertension) Surgical History H/O: hysterectomy History of cholecystectomy Family History Mother CAD (coronary artery disease) Mother Diabetes Father Diabetes Social History Smoking and tobacco status: current every day smoker cigarettes Packs smoked per day: 1 Years cigarettes smoked: 40 Alcohol intake: never Lives independently: Yes Vitals/I&O/Wt Last Vital Signs Temp 97.5 F L 05/31/20 07:00 Pulse 143 H 05/31/20 10:30 Resp 31 H 05/31/20 10:30 BP 106/69 05/31/20 10:30 Pulse Ox 100 05/31/20 10:30 05/30/20 05/31/20 05/31/20 22:59 06:59 14:59 Intake Total 1000 / 2480 102.5 / 102.5 Output Total 450 / 450 Balance 1000 / 2480 -347.5 / -347.5 Weight last 48 hrs Weight 161 lb Physical Exam Chest: COMMONS NORMALS: normal inspection of the chest and normal palpation of entire chest wall Resp: COMMON NORMALS: No retractions, No use of accessory muscles and percussion normal; negative for clear to auscultation bilaterally EFFORT & INSPECTION: No able to speak in complete sentences, Yes symmetric chest movement, Yes tachypneic and Yes prolonged expiratory phase AUSCULTATION: not clear to auscultation bilaterally PERCUSSION: percussion normal Cardio: COMMON NORMALS: regular rhythm and S1 normal heart sound present; negative for regular rate JUGULAR VENOUS DISTENTION: no JVD RATE: abnormal rate and tachycardic RHYTHM: regular rhythm HEART SOUNDS: S1 normal heart sound present BRUITS: no carotid bruits Extremity: COMMON NORMALS: no clubbing, cyanosis or edema Neuro: OTHER: Cannot completely assess due to obtunded state, nursing service reports patient moves all extremities spontaneously. I did note this during my exam. Urinary Catheter Management^: Villegas: Cath Placed During This Visit: yes Urinary Catheter Date of Insertion: 05/31/20 Urinary Catheter Time of Insertion: 07:13 Data Micro: Micro: Microbiology 05/30/20 01:52 Blood Culture - Pr eliminary Blood NEGATIVE TO SEB E 05/30/20 01:52 Blood Culture - Pr eliminary Blood NEGATIVE TO SEB E A&P Assessment and plan (1) Stenosis of right internal carotid artery: 64-year-old female with a subtle finding of what appears to be high-grade right proximal ICA stenosis during CT of the neck as part of evaluation for Zenker's diverticulum. Currently under ICU care for dehydration acidosis receiving careful fluid resuscitation. There is a discrepancy with carotid duplex study performed the day after the CT of the neck which is not suggestive of flow-limiting right ICA lesion. I have requested our radiology department to perform a 3D reconstruction of the CT with contrast of the neck for hopeful further delineation of potential carotid pathology. She has no localizing signs at this time and no objective evidence that her current condition is related to this ICA pathology. It is my understanding that consideration being made for tertiary referral to [facility] in [place]. This is primarily for her Zenker's diverticulum with subsequent swallowing difficulties which is felt to have led to her current state of dehydration. If this is indeed planned, this carotid lesion could be addressed at that time if further clarified and confirmed. Otherwise, I am happy to address this locally at the appropriate time once her medical condition is at baseline. Obviously, if she develops any type of localizing signs which may be attributed to this lesion, if confirmed, we could proceed in a more expeditious fashion, though given her current condition, I would not recommend this presently. Status: Acute Consult Attestations Medical Necessity Statement: Dehydration acidosis and incidental right carotid artery stenosis Time Spent in Patient Care: Greater than 35 minutes Coding Level of Care Code Acute Drying Rack Changer for Adama Rosado Diagnoses Stenosis of right internal carotid artery I65.21
[2020-05-31 10:50] LABS: Alanine Aminotransferase 19 U/L (0-33); Albumin Level 2.2 g/dL (3.5-5.2); Alkaline Phosphatase 91 IU/L (35-105); Anion Gap 40.1 (5-19); Aspartate Amino Transferase 46 U/L (0-32); Blood Urea Nitrogen 19 mg/dL (8-23); Calcium 7.5 mg/dL (8.5-10.5); Chloride 100 mmol/L (98-107); Creatine Phosphokinase 200 U/L (26-192); Globulin 3.1 g/dL (1.3-4.6); Glomerular Filtration Rate 34.7 mL/min (90-130); Glucose 174 mg/dL (65-115); Magnesium 1.9 mg/dL (1.7-2.3); Osmolality Calculated 304 mOsm/kg (285-295); Potassium 4.1 mmol/L (3.5-5.1); Sodium 144 mmol/L (136-145); Thyroid Stimulating Hormone 3.54 uIU/mL (0.27-4.20); Total Bilirubin 0.4 mg/dL (0.15-1.2); Total Protein 5.3 g/dL (6.6-8.7); Troponin 5 2HR 255.2 ng/L (0-10); Troponin 5 2HR Delta 105.2 ABS# (0-10)
[2020-05-31 10:52] LABS: INR 1.69 (0.8-1.2)
[2020-05-31 10:53] LABS: Partial Thromboplastin Time 37.2 SECONDS (23.9-36.7)
--- NOTE | 2020-05-31 10:53 | PC.OT ---
HOLD per PT
[2020-05-31 10:54] LABS: Fibrinogen 234 mg/dL (174-498)
[2020-05-31 10:57] LABS: Carbon Dioxide 8 mmol/L (22-29)
[2020-05-31 11:21] LABS: Eosinophil Urine No Eosinophils Seen; Urine Eosinophil Count 0 (0-0)
--- NOTE | 2020-05-31 12:59 | PM.CONSULT ---
Providers/Reason For Consult Consulting Physican/Specialty*: TONIA Villeda MD/cardiology Reason for Consult*: Patient with history of diastolic heart failure, presenting with features of a non-ST relation myocardial infarction Attending Physician: Faustino Light MD Primary Care Provider: Kashmir Lebron DO History of Present Illness History of Present Illness Marlee Vanessa is a 64 year old female is admitted to hospital through the emergency room, where she presented with complaints of generalized weakness/nausea, vomiting and dizziness. She also is complaining of tingling and numbness of the extremities. She is admitted to hospital for further evaluation and management. She was found to have elevated troponin T with a significant delta at 2 hours. Cardiology consult is requested for further cardiac evaluation recommendations. Patient has a history of recurrent diastolic heart failure. She has been on diuretics and beta-blockers for this. Because of her hypotension and dehydration, she was taken off of these medications recently. She continued to be hypotensive with the dizziness and weakness. She also has a history of Zenker's diverticulum. She was not able to eat any solid or semisolid food. She was given finding it difficult to drink properly. She was recently seen by the ENT and he is awaiting an appointment at the [facility] in [place], for further management. Patient has some epigastric discomfort. She has been having this for the last few days. She is not able to give any details of this. She has no documented history for coronary artery disease, myocardial infarction . She had a myocardial perfusion imaging in 2017 which was unremarkable. She is known to have mild carotid artery disease by Doppler examination. She has a history of hypertension and TIA. Review of Systems Narrative: CONSTITUTIONAL: No fever or chills. EYES: No blurring of vision or other visual disturbances lately. ENT: Zenker's diverticulum as mentioned above CARDIOVASCULAR: As mentioned above. RESPIRATORY: Has some amount of baseline shortness of breath. GASTROINTESTINAL: Nausea and vomiting as mentioned above GENITOURINARY: No dysuria or hematuria. INTEGUMENTARY: No skin rashes or history of skin cancer. NEURO: Dizziness, weakness, tingling and numbness of the extremities PSYCHIATRIC: No history of psychosis or major depression. HEMATOLOGIC: No bleeding disorders or significant anemia. ENDOCRINE: No history of polyuria or polydipsia. MUSCULOSKELETAL: Patient has been wheelchair-bound because of generalized weakness ALLERGY/IMMUNOLOGY: As mentioned above. Meds/Allergies Home Medications and Allergies Home Medications Medication Instructions Recorded Confirmed Last Taken Type Omar Original 1 tab PO PRN 06/05/19 05/29/20 06/05/19 History aspirin 325 mg PO BEDTIME 06/05/19 05/29/20 05/28/20 History hydrocodone-acetaminophen See Rx Instructions .ROUTE .COMPLEX 06/05/19 05/29/20 05/29/20 18:00 History tizanidine 2 - 4 mg PO BID 06/05/19 05/29/20 05/20/20 History acidophilus-pectin, citrus 1 cap PO TID 05/20/20 05/29/20 05/27/20 History [Acidophilus Probiotic] albuterol sulfate [ProAir HFA] 2 puff INHALATION QID PRN 05/20/20 05/29/20 Unknown History diphenhydramine HCl [Benadryl] 50 - 75 mg PO BEDTIME 05/20/20 05/29/20 05/28/20 History naloxone [Narcan] See Rx Instructions .ROUTE .COMPLEX 05/20/20 05/29/20 Unknown History ondansetron HCl 4 mg PO Q6H PRN 05/20/20 05/29/20 05/29/20 16:00 History pantoprazole 40 mg PO BID@08,16 05/20/20 05/29/20 05/29/20 History nystatin See Rx Instructions .ROUTE .COMPLEX 05/29/20 05/29/20 05/29/20 16:00 History potassium chloride See Rx Instructions .ROUTE .COMPLEX 05/29/20 05/29/20 05/28/20 History Allergies Allergy/AdvReac Type Severity Reaction Status Date / Time Penicillins Allergy ALGY-Hives Verified 05/29/20 19:43 Current Medications Current Medications Generic Name Dose Route Start Last Admin Trade Name Freq PRN Reason Stop Dose Admin Hydrocodone Bitart/Acetaminophen 1 - 2 tab 05/30/20 01:32 05/31/20 03:18 Hydrocodone-Acetaminophen 10-325 Mg Tablet PO 2 tab Q6H PRN Administration PAIN Aspirin 325 mg 05/30/20 21:00 05/30/20 20:07 Aspirin 325 Mg Tablet PO 325 mg BEDTIME SHIVA Administration Atorvastatin Calcium 80 mg 05/30/20 01:32 05/31/20 03:34 Atorvastatin 40 Mg Tablet PO Not Given Q24H SHIVA Clopidogrel Bisulfate 75 mg 05/31/20 09:00 05/31/20 10:04 Clopidogrel 75 Mg Tablet PO Not Given DAILY SHIVA Potassium Chloride/Sodium Chloride 40 meq in 1,000 mls @ 100 mls/hr 05/30/20 08:00 05/31/20 10:06 Sodium Chlor 0.9% + Kcl 40 Meq IV Not Given .Q10H SHIVA Imipenem/Cilastatin Sodium 250 100 mls @ 200 mls/hr 05/31/20 07:00 05/31/20 12:13 mg/ Sodium Chloride IV 200 mls/hr Q6H SHIVA Administration Protocol Metoprolol Succinate 12.5 mg 05/31/20 09:00 05/31/20 10:05 Metoprolol Succinate Er (24 Hr) 25 Mg Tablet PO Not Given DAILY SHIVA Ondansetron HCl 4 mg 05/30/20 01:32 05/31/20 03:39 Ondansetron 2 Mg/Ml Sdv 2 Ml IVP 4 mg Q8H PRN Administration vomiting, or N/V if npo Pantoprazole Sodium 40 mg 05/31/20 09:00 05/31/20 10:[address] 40 Mg Tablet PO Not Given DAILY SHIVA PFSH Acute PFSH: Medical History CKD (chronic kidney disease) stage 2, GFR 60-89 ml/min -baseline Cr wnl -monitor renal function with diuresis Diastolic CHF History of TIA (transient ischemic attack) HTN (hypertension) Surgical History H/O: hysterectomy History of cholecystectomy Family History Mother CAD (coronary artery disease) Mother Diabetes Father Diabetes Social History Smoking and tobacco status: current every day smoker cigarettes Packs smoked per day: 1 Years cigarettes smoked: 40 Alcohol intake: never Lives independently: Yes Vitals/I&O/Wt Last Vital Signs Temp 97.5 F L 05/31/20 11:00 Pulse 111 H 05/31/20 12:45 Resp 26 H 05/31/20 12:45 BP 97/59 05/31/20 12:45 Pulse Ox 93 05/31/20 12:45 05/30/20 05/31/20 05/31/20 22:59 06:59 14:59 Intake Total 1000 / 2480 102.5 / 102.5 Output Total 450 / 450 Balance 1000 / 2480 -347.5 / -347.5 Weight last 48 hrs Weight 161 lb Physical Exam Narrative: EXAM NARRATIVE: GENERAL: The patient is alert and oriented times three. Seems to be agitated and somewhat restless. Chronically ill looking HEENT: Moderate pallor. No icterus or lymphadenopathy. The pupils are reactant to light. Oral cavity: There are no mucous membrane lesions. Funduscopic examination: The disk margins appear to be sharp with no exudates or hemorrhages. NECK: Trachea appears to be central. No masses noted. No JVD or thyromegaly appreciated. No carotid bruit. RESPIRATORY: Chest is symmetrical. No intercostals muscle retraction or any accessory muscle activation. There is no chest wall tenderness. Breath sounds are heard bilaterally. No rales or rhonchi heard. No evidence of any consolidation. BREASTS: Deferred. HEART: The PMI could not be palpated. No other palpable precordial events. First and second heart sounds are normal. No S3. No significant murmurs. ABDOMEN: Vague tenderness in epigastric area. No organomegaly appreciated. Bowel sounds are normally heard. : Deferred. RECTAL: Deferred. LYMPHATIC: No lymphadenopathy noted in the neck or groin. EXTREMITIES: Extremities are relatively cold. Peripheral pulses are weak bilaterally MUSCULOSKELETAL: No acute joint deformities or swelling SKIN: There are no significant scars or skin rash noted. NEUROPSYCHIATRIC: The patient is alert and oriented x3. No focal motor deficits noted Urinary Catheter Management^: Villegas: Cath Placed During This Visit: yes Urinary Catheter Date of Insertion: 05/31/20 Urinary Catheter Time of Insertion: 07:13 Data Labs: Other Labs: Laboratory Last Values WBC 19.8 10^3/uL (4.0 -10.0) H 05/31/20 06:35 RBC 2.98 10^6/uL (4.1 -5.3) L 05/31/20 06:35 Hgb 9.9 g/dL (11.5-15 .3) L 05/31/20 06:35 Hct 33.3 % (37.0-47.0 ) L 05/31/20 06:35 MCV 111.7 fL (81-99) H 05/31/20 06:35 MCH 33.2 pg (28.0-34. 0) 05/31/20 06:35 MCHC 29.7 g/dL (30.0-3 6.0) L 05/31/20 06:35 RDW 17.3 % (12.1-15.1 ) H 05/31/20 06:35 Plt Count 316 10^3/cmm (130 -400) 05/31/20 06:35 MPV 10.4 fL (7.4-10.4 ) 05/31/20 06:35 Neut % (Auto) 82.8 % 05/31/20 06:35 Lymph % (Auto) 5.7 % 05/31/20 06:35 Ransom % (Auto) 9.8 % 05/31/20 06:35 Eos % (Auto) 0.0 % 05/31/20 06:35 Baso % (Auto) 0.3 % 05/31/20 06:35 Neut # (Auto) 16.36 10^3/uL (1. 8-7.7) H 05/31/20 06:35 Lymph # (Auto) 1.1 10^3/uL (0.8- 4.8) 05/31/20 06:35 Ransom # (Auto) 1.9 10^3/uL (0.2- 0.9) H 05/31/20 06:35 Eos # (Auto) 0.0 10^3/uL (0.0- 0.8) 05/31/20 06:35 Baso # (Auto) 0.1 10^3/uL (0.0- 0.1) 05/31/20 06:35 Nucleated RBC % (a uto) 0.9 % 05/31/20 06:35 Nucleated RBCs # 0.2 /100WBC 05/31/20 06:35 PT 20.50 SECONDS (12 .1-14.9) H 05/31/20 09:20 INR 1.69 (0.8-1.2) H 05/31/20 09:20 APTT 37.2 SECONDS (23. 9-36.7) H 05/31/20 09:20 Fibrinogen 234 mg/dL (174-49 8) 05/31/20 09:20 Fibrin Degrad Prod ucts Pos, 10-40 ug/mL (NEG) H 05/31/20 09:20 D-Dimer <= 0.27 ug/mIFEU (0-0.59) 05/31/20 09:20 Specimen Type Arterial 05/31/20 09:54 Sample Site Brachial, right 05/31/20 09:54 ABG pH 7.35 (7.35-7.45) 05/31/20 09:54 ABG pCO2 16.0 mmHg (35-45) L* 05/31/20 09:54 ABG pO2 94.8 mmHg (80.0-1 00.0) 05/31/20 09:54 ABG HCO3 8.8 mmol/L (22-26 ) L 05/31/20 09:54 ABG Base Excess -14.6 mmol/L (-2. 0-2.0) L 05/31/20 09:54 James Test Pos 05/31/20 09:54 Hematocrit 32.5 % (37-47) L 05/31/20 09:54 O2 Delivery Device Room air 05/31/20 09:54 O2 Liters/Min 6.0 % 05/31/20 05:13 FiO2 21.0 % 05/31/20 09:54 Front End Specialist ID [id number] 05/31/20 09:54 Sodium 144 mmol/L (136-1 45) 05/31/20 09:20 Potassium 4.1 mmol/L (3.5-5 .1) 05/31/20 09:20 Chloride 100 mmol/L (98-10 7) 05/31/20 09:20 Carbon Dioxide 8 mmol/L (22-29) L* 05/31/20 09:20 Anion Gap 40.1 (5-19) H 05/31/20 09:20 BUN 19 mg/dL (8-23) 05/31/20 09:20 Creatinine 1.5 mg/dL (0.5-0. 9) H 05/31/20 09:20 GFR Calculation 34.7 mL/min (90-1 30) L 05/31/20 09:20 Glucose 174 mg/dL (65-115 ) H 05/31/20 09:20 POC Glucose 135 mg/dL (70-110 ) H 05/31/20 09:50 Calculated Osmolal ity 304 mOsm/kg (285- 295) H 05/31/20 09:20 Lactate 19.5 mmol/L (0.5- 2.2) H* 05/31/20 06:35 Calcium 7.5 mg/dL (8.5-10 .5) L 05/31/20 09:20 Phosphorus 5.0 mg/dL (2.5-4. 5) H 05/31/20 09:20 Magnesium 1.9 mg/dL (1.7-2. 3) 05/31/20 09:20 Total Bilirubin 0.4 mg/dL (0.15-1 .2) 05/31/20 09:20 AST 46 U/L (0-32) H 05/31/20 09:20 ALT 19 U/L (0-33) 05/31/20 09:20 Alkaline Phosphata se 91 IU/L (35-105) 05/31/20 09:20 Ammonia 59 umol/L (11-51) H 05/31/20 06:35 Creatine Kinase 200 U/L (26-192) H 05/31/20 09:20 Troponin T Baselin e 150 ng/L (0-10) H* 05/31/20 06:35 Troponin T 120 Min chato 255.2 ng/L (0-10) H 05/31/20 09:20 Delta Troponin T 105.2 ABS# (0-10) H* 05/31/20 09:20 C-Reactive Protein 9.0 mg/L (0.0-4.9 ) H 05/31/20 09:20 Total Protein 5.3 g/dL (6.6-8.7 ) L 05/31/20 09:20 Albumin 2.2 g/dL (3.5-5.2 ) L 05/31/20 09:20 Globulin 3.1 g/dL (1.3-4.6 ) 05/31/20 09:20 TSH 3.54 uIU/mL (0.27 -4.20) 05/31/20 09:20 Urine Color Yellow (Yellow) 05/29/20 23:00 Urine Appearance Clear (CLEAR) 05/29/20 23:00 Urine pH 5 (5-7) 05/29/20 23:00 Ur Specific Gravit y 1.000 (1.005-1.0 30) L 05/29/20 23:00 Urine Protein Neg (Negative) 05/29/20 23:00 Urine Glucose (UA) Norm (Normal) 05/29/20 23:00 Urine Ketones Negative (Negati ve) 05/29/20 23:00 Urine Blood Neg (Negative) 05/29/20 23:00 Urine Nitrate Positive (Negati ve) H 05/29/20 23:00 Urine Bilirubin Neg (Negative) 05/29/20 23:00 Urine Urobilinogen Norm mg/dL (Negat beatrice) 05/29/20 23:00 Ur Leukocyte Kaylee ase 2+ (Negative) H 05/29/20 23:00 Urine RBC 0-4 /hpf (0-2) H 05/29/20 23:00 Urine WBC 15-25 /hpf (0-5) H 05/29/20 23:00 Ur Eosinophil Smea r 0 (0-0) 05/31/20 07:12 Ur Squamous Epith Cells 0-4 /hpf (0-5) H 05/29/20 23:00 Amorphous Sediment Not Reportable 05/29/20 23:00 Urine Bacteria 2+ /hpf (NONE) H 05/29/20 23:00 Urine Eosinophils No eosinophils se en 05/31/20 07:12 Ur Random Sodium 48 mmol/L 05/31/20 07:12 Urine Creatinine 125 mg/dL (28-217 ) 05/31/20 07:12 Serum Ketones Negative (Negati ve) 05/31/20 06:35 Micro: Micro: Microbiology 05/29/20 23:00 Urine Culture - Pr eliminary Urine,Clean Catch Gram Negative R ods Gram Negative R ods#2 05/30/20 01:52 Blood Culture - Pr eliminary Blood NEGATIVE TO SEB E 05/30/20 01:52 Blood Culture - Pr eliminary Blood NEGATIVE TO SEB E Imaging^: Echo: My impression: 2019 Left ventricular cavity not well visualized. Normal left ventricular size, systolic function and wall thickness, with no regional wall motion abnormalities. Grade I/IV diastolic dysfunction (abnormal relaxation filling pattern), normal to mildly elevated filling pressures. Left ventricular ejection fraction is estimated at 65 %. Mildly increased left atrial size. There are no prior echocardiogram studies to compare. US Vascular: My impression: Right ICA stenosis <50%. Left ICA stenosis <50%. Normal antegrade Doppler flow noted in the right vertebral artery. Normal antegrade Doppler flow noted in the left vertebral artery. EKG^: EKG 1: My Interpretation: The EKG showed a sinus tachycardia with a rate of [address]-T changes. A&P Assessment and plan (1) NSTEMI (non-ST elevated myocardial infarction): Elevated troponin T is suggestive of a non-ST elevation myocardial infarction. However the limited 2D echocardiogram revealed normal LV size ejection fraction with no significant wall motion normalities. Patient apparently had an unremarkable myocardial perfusion imaging in 2017. No documentation of any cardiac catheterization in the past. Status: Acute (2) High anion gap metabolic acidosis: Most likely from the dehydration. Status: Acute (3) Chronic diastolic heart failure: Seems compensated. Status: Acute (4) Acute kidney injury: Possibly from the dehydration Status: Acute (5) Dehydration: Patient is on IV hydration at this time. Carefully watch for any evidence of heart failure Status: Acute (6) HTN (hypertension): Currently the patient is hypotensive. Status: Acute Qualifiers: Hypertension type: essential hypertension Qualified Code(s): I10 - Essential (primary) hypertension Additional A&P Information Other problems are Anemia Leukocytosis Possible sepsis May continue on Lovenox and aspirin. Consider cardiac catheterization, once she is adequately hydrated and hemodynamically stable. Thank you for the opportunity to evaluate this patient and make these recommendations Coding Level of Care Code Acute Gravity Meter Observer for [facility] Fwd History Detailed Exam Detailed Medical Decision Making Moderate Complexity Diagnoses NSTEMI (non-ST elevated myocardial infarction) I21.4 High anion gap metabolic acidosis E87.2 Chronic diastolic heart failure I50.32 Acute kidney injury N17.9 Dehydration E86.0 HTN (hypertension) I10 Hypertension type: essential hypertension Time Spent (min) 55
[2020-05-31] MEDS: sodium bicarbonate 150 MEQ in dextrose 5% 1,000 ML IV ×2 (13:13→22:02)
--- NOTE | 2020-05-31 13:30 | ECG_ITS ---
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 Measurements Intervals [place] Rate: 110 P: 13 ND: 157 QRS: 29 QRSD: 84 T: 23 QT: 366 QTc: 495 Interpretive Statements SINUS TACHYCARDIA LOW QRS VOLTAGE IN PRECORDIAL LEADS [QRS DEFLECTION < 1.0 mV IN CHEST LEADS] ABNORMAL RHYTHM ECG INTERPRETATION BASED ON A DEFAULT AGE OF 40 YEARS Compared to ECG 05/31/2020 08:05:32 Low QRS voltage now present Electronically Signed On 05-31-2020 19:44:00 CIGAR MAKING MACHINE SUPERVISOR by Barbara Villeda M.D. [id number] f
[2020-05-31 14:46] LABS: Estmated Average Glucose 105; Hemoglobin A1C 5.3 % (4.0-6.0)
--- NOTE | 2020-05-31 15:35 | PC.NURSE ---
1045 Dr. Quintero at bedside. Discussed vital signs, hydration, respiratory status, neuro status, and carotid stenosis. No idication for surgery at this time. [address] Villeda. Reviewed vital signs. security installation technician called to complete test. Reviewed IVF and all labs, including trop. Orders for Levophed drip per protocol. [address] Villeda for EKG. Discussed plan for cardiac cath when patient is stable. 1530 Reported low blood pressure and initiation of Levophed drip to Dr. Light.
--- NOTE | 2020-05-31 19:12 | PC.NURSE ---
1545 Reported UOP 50 ml over the [address] Light at bedside. Reported need for central line, difficulty swallowing with regurgitation, and low UOP. Orders to decrease Levophed drip.
[2020-05-31 19:32] LABS: Blood Urea Nitrogen 19 mg/dL (8-23); Calcium 7.4 mg/dL (8.5-10.5); Carbon Dioxide 14 mmol/L (22-29); Chloride 101 mmol/L (98-107); Glomerular Filtration Rate 37.6 mL/min (90-130); Glucose 166 mg/dL (65-115); Osmolality Calculated 296 mOsm/kg (285-295); Sodium 140 mmol/L (136-145)
[2020-05-31 19:34] LABS: Anion Gap 28.9 (5-19); Potassium 3.9 mmol/L (3.5-5.1)
[2020-05-31 19:35] LABS: Lactate (Lactic Acid level) 11.7 mmol/L (0.5-2.2)
--- NOTE | 2020-05-31 20:43 | PC.NURSE ---
Dr. Scott contacted and informed that patient is on 14 mcg/min of Levophed with BP 88/71, T.O given to switch to Dopamine drip and bolus 500 ml LR
[2020-05-31] MEDS: aspirin 325 mg Tablet PO (21:33)
[2020-05-31] MEDS: DOPamine drip 400 MG/250 ML PREMIX 27.4 MG IV (21:33)
[2020-05-31] MEDS: enoxaparin 80 mg/0.8 mL Syringe 70 MG SUBCUT (21:34)
[2020-05-31] MEDS: lactated ringers 500 ML 999 ML (22:39)
--- NOTE | 2020-05-31 22:42 | CTR_ITS ---
PROCEDURE INFORMATION: Exam: CT Chest Without Contrast; Diagnostic Exam date and time: 05/31/2020 10:52 PM Age: 64 years old Clinical indication: Other: Sepsis; Prior surgery; Surgery date: 6+ months; Surgery type: Gb, appy, hyst; Additional info: Septic shock, ruptured zenker diverticulum? TECHNIQUE: Imaging protocol: Diagnostic computed tomography of the chest without contrast. Radiation optimization: All CT scans at this facility use at least one of these dose optimization techniques: automated exposure control; mA and/or kV adjustment per patient size (includes targeted exams where dose is matched to clinical indication); or iterative reconstruction. COMPARISON: CT abdomen pelvis w con* [id number] 05/29/2020 10:40 PM RADIATION DOSE METRICS: Total DLP (mGy-cm): 1853.48 FINDINGS: Lungs: Nonspecific ground-glass infiltrates throughout both lungs. Pleural spaces: Minimal left pleural effusion. No right pleural effusion. No pneumothorax. Heart: No cardiomegaly demonstrated. Mediastinal space: The distal esophagus is unremarkable. Aorta: Atherosclerosis of the thoracic aorta. No aneurysm. Lymph nodes: No pathologically enlarged lymph nodes are demonstrated. Stomach and bowel: There is an diverticulum of the cervical esophagus, measuring 3.8 x 2.7 x 3.3 cm, consistent with a Zenker diverticulum. No rupture of the diverticulum noted. Bones/joints: Mild degenerative spine changes. No acute osseous abnormality. Soft tissues: The soft tissues appear unremarkable. IMPRESSION: 1. There is an diverticulum of the cervical esophagus, measuring 3.8 x 2.7 x 3.3 cm, consistent with a Zenker diverticulum. No rupture of the diverticulum noted. Diverticulum is unchanged from 05/29/2020. 2. Nonspecific ground-glass infiltrates throughout both lungs. Consider viral pneumonia clinically. These imaging features can also occur with a variety of infectious and noninfectious processes. (Reference: Jason) References: Jason Wiggins, et al., Radiological Society of [place] Expert Consensus Statement on Reporting Chest CT Findings Related to COVID-19. Endorsed by the Society of Thoracic Radiology, the [place], and RSNA. Published June 13, 2019. These infiltrates are new when compared to 05/29/2020. PROCEDURE INFORMATION: Exam: CT Abdomen And Pelvis Without Contrast Exam date and time: 05/31/2020 10:52 PM Age: 64 years old Clinical indication: Other: Sepsis; Prior surgery; Surgery date: 6+ months; Surgery type: Gb, appy, hyst; Additional info: Septic shock, ruptured zenkers? TECHNIQUE: Imaging protocol: Computed tomography of the abdomen and pelvis without contrast. Radiation optimization: All CT scans at this facility use at least one of these dose optimization techniques: automated exposure control; mA and/or kV adjustment per patient size (includes targeted exams where dose is matched to clinical indication); or iterative reconstruction. COMPARISON: CT abdomen pelvis w con* [id number] 05/29/2020 10:40 PM RADIATION DOSE METRICS: Total DLP (mGy-cm): 1853.48 FINDINGS: Lungs: Please see accompanying CT chest report from same date. Liver: Decreased hepatic density is noted, consistent with hepatic steatosis. Gallbladder and bile ducts: The gallbladder is surgically absent. No biliary dilatation. Pancreas: The pancreas is normal in appearance. No pancreatic duct dilatation. Spleen: The spleen is normal in size and appearance. Adrenal glands: The adrenal glands appear within normal limits. Kidneys and ureters: The kidneys are normal in morphology. No hydronephrosis. No solid mass. Stomach and bowel: No acute gastric abnormality demonstrated. Diverticulosis of the colon; no acute diverticulitis. Appendix: No evidence of appendicitis. Intraperitoneal space: No pneumoperitoneum. No significant fluid collection. Vasculature: The aorta is atherosclerotic. No aortic aneurysm. Lymph nodes: No pathologically enlarged lymph nodes are demonstrated. Urinary bladder: There is a Villegas catheter in the urinary bladder. The urinary bladder is unremarkable in appearance. Reproductive: The uterus is not visualized, consistent with hysterectomy. Bones/joints: Degenerative spine changes are noted. Soft tissues: Mild nonspecific subcutaneous edema. Focal areas of subcutaneous air seen in the left anterior abdominal wall, which may be related to recent injections. CT/CT chest abd pel wo con IMPRESSION: 1. Decreased hepatic density is noted, consistent with hepatic steatosis. 2. Diverticulosis of the colon; no acute diverticulitis. 3. No acute abnormality demonstrated in the abdomen and pelvis. 4. There is no interval change from 05/29/2020. Radiation Dose CTDIVOL = (mGy): DLP = 1853.48~1853.48 (mGy-cm)
[2020-05-31 22:46] LABS: Magnesium 1.8 mg/dL (1.7-2.3)
--- NOTE | 2020-05-31 23:25 | PC.PHAR ---
Pharmacokinetic dosing service Date: 05/31/20 Time: 2329 Objective: Patient: Marlee Vanessa Floor: ICU-10 Age: 64 yo Serum creatinine: 1.4 mg/dL Height: 63.0 Inches Weight (kg): 73.028 Diagnosis: Relevant medical/social history: Cultures and sensitivities: Other labs: Assessment: IBW (kg): 52.40 Dosing wt(kg): 73.028 Estimated Creatinine clearance (ml/min): 32.7 CRCL method: Cockcroft and Gault using ibw(default). Drug selected: Vancomycin Loading dose (mg): 0 Vd (liters): 65.7 (factor used: 0.9 L/kg) Sushil (hr-1): 0.032 Half life (hrs): 21.66 Recommended dose: 1250 mg Interval: 24 hrs Infusion time (hrs): 1.5 Predicted peak (mcg/mL): 34.7 Predicted trough (mcg/mL): 16.89 Total body weight is being used for vancomycin dosing. Renal function is stable [ ] /unstable [ ] Recommendations: Give Vancomycin 1250 mg q 24 hrs with an expected Cpeak of 34.7 mcg/ml and an expected Ctrough of 16.89 mcg/ml Renal dosing of other antibiotics (review renal dosing of other medications and list guidelines here): Thank you for the consult, will continue to follow. Signature: Mikayla Sanford [facility]
[2020-06-01] VITALS (72 sets, daily range): BP systolic 44–102; BP diastolic 20–66; PULSE 33–153; RESP 0–41; TEMP 36.3–36.9; O2SAT 74–100
--- NOTE | 2020-06-01 00:28 | PC.NURSE ---
Addendum entered by Marc Bernstein RN 06/01/20 09:34: Dr. Scott at bedside approximately 2250, no orders given at that time Addendum entered by Marc Bernstein RN 06/01/20 01:35: Dr. Scott also notified of labored breathing Original Note: one episode of emesis, lungs now coarse and wheezy, Dr. Scott notified and gave T.O. for Albuterol Neb
[2020-06-01] MEDS: vancomycin 1,500 MG/300 ML PIGGYBACK 200 MG IV (00:31)
--- NOTE | 2020-06-01 00:52 | PC.NURSE ---
This nurse requested Arterial Line due to inconsistent BP in order to properly titrate dopamine drip, Dr. Scott informed this nurse that that intervention was inappropriate at this time and ordered 1 unit of PRBC due to Hgb of 7.8
--- NOTE | 2020-06-01 03:29 | PC.NURSE ---
Dr. Scott contacted and was informed of new peripheral edema, dusky and mottled skin, approved phenylephrine order and gave T.O. for dobutamine drip and 40 mEq Lasix one time now
[2020-06-01] MEDS: phenylephrine inj 25 MG in sodium chloride 0.9% 250 ML 24.2 MG IV (03:30)
--- NOTE | 2020-06-01 03:42 | PC.NURSE ---
Addendum entered by Marc Bernstein RN 06/01/20 09:40: delay in redraw of T&C due to nursing staff and lab unable to obtain blood draw Original Note: Dr. Scott notified of Type and screen being hemolyized and delay in redraw due, Dr. Scott gave T.O. for emergent blood, this nurse attempted to contact family but was unable to contact them
[2020-06-01] MEDS: hydrocortisone 100 mg/2 mL SDV IVP ×3 (04:01→14:51)
[2020-06-01] MEDS: FUROsemide 10 mg/mL SDV 4mL 40 MG IVP (04:01)
[2020-06-01] MEDS: DOBUTamine drip 500 MG/250 ML PREMIX 11 MG IV (04:01)
[2020-06-01] MEDS: DOPamine drip 400 MG/250 ML PREMIX 54.8 MG IV ×4 (04:09→20:10)
--- NOTE | 2020-06-01 04:21 | PC.NURSE ---
Addendum entered by Marc Bernstein RN 06/01/20 09:30: Dr. Scott was notified of incorrect Hgb reported and gave telephone order to continue infusion of emergent PRBC prior to starting Emergent blood infusion Original Note: this nurse notified Dr. Scott that Hgb of 7.8 reported was incorrect, last reported Hgb was 9.9 063 05/31, Dr. Scott gave T.O. to infuse the emergent PRBC due to patient being dusky, modeling and unable to obtain BP
[2020-06-01 04:35] LABS: Hematocrit 38.8 % (37.0-47.0); Hemoglobin 11.3 g/dL (11.5-15.3)
--- NOTE | 2020-06-01 06:31 | P.EN_ITS ---
Event Note Event Note: This evening, patient was examined multiple times, she is alert to person, not to place, not to time, she developed sinus tachycardia overnight, heart rates in the 150s, with persistent hypotension despite being on maximum dose dopamine, she has some peripheral mottling, phenylephrine, and then do butamine were added (hospital is in short supply of Levophed, vasopressin) currently her blood pressure is 85/56, heart rate 120, respiratory rate 20s to 30s, on 2 L. I repeated a CT of her chest abdomen pelvis, which did not show any evidence of rupture of the Zenker diverticulum, I also gave her a liter bolus to see if her pressures were improved, she actually looks a bit fluid overloaded, so she was given Lasix, and she did put out up to 200 cc of urine. I also expected her antibiotic coverage to vancomycin couple added stress dosing steroids for possible adrenal insufficiency. Her morning labs are pending. In addition there was concerns for anemia, overnight, as she looked pale, diaphoretic, with mottling, hemoglobin down to 9.9, she was also given emergent transfusion of 1 unit PRBC, hemoglobin actually trended upwards to 11.3.
[2020-06-01 06:53] LABS: ABG PCO2 21.5 mmHg (35-45); ABG PH Result 7.45 (7.35-7.45); Arterial Blood Gas Hematocrit 29.4 % (37-47); Base Excess ABG -7.4 mmol/L (-2.0-2.0); Blood Gas Allen Test Pos; Blood Gas Sample Site Brachial, right; Blood Gas Sample Type Arterial; HCO3 ABG 15.1 mmol/L (22-26); Oxygen Device NC; PO2 ABG 42.9 mmHg (80.0-100.0)
[2020-06-01 07:15] LABS: Alanine Aminotransferase 27 U/L (0-33); Albumin Level 1.9 g/dL (3.5-5.2); Alkaline Phosphatase 80 IU/L (35-105); Blood Urea Nitrogen 20 mg/dL (8-23); Calcium 6.1 mg/dL (8.5-10.5); Carbon Dioxide 14 mmol/L (22-29); Chloride 101 mmol/L (98-107); Globulin 2.4 g/dL (1.3-4.6); Glomerular Filtration Rate 34.7 mL/min (90-130); Glucose 206 mg/dL (65-115); Magnesium 1.7 mg/dL (1.7-2.3); Osmolality Calculated 303 mOsm/kg (285-295); Sodium 142 mmol/L (136-145); Total Bilirubin 0.4 mg/dL (0.15-1.2); Total Protein 4.3 g/dL (6.6-8.7)
[2020-06-01 07:30] LABS: Anion Gap 30.4 (5-19); Aspartate Amino Transferase 100 U/L (0-32)
[2020-06-01 07:31] LABS: Potassium 3.4 mmol/L (3.5-5.1)
--- NOTE | 2020-06-01 07:40 | ECG_ITS ---
[facility] Test Date: 2020-06-01 Pat Name: Marlee Vanessa Department: Room: ICU10 Gender: Female Parboiler: : 1955 Requested By: Faustino Light Order Number: [id number] Gely MD: Barbara Villeda M.D. Measurements Intervals [place] Rate: 118 P: 32 OR: 96 QRS: 61 QRSD: 89 T: 57 QT: 358 QTc: 503 Interpretive Statements Multifocal atrial tachycardia with frequent premature ventricular contractions LOW QRS VOLTAGE IN PRECORDIAL LEADS [QRS DEFLECTION < 1.0 mV IN CHEST LEADS] NONSPECIFIC ST & T-WAVE ABNORMALITY ABNORMAL RHYTHM ECG Compared to ECG 05/31/2020 14:16:46 Short OR interval now present T-wave abnormality now present Electronically Signed On 06-01-2020 22:42:10 CDT by Barbara Villeda M.D. [id number]
[2020-06-01] MEDS: adenosine 3 mg/mL SDV 2mL 12 MG IVP (08:00)
[2020-06-01] MEDS: LORazepam 2 mg/mL INJ 1 mL 0.5 MG IVP (08:16)
[2020-06-01 08:22] LABS: Free T4 Free Thyroxine 0.84 ng/dL (0.82-1.77); T3 Free 1.1 PG/ML (2.0-4.4); Thyroid Stimulating Hormone 1.27 uIU/mL (0.27-4.20)
[2020-06-01 08:29] LABS: Creatine Phosphokinase 430 U/L (26-192)
[2020-06-01] MEDS: ondansetron 2 mg/ML SDV 2 mL 4 MG IVP ×2 (08:30→15:28)
[2020-06-01] MEDS: vasopressin 20 unit/mL INJ INJECTION (08:30)
--- NOTE | 2020-06-01 09:32 | PC.NURSE ---
Emergent blood started at 0430, finished at 0630, no S/S of reaction throughout transfusion. Dr. Scott at bedside 0640, no new orders given
--- NOTE | 2020-06-01 09:46 | XRR_ITS ---
PROCEDURE INFORMATION: Exam: XR Chest Exam date and time: 06/01/2020 9:47 AM Age: 64 years old Clinical indication: Device placement; Other: Central line placement TECHNIQUE: Imaging protocol: XR of the chest Views: 1 view. COMPARISON: CT chest abd pel wo con 05/31/2020 11:46 PM FINDINGS: Tubes, catheters and devices: Central venous catheter via the left subclavian approach with the tip projecting over the superior vena cava. Lungs: Patchy interstitial and alveolar airspace disease left greater than right perihilar region and left greater than right upper lobes. Likely infectious.Covid within the differential diagnosis and of concern. Pleural spaces: Unremarkable. No pleural effusion. No pneumothorax. Heart/Mediastinum: Cardiac silhouette is enlarged. Bones/joints: Unremarkable. XR/XR chest 1V [id number] IMPRESSION: Patchy interstitial and alveolar airspace disease left greater than right perihilar region and left greater than right upper lobes. Likely infectious.Covid within the differential diagnosis and of concern.
--- NOTE | 2020-06-01 09:55 | ANES.PROC ---
Anesthesia Procedures Procedure/Date: 06/01/20 Arterial Line: Time Out Performed: Yes Consent: requested by attending/covering physician, from patient, risks and benefits reviewed, patient agrees to proceed and emergency procedure Size (Gauge): 20 Technique Used: guide wire technique Post-Procedure: line sutured into place Patient Tolerated Procedure: well Complications: none Site: right and femoral Additional Comments: Right femoral kit used, heat transfer technician, it took several punctures to be successful--patient seemed to tolerate OK. Central Venous Insert: Central Venous Line: 7fr. 3-lumen 20cm Time Out Performed: Yes Consent: requested by attending/covering physician, from patient, risks and benefits reviewed, patient agrees to proceed and emergency procedure Central Line: New Anesthesia monitors: pulse oximetry, EKG, BP cuff and oxygen Vein cannulated: left subclavian Post procedure: Obtain Chest X-Ray Additional Comments: First attempted in left groin, several attempts unsuccessful. Transitioned to left subclavian (for cleaner and trimmer access), seldinger tech, sterile gown, gloves and drape. Uneventful left subclavian stick and patient tolerated well. CXR to follow. Sutured in place and sterile dressing.
[2020-06-01] MEDS: lidocaine 1% INJ 20 mL XX (10:28)
[2020-06-01] MEDS: sodium chlor 0.9% + KCl 40 mEq 40 MEQ/1,000 ML BAG 30 MEQ IV (10:30)
[2020-06-01] MEDS: sodium bicarbonate 150 MEQ in dextrose 5% 1,000 ML IV (10:30)
[2020-06-01] MEDS: sodium chloride 0.9% 500 ML IV (10:33)
[2020-06-01] MEDS: phenylephrine inj 25 MG in sodium chloride 0.9% 250 ML 78.8 MG IV (11:09)
[2020-06-01] MEDS: DOBUTamine drip 500 MG/250 ML PREMIX 43.8 MG IV ×2 (11:16→16:16)
[2020-06-01 11:30] LABS: Basophils % 0.2 %; Hemoglobin 8.3 g/dL (11.5-15.3); Lymphocytes # 1.4 10^3/uL (0.8-4.8); Lymphocytes % 8.6 %; Mean Corpuscular HGB Conc 31.8 g/dL (30.0-36.0); Mean Corpuscular Hemoglobin 32.2 pg (28.0-34.0); Mean Corpuscular Volume 101.2 fL (81-99); Mean Platelet Volume 10.2 fL (7.4-10.4); Monocytes # 0.7 10^3/uL (0.2-0.9); Monocytes % 4.2 %; Neutrophils # 14.27 10^3/uL (1.8-7.7); Neutrophils % 86.2 %; Nucleated Red Blood Cells # 0.2 /100WBC; Nucleated Red Blood Cells % 1.4 %; Platelet Count 165 10^3/cmm (130-400); Red Blood Count 2.58 10^6/uL (4.1-5.3); Red Cell Distribution Width 18.2 % (12.1-15.1); White Blood Count 16.6 10^3/uL (4.0-10.0)
[2020-06-01 11:52] LABS: Lactate (Lactic Acid level) 15.2 mmol/L (0.5-2.2)
--- NOTE | 2020-06-01 11:52 | PC.NURSE ---
Patient remains hypotensive. Spoke with Dr. Light about status. Does not wish to start levophed at this time. Will continue to monitor.
[2020-06-01 12:17] LABS: Hematocrit 26.1 % (37.0-47.0)
--- NOTE | 2020-06-01 12:50 | PC.NURSE ---
Called patient's critical lactic acid level to Dr. Light. No new orders given at this time.
[2020-06-01 12:56] LABS: Cortisol Random 89.76 ug/dL (2.47-19.5)
[2020-06-01] MEDS: adenosine 3 mg/mL SDV 2mL 6 MG IVP (13:40)
--- NOTE | 2020-06-01 14:03 | P.PN_ITS ---
Subjective Subjective: Interval history: Patient was seen in the morning at the bedside, she was on 3 pressors maxed on dopamine dobutamine and phenylephrine, bicarb drip running at 150 cc/h and normal saline at 75 mL/h, adenosine 6 mg was given for SVT her heart rate was in 150s with map of 40, her heart rate responded well to adenosine first dose however it rebounded to 150s again and 12 mg adenosine was administered which seemed to improve her heart rate, she was not cardioverted Skin mottling noted, low map, I was unsuccessful in getting radial arterial line requested anesthesia for femoral arterial line and central line placement Low map with low urine output, cold and clammy, patient was altered but verbally redirectable and talk with her family I talked with her family at the bedside, daughter is a DIRECTOR HYDROGEN STORAGE ENGINEERING, she was explained all of all current findings, hospital course, underlying etiology poor prognosis Overnight patient received 1 unit PRBC She is currently experiencing hemoptysis which I believe is necrotic food particle mixed with blood Chest x-ray showing bilateral groundglass opacities Her antibiotics were escalated last night with vancomycin along Primaxin CT neck was obtained last night which did not show rupture of Zenker'sdiverticula This morning potassium 3.4 bicarb 14, Creatinine 1.5, lactic acid 15 Magnesium 1.7 CK 430 Normal free T4 Calcium 6.1 I have asked nurse to hold bicarb drip I also discussed her findings with crm architect Dr. Villeda who read her echo yesterday which did not show any changes in ejection fraction Vitals/I&O/Wt Last Vital Signs Temp 98.3 F 06/01/20 12:00 Pulse 111 H 06/01/20 13:00 Resp 32 H 06/01/20 12:00 BP 49/33 06/01/20 13:00 Pulse Ox 91 06/01/20 13:00 05/31/20 06/01/20 06/01/20 21:59 06:59 14:59 Intake Total 1594.971 / 1594.971 Output Total Balance 1594.971 / 1594.971 Physical Exam Narrative: EXAM NARRATIVE: Extremely pale complexion Hemoptysis noted Cold clammy skin with skin mottling of knees Patient verbally redirectable otherwise very irritable, she was able to talk with her family S1, S2 sinus tachycardia with multiple episodes of SVTs up to 150s Bilateral breath sounds with rhonchi and crackles, she also have upper airway resonance down her chest as well due to slight increased diverticulum food regurgitation Abdomen soft nontender Villegas catheter draining concentrated urine Lower extremity no ischemia gangrene or ulcer however cold Irritable mood Left subclavian central line 06/01 Right femoral arterial line 06/01 Urinary Catheter Management^: Villegas: Cath Placed During This Visit: yes Reason for Continuing Indwelling Catheter: Accurate Measurement of Urinary Output in Critically Ill Patients Urinary Catheter Date of Insertion: 05/31/20 Urinary Catheter Time of Insertion: 07:13 Data : 06/01/20 10:56 06/01/20 06:45 Micro: Microbiology 05/29/20 23:00 Urine Culture - Final Urine,Clean Catch Escherichia coli A&P Assessment and plan (1) NSTEMI (non-ST elevated myocardial infarction): Status: Acute (2) High anion gap metabolic acidosis: Status: Acute (3) Sepsis: Status: Acute (4) Diastolic CHF: Status: Acute Qualifiers: Heart failure chronicity: chronic Qualified Code(s): I50.32 - Chronic diastolic (congestive) heart failure (5) Acute kidney injury: Status: Acute (6) Elevated lactic acid level: Status: Acute (7) Hypokalemia: Status: Acute (8) Dehydration: Status: Acute (9) Stenosis of right internal carotid artery: Status: Acute (10) Dysphagia: Status: Acute (11) Aspiration into lower respiratory tract: Status: Acute (12) Aspiration pneumonia: Status: Acute (13) Hypocalcemia: Status: Acute (14) Acute blood loss anemia: Status: Acute Additional A&P Information septic shock Initially was treated for UTI Her antibiotics were escalated for worsening of leukocytosis and lactic acidemia Ceftriaxone was escalated to Primaxin Currently on vancomycin Groundglass opacities left greater than right Urine culture growing E. coli Aspiration pneumonia I do believe she has microaspiration from her Zenker's diverticulum causing aspiration pneumonia, worsening of sepsis, leukocytosis Currently on 3 vasopressors we are avoiding Levophed because of her SVT/tachycardia with, maxed on dopamine dobutamine and phenylephrine DIC with sepsis Hold Lovenox Transfuse second unit of PRBC Source of sepsis UTI and aspiration pneumonia, Zenker's diverticulum however it has not ruptured CT neck showed similar dimensions as previous imaging Acute blood loss anemia Patient is experiencing hemoptysis today I do believe this is necrotic food debris mixed with blood Required 1 unit PRBC last night We will give her another another unit PRBC No any other source of bleeding noted Hold anticoagulation which she was getting for NSTEMI NSTEMI: Currently ACS medications on hold secondary to hemoptysis, acute blood loss anemia EF preserved no wall motion abnormality noted I do believe severe acidosis has a role to play although her ejection fraction is normal she has cold, clammy skin with signs of hypoperfusion, low urine output Dehydration secondary to recurrent vomiting currently on normal saline fluid Getting second unit PRBC Hypocalcemia secondary to use of bicarb I would hold bicarb infusion for now Give her 2 g of calcium gluconate SVTs: She received adenosine 6 mg and then 12 mg this morning with improvement in heart rate Hypoalbuminemia We will give her albumin today to see if that would help her with MAP Hypokalemia: Currently on normal saline with 40 mEq KCl Acute kidney injury Secondary to hypoperfusion severe cardiomyopathy metabolic acidosis due to septic shock Goals of care discussed with the daughter who is a DIRECTOR HYDROGEN STORAGE ENGINEERING, she was her caregiver, we had discussion at length, daughter after discussing with her family had decided DNR/DNI Guarded prognosis He is too unstable to be transferred to tertiary care Right femoral art line 06/01 Left subclavian line 06/01 Attestations Medical Necessity Statement*: Guarded prognosis currently on 3 vasopressors Time Spent in Patient Care: (>than 50% of time spent in counselling and/or direct pt care on unit) . 50mins Critical Care Time: Critical Care Time (min): 50 Procedures Arterial Line Size (Gauge): 20 Coding Level of Care Code Acute Composing Room Machinist Apprentice for Chg Fwd Diagnoses NSTEMI (non-ST elevated myocardial infarction) I21.4 High anion gap metabolic acidosis E87.2 Sepsis A41.9 Diastolic CHF I50.32 Heart failure chronicity: chronic Acute kidney injury N17.9 Elevated lactic acid level R79.89 Hypokalemia E87.6 Dehydration E86.0 Stenosis of right internal carotid artery I65.21 Dysphagia R13.10 Aspiration into lower respiratory tract T17.800A Aspiration pneumonia J69.0 Hypocalcemia E83.51 Acute blood loss anemia D62
[2020-06-01] MEDS: albumin 12.5 GM/250 ML VIAL IV (14:51)
[2020-06-01] MEDS: cefepime 2,000 MG in sodium chloride 0.9% (plus) 50 ML 100 MG IV (14:52)
[2020-06-01] MEDS: calcium gluconate 0.1 gm/mL 10% SDV 10mL 2 GM IVP (14:55)
[2020-06-01] MEDS: linezolid premix 600 MG/300 ML PREMIX 300 MG IV (14:57)
[2020-06-01] MEDS: pantoprazole 40 mg SDV IVP (14:57)
[2020-06-01 15:01] LABS: SARS Covid-2 Antigen Negative (Negative)
--- NOTE | 2020-06-01 15:32 | PC.OT ---
OT tx attempted. Nursing requests OT services be withheld today due to poor pt medical status.
--- NOTE | 2020-06-01 17:36 | P.PN_ITS ---
Subjective Subjective: Interval history: The events of the night were reviewed. Patient apparently became more more hypotensive. Currently she is on multiple vasopressors. Her blood pressure still runs in the low 60s and 70s. She also started coughing up blood. She has features of possible bilateral pneumonia. White cell count is elevated. Urine grew E. coli. Urine output is going down. The family decided to keep her in a DNR/DNI status Medications: Reviewed: Yes Medication Review Details: Current Medications Acetaminophen (Acetaminophen 325 Mg Tablet) 650 mg PO Q6H PRN PRN Reason: Mild/Mod Pain Or Temp >/= 101 Hydrocodone Bitart/Acetaminophen (Hydrocodone-Acetaminophen 10-325 Mg Tablet) 1 - 2 tab PO Q6H PRN PRN Reason: PAIN Last Admin: 05/31/20 03:18 Dose: 2 tab Documented by: Albuterol Sulfate (Albuterol 8 Gm Mdi) 2 puff INHALATION QID PRN PRN Reason: Shortness Of Breath Albuterol Sulfate (Albuterol 2.5 Mg/0.5 Ml Neb) 2.5 mg INHALATION Q4H.RESPIRATORY PRN PRN Reason: SHORTNESS OF BREATH Last Admin: 06/01/20 03:11 Dose: 2.5 mg Documented by: Hydrocortisone Sodium Succinate (Hydrocortisone 100 Mg/2 Ml Sdv) 100 mg IVP Q6H [facility]IVA Last Admin: 06/01/20 14:51 Dose: 100 mg Documented by: Potassium Chloride/Sodium Chloride (Sodium Chlor 0.9% + Kcl 40 Meq) 40 meq in 1,000 mls @ 30 mls/hr IV .Q24H SHIVA Last Admin: 06/01/20 10:30 Dose: 30 mls/hr Documented by: Imipenem/Cilastatin Sodium 250 (mg/ Sodium Chloride) 100 mls @ 200 mls/hr IV Q6H [facility]; Protocol Last Infusion: 06/01/20 14:32 Dose: Infused Documented by: Norepinephrine Bitartrate 4 mg (/ Dextrose) 254 mls @ 0 mls/hr IV .Q0M [facility]; Protocol Last Titration: 06/01/20 04:09 Dose: Infused Documented by: Dopamine HCl/Dextrose (Intropin Drip) 400 mg in 250 mls @ 13.693 mls/hr IV CONT [facility]; Protocol Last Admin: 06/01/20 15:27 Dose: 20 mcg/kg/min, 54.8 mls/hr Documented by: Phenylephrine HCl 25 mg/ (Sodium Chloride) 252.5 mls @ 0 mls/hr IV .Q0M [facility]; Protocol Last Admin: 06/01/20 11:09 Dose: 130 mcg/min, 78.8 mls/hr Documented by: Dobutamine HCl/Dextrose (Dobutamine Drip) 500 mg in 250 mls @ 0 mls/hr IV .Q0M [facility]; Protocol Last Admin: 06/01/20 16:16 Dose: 20 mcg/kg/min, 43.8 mls/hr Documented by: Phenylephrine HCl 50 mg/ (Sodium Chloride) 505 mls @ 0 mls/hr IV .Q0M [facility]; Protocol Last Admin: 06/01/20 13:40 Dose: 180 mcg/min, 109.1 mls/hr Documented by: Linezolid (Zyvox Premix) 600 mg in 300 mls @ 300 mls/hr IV Q12H [facility]; Protocol Last Infusion: 06/01/20 15:30 Dose: Infused Documented by: Cefepime HCl 2,000 mg/ Sodium (Chloride) 50 mls @ 100 mls/hr IV Q24H [facility]; Protocol Last Admin: 06/01/20 14:52 Dose: 100 mls/hr Documented by: Lorazepam (Lorazepam 2 Mg/Ml Inj 1 Ml) 0.5 mg IVP ONCE PRN PRN Reason: ANXIETY Last Admin: 06/01/20 08:16 Dose: 0.5 mg Documented by: Naloxone HCl (Naloxone 0.4 Mg/Ml Sdv) 0.1 mg IVP Q2M PRN PRN Reason: OPIATERV Non-Formulary Medication (Acidophilus-Pectin, [place] [Acidophilus Probiotic]) 1 cap PO TID [facility]IV[facility] Ondansetron HCl (Ondansetron 2 Mg/Ml Sdv 2 Ml) 4 mg IVP Q8H PRN PRN Reason: vomiting, or N/V if npo Last Admin: 06/01/20 15:28 Dose: 4 mg Documented by: Pantoprazole Sodium (Pantoprazole 40 Mg Sdv) 40 mg IVP Q12H [facility]IVA Last Admin: 06/01/20 14:57 Dose: 40 mg Documented by: Vitals/I&O/Wt Last Vital Signs Temp 97.7 F 06/01/20 16:00 Pulse 112 H 06/01/20 17:00 Resp 25 H 06/01/20 17:00 BP 50/25 06/01/20 17:00 Pulse Ox 89 L 06/01/20 17:00 06/01/20 06/01/20 06/01/20 06:59 14:59 22:59 Intake Total 1944.971 / 1944.971 519 / 2463.971 Output Total Balance 1944.971 / 1944.971 519 / 2463.971 Physical Exam Narrative: EXAM NARRATIVE: GENERAL: Patient is poorly responding to verbal commands. HEENT: Moderate pallor. No icterus or lymphadenopathy. The pupils are reactant to light. Oral cavity: There are no mucous membrane lesions. NECK: Trachea appears to be central. No masses noted. No JVD or thyromegaly appreciated. No carotid bruit. RESPIRATORY: Chest is symmetrical. No intercostals muscle retraction or any accessory muscle activation. There is no chest wall tenderness. Breath sounds are heard bilaterally. No rales or rhonchi heard. No evidence of any consolidation. BREASTS: Deferred. HEART: The heart sounds are normal. No S3 or S4. No significant murmurs. No pericardial rub. ABDOMEN: Vague tenderness in epigastric area. No organomegaly appreciated. Bowel sounds are normally heard. : Deferred. RECTAL: Deferred. LYMPHATIC: No lymphadenopathy noted in the neck. EXTREMITIES: Cold and clammy. MUSCULOSKELETAL: No acute joint deformities or swelling SKIN: There are no significant scars or skin rash noted. NEUROPSYCHIATRIC: The patient is alert and oriented x3. No focal motor deficits noted Urinary Catheter Management^: Villegas: Cath Placed During This Visit: yes Reason for Continuing Indwelling Catheter: Accurate Measurement of Urinary Output in Critically Ill Patients Urinary Catheter Date of Insertion: 05/31/20 Urinary Catheter Time of Insertion: 07:13 Data : 06/01/20 10:56 06/01/20 06:45 Micro: Microbiology 05/31/20 07:12 Urine Culture - Preliminary Urine Catheterized 05/29/20 23:00 Urine Culture - Final Urine,Clean Catch Escherichia coli A&P Assessment and plan (1) Hypotension: Possibly multifactorial. Since it is not responding to the vasopressors and also since LV ejection fraction appears to be within normal limits, sepsis might be the most likely possibility. Status: Acute Qualifiers: Hypotension type: other hypotension type Qualified Code(s): I95.89 - Other hypotension (2) NSTEMI (non-ST elevated myocardial infarction): Because of the hemoptysis and the drop in the hemoglobin, the heparin was discontinued. Status: Acute (3) High anion gap metabolic acidosis: Dehydration/sepsis. Urine culture growing E. coli. Status: Acute (4) Chronic diastolic heart failure: Seems compensated. Status: Acute (5) Acute kidney injury: Could Be multifactorial. Status: Acute (6) Sepsis: Management as per the primary Status: Acute Qualifiers: Sepsis type: Escherichia coli Sepsis acute organ dysfunction status: with acute organ dysfunction Severe sepsis acute organ dysfunction type: unspecified Severe sepsis shock status: with septic shock Qualified Code(s): A41.51 - Sepsis due to Escherichia coli [E. coli]; R65.21 - Severe sepsis with septic shock Additional A&P Information Other problems are Anemia Hemoptysis Urosepsis Possible pneumonia May continue on the conservative measures. Patient's overall prognosis is poor. Family decided to keep her DNI DNR. Attestations Medical Necessity Statement*: Patient requires continued hospital stay for close monitoring and further management Procedures Arterial Line Size (Gauge): 20 Coding Level of Care Code Acute Box Shook Patcher for g Fwd Diagnoses Hypotension I95.89 Hypotension type: other hypotension type NSTEMI (non-ST elevated myocardial infarction) I21.4 High anion gap metabolic acidosis E87.2 Chronic diastolic heart failure I50.32 Acute kidney injury N17.9 Sepsis A41.51; R65.21 Sepsis type: Escherichia coli Sepsis acute organ dysfunction status: with acute organ dysfunction Severe sepsis acute organ dysfunction type: unspecified Severe sepsis shock status: with septic shock
[2020-06-01 17:46] LABS: Glucose Point of Care 182 mg/dL (70-110)
[2020-06-01] MEDS: metoclopramide 5 mg/mL SDV 2 mL IVP (20:09)
[2020-06-01] MEDS: morphine 4 mg/mL SDV 1 mL 2 MG IVP (20:09)
--- NOTE | 2020-06-01 21:03 | PC.NURSE ---
2033 - Heart rate decreased to 40's with gasping respirations and SBP 30's. Called Daughter, Tender and notified of decline in patients condition. 2044 -- No spontaneous respirations noted, PEA noted on registered nurse cardiac with rate in 20's on monitor. 2049 -- Asystole noted on registered nurse cardiac, No respirations auscultated, no apical pulse auscultated, no blood pressure. Pronounced patient. Nursing correctional case records supervisor notified. Dr. Scott notified. 2054 -- Daughter at bedside. Nursing correctional case records supervisor called [facility] not notify of .
--- NOTE | 2020-06-01 23:04 | PC.NURSE ---
Transferred to [facility] per nursing welding production supervisor.
--- NOTE | 2020-06-02 03:41 | PC.NURSE ---
[facility] notified of pt @\ 2110 Pt transferred to [facility] @ [id number] Update from [facility] 0342 - pt is potential donor, [facility]TS unable to reach family. [facility] requesting [facility] to hold pt at this time.
--- NOTE | 2020-06-02 08:14 | PM.DDS ---
Discharge Providers DDS Date of Admission: 05/30/20 17:06 Date Summary Completed: 06/02/20 Attending Provider at Admission: Jairon Scott MD Time of : 20:50 Attending Provider at Discharge: Faustino Light MD Primary Care Provider: DO MARNIE Hurley Diagnoses Hospital Diagnoses (1) Hypotension: Qualifiers: Hypotension type: other hypotension type Qualified Code(s): I95.89 - Other hypotension (2) NSTEMI (non-ST elevated myocardial infarction): (3) High anion gap metabolic acidosis: (4) Chronic diastolic heart failure: (5) Acute kidney injury: (6) Sepsis: Qualifiers: Sepsis acute organ dysfunction status: with acute organ dysfunction Sepsis type: Escherichia coli Severe sepsis acute organ dysfunction type: unspecified Severe sepsis shock status: with septic shock Qualified Code(s): A41.51 - Sepsis due to Escherichia coli [E. coli]; R65.21 - Severe sepsis with septic shock Reason for Visit Reason for Visit: STROKE LIKE SYMP. Summary Date and Time of Date of : 06/01/20 Time of : 20:50 Summary Summary: 64-year-old female who was admitted for management of recurrent nausea vomiting secondary to Zenker's diverticulum she was extremely dehydrated and acidotic secondary to lactic acidemia due to dehydration. Initially she was treated for sepsis secondary to UTI however her clinical course got complicated with septic shock for which she was transferred to ICU. Her acidosis was worsening and she started having microaspiration from her Zenker's diverticulum, she developed aspiration pneumonia on top of her UTI which further deteriorated her condition. She was also diagnosed with NSTEMI for which she was started on ACS protocol, Dr. Quintero and Dr. Villeda cardiology were involved due to right internal carotid stenosis and NSTEMI. She was on therapeutic Lovenox, carotid Doppler and CTA neck had some in discrepancy however she never expressed any signs of neurological deficits. Unfortunately in the next 24 hours she started experiencing hemoptysis her hemoglobin dropped for which she required 2 units of PRBC with worsening of acidosis and sepsis. Repeat CT neck did not show ruptured diverticulum however revealed bilateral groundglass opacities most likely secondary to aspiration pneumonia from her Zenker's diverticulum. She was on 3 vasopressors, Lovenox was discontinued due to anemia. Family was updated and notified. Daughter who was a NURSES SUPERVISOR after discussion with rest of the family member and Ms. Vanessa decided to pursue DNR/DNI status and agreed with vasopressors antibiotics and fluids. Ms. Vanessa also received albumin but it was not improving her blood pressure at all. Anesthesia was called who placed right femoral artery and left subclavian central line. Her mean arterial pressure was continuously decreasing despite adequate albumin fluid resuscitation and 3 vasopressors her echo revealed normal EF. Secondary to worsening septic shock due to UTI and aspiration pneumonia with severe metabolic acidosis Ms. Vanessa on 06/01/20 at 2049 Additional Data Confirmation of as documented by pronouncing clinician: no pulse Family: at bedside Additional persons at bedside: nursing staff Attending/PCP notified?: Attending notified Was code activated?: No Autopsy requested?: No Advance directives?: No Hospice patient?: No Discharge Plan Discharge Patient Disposition: At Medical Facility Condition: Stable Prescriptions: No Action ondansetron HCl 4 mg tablet 4 mg PO Q6H PRN (Reason: Nausea And Vomiting) RF: 0 pantoprazole 40 mg tablet,delayed release (DR/EC) 40 mg PO BID@08,16 RF: 0 diphenhydramine HCl [Benadryl] 25 mg Capsule 50 - 75 mg PO BEDTIME RF: 0 albuterol sulfate [ProAir HFA] 90 mcg/actuation Hfa Aerosol Inhaler 2 puff INHALATION QID PRN (Reason: Shortness Of Breath) RF: 0 acidophilus-pectin, citrus [Acidophilus Probiotic] 100 million cell-10 mg Capsule 1 cap PO TID RF: 0 Narcan 4 mg/actuation spray,non-aerosol See Rx Instructions .ROUTE .COMPLEX RF: 0 nystatin 100,000 unit/mL suspension See Rx Instructions .ROUTE .COMPLEX RF: 0 potassium chloride 20 mEq tablet extended release See Rx Instructions .ROUTE .COMPLEX RF: 0 tizanidine 4 mg tablet 2 - 4 mg PO BID RF: 0 hydrocodone-acetaminophen 10-325 mg tablet See Rx Instructions .ROUTE .COMPLEX RF: 0 Sola-Hiram Original 325-1,916-1,000 mg Tablet, Effervescent 1 tab PO PRN RF: 0 aspirin 325 mg Tablet 325 mg PO BEDTIME RF: 0 Referrals: Kashmir Lebron DO [Primary Care Provider] - Probable Cause of Probable cause of : Abdominal pain DS Attestations Time Spent in /Discharge Care*: less than 30 min Quality - AMI: AMI present?: No Quality - Stroke: CVA present?: No Symptom Onset Unknown: Yes Quality - VTE: VTE present?: Yes Deep Vein Thrombosis/Pulmonary Embolism Present on Admission: No Coding Level of Care Code Acute Treating Inspector for [facility] Fwd Diagnoses Hypotension I95.89 Hypotension type: other hypotension type NSTEMI (non-ST elevated myocardial infarction) I21.4 High anion gap metabolic acidosis E87.2 Chronic diastolic heart failure I50.32 Acute kidney injury N17.9 Sepsis A41.51; R65.21 Sepsis acute organ dysfunction status: with acute organ dysfunction Sepsis type: Escherichia coli Severe sepsis acute organ dysfunction type: unspecified Severe sepsis shock status: with septic shock
--- NOTE | 2020-06-02 13:39 | PC.NURSE ---
[facility] CALLED THIS AM ABOUT 0900 STATING THEY WOULD BE TRYING TO GET IN TOUCH WITH THE FAMILY. PTS DAUGHTER, LIZ BELTRAN CALLED AROUND 1130 UPSET THAT HER MOM HAD NOT BEEN MOVED TO [facility]. I ATTEMPTED TO EXPLAIN TO HER ABOUT [facility]. SHE STATED SOMETHING SIMILAR TO WE DON'T WANT TO DONATE. WE THOUGHT EVERYTHING WAS TAKEN CARE OF LAST NIGHT . I AGAIN TRIED TO EXPLAIN. I THEN IMMEDIATELY CALLED [facility] AND TOLD THEM WHAT WAS HAPPENING. I GAVE THEM LIZ'S PHONE NUMBER. WITHIN 15 MINUTES BRIAN LOPES CALLED AND TOLD ME THAT THE FAMILY WAS UPSET AND WANTING TO KNOW WHY WE HADN'T RELEASED YET. HE WAS INSISTENT THAT HE COME AND GET THE BODY. I AGREED AND HE CAME AND TRANSPORTED THE BODY TO [facility]. [facility] AT THIS TIME ([phone]) STILL HAS NOT CALLED BACK.
--- NOTE | 2020-06-03 08:39 | DCPLANNER ---
safety and occupational health manager received phone call from Tiffany at [facility] asking who the doctor was. JAKE told her summary was completed by MD Kuldeep.
== END 2020-06-01 20:50 | disposition expired | DRG 871 ==
LOC: ER 05-30 00:35 → MEDSURG 05-30 00:47 → ICU 05-31 07:10
PROVIDERS: Admitting Provider Family Medicine; Emergency Provider Family Medicine; PCP Internal Medicine; Visit Provider Internal Medicine
DX: A41.9 Sepsis, unspecified organism (principal); R65.21 Severe sepsis with septic shock; I21.4 Non-ST elevation (NSTEMI) myocardial infarction; J69.0 Pneumonitis due to inhalation of food and vomit; G93.41 Metabolic encephalopathy; I13.0 Hypertensive heart and chronic kidney disease with heart failure and stage 1 through stage 4 chronic kidney disease, or unspecified chronic kidney disease; I50.32 Chronic diastolic (congestive) heart failure; E87.1 Hypo-osmolality and hyponatremia; E87.2 Acidosis; N17.9 Acute kidney failure, unspecified; N39.0 Urinary tract infection, site not specified; R04.2 Hemoptysis; D62 Acute posthemorrhagic anemia; I47.1 Supraventricular tachycardia; W18.30XA Fall on same level, unspecified, initial encounter; Y93.9 Activity, unspecified; Y92.230 Patient room in hospital as the place of occurrence of the external cause; Z86.73 Personal history of transient ischemic attack (TIA), and cerebral infarction without residual deficits; N18.2 Chronic kidney disease, stage 2 (mild); K22.5 Diverticulum of esophagus, acquired; Z99.3 Dependence on wheelchair; E86.0 Dehydration; F17.210 Nicotine dependence, cigarettes, uncomplicated; E87.6 Hypokalemia; I65.21 Occlusion and stenosis of right carotid artery; N20.0 Calculus of kidney; E02 Subclinical iodine-deficiency hypothyroidism; R13.10 Dysphagia, unspecified; B96.20 Unspecified Escherichia coli [E. coli] as the cause of diseases classified elsewhere; Z66 Do not resuscitate; I95.9 Hypotension, unspecified
CPT/HCPCS: 36415; 36416; 36556; 36592; 36600; 36620; 51702; 70450; 71045; 71250; 74176; 74177; 80048; 80053; 81001; 82009; 82140; 82533; 82550; 82570; 82803; 82962; 83036; 83605; 83735; 84100; 84300; 84439; 84443; 84481; 84484; 85014; 85018; 85025; 85362; 85378; 85384; 85610; 85730; 85999; 86140; 86850; 86900; 86920; 87040; 87077; 87086; 87186; 87426; 93005; 93308; 93880; 94640; 96365; 96372; 97110; 97161; 97166; 99285; C9113; G0378; J0153; J0610; J0692; J0696; J0743; J1250; J1265; J1650; J1720; J1940; J2020; J2060; J2270; J2370; J2405; J2765; J3370; J3475; J3480; J3490; J7030; J7040; J7050; J7611; P9016; P9041; Q9967